=== PATIENT | male | born 1965 | race Caucasian/White ===

== ENCOUNTER → 2017-08-29 15:43 | Outpatient (CLI) | payer BC, SELFPAY ==
[2017-08-29 18:11] LABS: ALB/GLOB Ratio 1.1 RATIO (0.9-2.4); AST(SGOT) 17 U/L (15-37); Alanine Aminotransfer ALT/SGPT 29 U/L (16-61); Albumin, Serum 3.8 g/dL (3.2-5.0); Alkaline Phosphatase 63 U/L (45-117); Anion Gap 5 (5-15); BUN 16 mg/dL (7-18); BUN/Creat Ratio 16.4 RATIO (10-20); Calcium,Total 8.5 mg/dL (8.5-10.1); Chloride 106 mmol/L (98-107); Cholesterol 153 mg/dL (200); Creatinine, Serum 0.98 mg/dL (0.70-1.30); EST Glomerular Filtration Rate 86 mL/min (>60); Est Glom Filt Rate - Afr Amer 104 mL/min (>60); Globulin 3.4 g/dL (2.2-4.2); Glucose 85 mg/dL (74-106); High Density Lipoprotein 51 mg/dL; PSA,Total - Annual Screen 0.34 ng/mL (0.00-4.00); Protein, Total 7.2 g/dL (6.4-8.2); Sodium Level 140 mmol/L (136-145); Triglycerides 62 mg/dL; Very Low Density Lipoprotein 12 mg/dL (5-40)
== END ==
PROVIDERS: Family Provider Family Medicine; PCP Family Medicine; Visit Provider Family Medicine
DX: R73.01 Impaired fasting glucose (principal); Z12.5 Encounter for screening for malignant neoplasm of prostate
CPT/HCPCS: 36415; 80053; 80061; 84153; G0103

== ENCOUNTER → 2018-02-10 15:33 | Outpatient (CLI) | payer BC, SELFPAY ==
--- NOTE | 2018-02-10 15:38 | RAD_ITS ---
STUDY: X-RAY - PELVIS AND BILATERAL HIPS REASON FOR EXAM: Male, 52 years old. Osteoarthritis TECHNIQUE: Radiological exam, hip, bilateral, with pelvis when performed; 3-4 views COMPARISON: None. FINDINGS: There is a non-specific bowel gas pattern. Normal visualized soft tissue structures. There is narrowing with cortical sclerosis and osteophyte formation of the sacroiliac joint consistent with degenerative osteoarthritic changes. Normal bilateral superior and inferior pubic rami. Normal pubic symphysis. Normal bilateral ischial tuberosities. There is advanced narrowing of the right hip joint with sclerosis and subchondral cyst formation and remodeling of the right femoral head. There is moderate narrowing of the left hip joint. RAD/HIP, UNI W/ Pelvis 2-3 Views IMPRESSION: Severe degenerative change of the right hip joint. Moderate degenerative change of the left hip joint. Electronically Signed: Sarah Carrasco MD at 15:39 EDT Tel , Service support ,
--- NOTE | 2018-02-10 15:38 | RAD_ITS ---
STUDY: X-RAY - LUMBAR SPINE REASON FOR EXAM: Male, 52 years old. Lumbar spine pain TECHNIQUE: 5 view(s) of the lumbar spine were obtained. COMPARISON: None FINDINGS: There is a straightening of the physiologic lordosis. There is no substantial scoliosis. There is a normal alignment of the vertebrae. There is multilevel endplate spondylosis of the lumbar vertebrae. There is mild disc space narrowing L1-L2 L2-L3 and L5-S1. There is no apparent acute loss of height or alignment. The soft tissue structures are unremarkable. RAD/L/S Spine Min 4 Views IMPRESSION: Degenerative change. Straightening of the physiologic lordosis which can be associated with muscle spasm or pain. Electronically Signed: Sarah Carrasco MD at 15:38 EDT Tel , Service support ,
== END ==
PROVIDERS: Family Provider Family Medicine; PCP Family Medicine; Referring Provider Family Medicine; Visit Provider Family Medicine
DX: M16.10 Unilateral primary osteoarthritis, unspecified hip (principal); M54.5 Low back pain
CPT/HCPCS: 72110; 73502

== ENCOUNTER 2018-04-01 16:30 | Outpatient (RCR) | payer BC, SELFPAY ==
--- NOTE | 2018-02-19 13:05 | HP.PTEVAL_ITS ---
Patient's Visit Information CHERRY SAUCEDA is a 52 year old M referred to Physical Therapy by Kj Schilling with a diagnosis of Hip OA. Date of Evaluation: 02/19/18 Physical Therapist: Norma Wellington - Visit Plan Frequency: 2x /Week Duration: 6 Weeks Plan: 2X/ week for 6 weeks for stretching of B hips to increase flexability, B hip and core strength, gait training to aim for larger strides, functional activities with HEP/gym membership routine. Pt's x-rays show severe OA R hip and moderate OA L hip - Subjective Subjective: Pt has increased pressure around the lower waist and legs and stiffness of the legs so much that a few weeks ago it became very stiff to walk around. His R hip is going bad and thinks that the L one is going bad also. 5 years ago he had an x-ray of the R hip and that time his R hip showed moderate hip arthritis. He does not take pain relievers until more recently. He was given some meloxicam and takes one daily. He did get a muscle relalor every day and does help a little.... The biggest problems is that his muscles are tight and tense. He can not exercise cause it has been getting difficult to get on a radha and spread his legs and also to ride the mower. SOmedays he is stiff and other days he is fine. Stairs: are difficult. He was trying to walk but everything got stiff but feels more on lower body. He has been under more stress lately and his back is tense as well as legs etc. Last 6 months felt more stiffer. He sits at a desk all day. He does get up some.... - Pain R hip pain Pain Intensity (Out of 10): 7 L hip pain Pain Intensity (Out of 10): 4 back pain Pain Intensity (Out of 10): 5 - Objective Gait: walks with short stride, heels together, walks with his R forefoot abducted. Pt has a difficult time rise his heel on the R compared to the L. He is able to raise toes B with decreased ROM. Trunk AROM: flexion 100%, ext to neutral, SB B 75%. Tight B HS, gastroc, hip flexor, and adductors, and pirifomis B. Pt actually has almost negative AROM R hip IR and diminshed L hip IR on the L. Very limited into B Hip ER/IR AROM. LE MMT: hip abd R 4-/5 and L 4/5, B hip ext 3-/5. R hip flex 3+/5 and L 4/5, B knee flexion 4-/5, B knee ext 4/5 - Goals Goal 1:: I HEP Goal Time Frame: 6-8 Weeks Goal 2:: Decrease overall stiffness and be able to move through ADL's with increase 50% ease Goal Time Frame: 6-8 Weeks Goal 3:: Walk with increase strides without increase pain Goal Time Frame: 6-8 Weeks Goal 4:: Be able to get onto a bike without having feeling of pulled groin Goal Time Frame: 6-8 Weeks - Rehabilitation Potential Rehabilitation Potential: Good - Anticipated Interventions Patient/Client Instruction: Educate patient on: Condition, Plan of Care For the Purpose of:: To decrease pain, To decrease swelling/inflammation, To increase ROM, To improve nutrient delivery to tissue, To improve muscle performance and motor function, To improve ability to perform ADL's, To increase tolerance to activity/condition/position, To improve performance and independence with ADL's, To improve ability of physical actions for home/community/work/leisure, To improve gait and locomotor functions, To improve health of tissue, To decrease soft tissue restriction, To increase flexibility/ROM, To improve endurance, To improve balance, To improve safety with gait Therapeutic Exercise to Include: Strength training, Balance training, Postural training, Flexibilty training, Gait and locomotor training, Neuromotor development, Passive ROM, Active ROM, Dynamic Lumbar Stabilization For the Purpose of:: To decrease pain, To decrease swelling/inflammation, To increase ROM, To increase oxygenation perfusion, To improve muscle performance a nd motor function, To improve ability to perform ADL's, To increase tolerance to activity/condition/position, To improve performance and independence with ADL's, To improve ability of physical actions for home/community/work/leisure, To improve gait and locomotor functions, To improve health of tissue, To decrease soft tissue restriction, To increase flexibility/ROM, To improve balance Manual Therapy Techniques to Include: Passive ROM, Soft tissue mobilization For the Purpose of:: To decrease pain, To increase ROM, To improve nutrient delivery to tissue, To improve muscle performance and motor function, To improve ability to perform ADL's Thank you for the opportunity to evaluate your patient. For Medicare and Medicare HMO plans, please review the plan of care and approve it. It will need to be FAXED BACK to us at [phone] for Medicare purposes. Please let me know if there are questions or concerns regarding this plan of care. Physician Signature: Date:
--- NOTE | 2018-03-04 17:10 | HP.PTEVAL ---
Patient's Visit Information CHERRY SAUCEDA is a 52 year old M referred to Physical Therapy by Kj Schilling with a diagnosis of Hip OA. Date of Evaluation: 02/19/18 Physical Therapist: Norma Wellington - Visit Plan Frequency: 2x /Week Duration: 6 Weeks Plan: Cont with focus on hip flexor stretching and inhibition. 2X/ week for 6 weeks for stretching of B hips to increase flexability, B hip and core strength, gait training to aim for larger strides, functional activities with HEP/gym membership routine. Pt's x-rays show severe OA R hip and moderate OA L hip - Subjective Subjective: Pt has increased pressure around the lower waist and legs and stiffness of the legs so much that a few weeks ago it became very stiff to walk around. His R hip is going bad and thinks that the L one is going bad also. 5 years ago he had an x-ray of the R hip and that time his R hip showed moderate hip arthritis. He does not take pain relievers until more recently. He was given some meloxicam and takes one daily. He did get a muscle relalor every day and does help a little.... The biggest problems is that his muscles are tight and tense. He can not exercise cause it has been getting difficult to get on a radha and spread his legs and also to ride the mower. SOmedays he is stiff and other days he is fine. Stairs: are difficult. He was trying to walk but everything got stiff but feels more on lower body. He has been under more stress lately and his back is tense as well as legs etc. Last 6 months felt more stiffer. He sits at a desk all day. He does get up some.... - Pain R hip pain Pain Intensity (Out of 10): 4 L hip pain Pain Intensity (Out of 10): 5 Comment: sore back pain Pain Intensity (Out of 10): 2 Comment: sore - Objective Gait: walks with short stride, heels together, walks with his R forefoot abducted. Pt has a difficult time rise his heel on the R compared to the L. He is able to raise toes B with decreased ROM. Trunk AROM: flexion 100%, ext to neutral, SB B 75%. Tight B HS, gastroc, hip flexor, and adductors, and pirifomis B. Pt actually has almost negative AROM R hip IR and diminshed L hip IR on the L. Very limited into B Hip ER/IR AROM. LE MMT: hip abd R 4-/5 and L 4/5, B hip ext 3-/5. R hip flex 3+/5 and L 4/5, B knee flexion 4-/5, B knee ext 4/5 - Goals Goal 1:: I HEP Goal Time Frame: 6-8 Weeks Goal 2:: Decrease overall stiffness and be able to move through ADL's with increase 50% ease Goal Time Frame: 6-8 Weeks Goal 3:: Walk with increase strides without increase pain Goal Time Frame: 6-8 Weeks Goal 4:: Be able to get onto a bike without having feeling of pulled groin Goal Time Frame: 6-8 Weeks - Rehabilitation Potential Rehabilitation Potential: Good - Anticipated Interventions Patient/Client Instruction: Educate patient on: Condition, Plan of Care For the Purpose of:: To decrease pain, To decrease swelling/inflammation, To increase ROM, To improve nutrient delivery to tissue, To improve muscle performance and motor function, To improve ability to perform ADL's, To increase tolerance to activity/condition/position, To improve performance and independence with ADL's, To improve ability of physical actions for home/community/work/leisure, To improve gait and locomotor functions, To improve health of tissue, To decrease soft tissue restriction, To increase flexibility/ROM, To improve endurance, To improve balance, To improve safety with gait Therapeutic Exercise to Include: Strength training, Balance training, Postural training, Flexibilty training, Gait and locomotor training, Neuromotor development, Passive ROM, Active ROM, Dynamic Lumbar Stabilization For the Purpose of:: To decrease pain, To decrease swelling/inflammation, To increase ROM, To increase oxygenation perfusion, To improve muscle performance and motor function, To improve ability to perform ADL's, To increase tolerance to activity/condition/position, To improve performance and independence with ADL's, To improve ability of physical actions for home/community/work/leisure, To improve gait and locomotor functions, To improve health of tissue, To decrease soft tissue restriction, To increase flexibility/ROM, To improve balance Manual Therapy Techniques to Include: Passive ROM, Soft tissue mobilization For the Purpose of:: To decrease pain, To increase ROM, To improve nutrient delivery to tissue, To improve muscle performance and motor function, To improve ability to perform ADL's Thank you for the opportunity to evaluate your patient. For Medicare and Medicare HMO plans, please review the plan of care and approve it. It will need to be FAXED BACK to us at [phone] for Medicare purposes. Please let me know if there are questions or concerns regarding this plan of care. Physician Signature: Date:
--- NOTE | 2018-04-01 17:25 | HP.PTDCSUM ---
HP - PT D/C Summary It has been my pleasure to treat CHERRY SAUCEDA under orders from Kj Schilling, for the diagnosis of Hip OA for a total of 12 visit(s). Discharge Date: 04/01/18 Please see the following information for a summary of their discharge status. - Subjective Subjective: Pt feels 60-70% improvement. He is now able to get on a stationary bike. Pts pain comes and goes depending on whether he sits to long or not. Really no rhyme or reason to it. Pt still able to sit and has to pull one leg up at a time. - Pain R hip pain Pain Intensity (Out of 10): 5 L hip pain Pain Intensity (Out of 10): 5 back pain Pain Intensity (Out of 10): 5 - Overall Improvement % Improvement: 70 - Objective Objective/Function: Gait: Walks with increased stride than at the eval....still not normal stride but definitly improved. - Goals Goal 1:: I HEP Goal Progress: Goal Met Goal 2:: Decrease overall stiffness and be able to move through ADL's with increase 50% ease Goal Progress: Goal Met Goal 3:: Walk with increase strides without increase pain Goal Progress: Progressing Goal 4:: Be able to get onto a bike without having feeling of pulled groin Goal Progress: Goal Met - Plan Plan: DC PT to Gym routine - D/C Information Discharge Comments: DC PT to HEP If there are questions or concerns regarding this patient's physical therapy, please feel free to call me at [phone]. Thank you for the referral of this patient. Sincerely, Norma Wellington
== END 2018-04-01 19:00 | disposition home or self-care (01) ==
LOC: PT 16:30
PROVIDERS: Family Provider Family Medicine; PCP Family Medicine; Referring Provider Family Medicine; Visit Provider Family Medicine
DX: M16.10 Unilateral primary osteoarthritis, unspecified hip (principal)
CPT/HCPCS: 97110; 97161

== ENCOUNTER 2020-12-01 12:40 | Emergency (ER) | payer OTHER, SELFPAY ==
[2020-12-01 12:42] VITALS: BP 150/96; PULSE 105; RESP 16; TEMP 35.8; O2SAT 96; BMI 42.0
--- NOTE | 2020-12-01 13:00 | CT_ITS ---
STUDY: CT ABDOMEN AND PELVIS WITHOUT CONTRAST REASON FOR EXAM: Male, 55 years old. Lower abdominal pain for 2 days. Abdominal cramping. Painful urination. RADIATION DOSAGE (If Supplied By Facility): CTDIvol = ( 22.49 ) mGy, DLP = ( 1560.55 ) mGycm TECHNIQUE: Transaxial images were obtained from the dome of the diaphragm to the symphysis pubis without oral contrast, and without intravenous contrast. Sagittal and coronal images were reconstructed. Individualized dose optimization techniques were used for this CT. COMPARISON: None. FINDINGS: Minimal increased linear markings at the lung bases suggestive of atelectasis. The visualized portions of the heart are within normal limits. Normal liver. Normal gallbladder and extrahepatic biliary system. Normal spleen. Normal pancreas. Normal bilateral adrenal glands. Normal right kidney. Normal left kidney. Normal visualized stomach. Normal small intestine. There is diverticulosis, with thickening of the colon wall, and pericolonic inflammation changes consistent with acute sigmoid diverticulitis. The appendix is visualized and appears normal. There is scattered atherosclerotic calcification of the abdominal aorta, without a demonstrated aneurysm. Normal inferior vena cava. Normal retroperitoneum. Normal urinary bladder. Normal abdominal wall. There are diffuse degenerative changes of the visualized lumbar spine. The patient is status post bilateral total hip replacements. CT/Abdomen/Pelvis without Cont IMPRESSION: Findings in keeping with a noncomplicated acute sigmoid diverticulitis with pericolonic inflammatory changes. Electronically Signed: Tony Burton MD at 13:54 EDT , Service support ,
[2020-12-01 13:04] VITALS: BP 150/96; PULSE 105; RESP 16; TEMP 35.8; O2SAT 96
[2020-12-01 13:33] LABS: White Blood Cells 0 SEEN /hpf (0-5)
[2020-12-01 13:36] LABS: Color, Urine Yellow (Yellow); Glucose, Dipstick Normal (Normal); Ketone-Dipstick 50 mg/dl (Negative); Leukocyte Esterase-Dipstick 25 /ul (Negative); Nitrite-Dipstick Negative (Negative); Occult Blood-Urine 150 /ul (Negative); Protein-Dipstick 30 mg/dl (Negative); Specific Gravity, Urine 1.025 (1.002-1.030); Urine Bilirubin Dipstick Negative (Negative); Urine Clarity Sl. Cloudy (Clear); Urine Urobilinogen 4 mg/dl (Normal)
[2020-12-01 13:37] LABS: Absolute Lymphocyte Count 1.66 X10^3/uL (0.83-4.51); Absolute Neutrophil Count 12.6 X10^3/uL (2.0-7.7); Basophil# 0.08 X10^3/uL; Basophil% 0.5 % (0-1); Differential Indicated SCAN CRITERIA MET; Eosinophil# 0.07 X10^3/uL; Eosinophils% 0.4 % (0-5); Lymphocyte # 1.66 X10^3/ul (0.83-4.51); Lymphocyte % 10.1 % (19-41); Mean Corp Hgb Conc 33.3 g/dL (32-36); Mean Corpuscular Hgb 27.8 pg (27.0-32.0); Mean Corpuscular Volume 83.3 fL (80-94); Mean Platelet Vol. 10.1 fl (6.2-12.0); Monocyte# 1.91 X10^3/uL; Monocyte% 11.6 % (0-10); NRBC Flagged by Analyzer 0 % (0-5); Neutrophil # 12.58 X10^3/uL (2.7-7.7); Neutrophil % 76.8 % (47-70); POSITIVE DIFFERENTIAL YES; Platelet Count 300 K/mm3 (150-450); RBC Distribution Width CV 14.1 % (11.6-14.6); RBC Distribution Width SD 42.5 fl (35.1-43.9); Red Blood Count 5.76 M/mm3 (4.6-6.2); White Blood Count 16.4 K/mm3 (4.4-11.0)
[2020-12-01 13:51] LABS: ALB/GLOB Ratio 0.8 RATIO (0.9-2.4); AST(SGOT) 21 U/L (15-37); Alanine Aminotransfer ALT/SGPT 34 U/L (16-61); Albumin, Serum 3.7 g/dL (3.2-5.0); Alkaline Phosphatase 64 U/L (45-117); Anion Gap 4 (5-15); BUN 11 mg/dL (7-18); BUN/Creat Ratio 10.4 RATIO (10-20); Calcium,Total 8.9 mg/dL (8.5-10.1); Chloride 101 mmol/L (98-107); Creatinine, Serum 1.06 mg/dL (0.70-1.30); EST Glomerular Filtration Rate 77 mL/min (>60); Est Glom Filt Rate - Afr Amer 94 mL/min (>60); Estimated Creatinine Clearance 92.63 ml/min; Globulin 4.5 g/dL (2.2-4.2); Glucose 120 mg/dL (74-106); Lipase 44 U/L (73-393); Potassium 3.8 mmol/L (3.5-5.1); Protein, Total 8.2 g/dL (6.4-8.2); Sodium Level 133 mmol/L (136-145)
[2020-12-01 13:54] LABS: Bacteria RARE /hpf (None Seen); Mucous, Urine 2+ /hpf (<or=2+); Red Blood Cells-Urine 0-5 SEEN /hpf (0-5); Squamous Epithelial Cells - UA 0-5 SEEN /hpf (0-5)
--- NOTE | 2020-12-01 14:08 | EX.ED.DYSGE1 ---
HPI History of Present Illness Chief Complaint: Other, Pain/Inj Narrative Narrative: Patient presents with 2 to 3-day history of abdominal pain and decreased p.o. intake. No blood in the stool, no constipation. No rectal pain. Most of the pain is suprapubic and left lower quadrant. No back pain no dysuria no testicular pain. Pain is achy mild to moderate and constant. PFSH PFSH Home Medications ciprofloxacin HCl 500 mg PO BID #14 tab 12/01/20 [Rx Last Taken Unknown] ciprofloxacin HCl [Cipro] 500 mg PO BID #14 tab 12/01/20 [Rx Last Taken Unknown] metronidazole [Flagyl] 500 mg PO Q8H #21 tab 12/01/20 [Rx Last Taken Unknown] metronidazole [Flagyl] 500 mg PO Q8H 7 Days #21 tab 12/01/20 [Rx Last Taken Unknown] oxycodone-acetaminophen [Percocet] 1 tab PO Q8H PRN 3 Days #10 tab 12/01/20 [Rx Last Taken Unknown] oxycodone-acetaminophen [Percocet] 1 tab PO Q8H PRN 3 Days #12 tab 12/01/20 [Rx Last Taken Unknown] Allergy/AdvReac Type Severity Reaction Status Date / Time No Known Allergies Allergy Verified 12/01/20 12:44 Social History Smoking Status: Never smoker ROS ROS ED ROS Narrative Past medical history: Reviewed, unremarkable Medications: Reviewed Social history: Noncontributory Review of systems: All systems negative except as indicated General: No fever Eyes: No visual changes ENT: No upper airway congestion, normal voice Neck: No neck pain Cardiovascular: No chest pain Respiratory: No shortness of breath or cough Gastrointestinal: Abdominal pain as in HPI Genitourinary: No dysuria Musculoskeletal: Denies myalgias no difficulty with ambulation Skin: No rash Neurological: No memory loss, confusion or any focal weakness Psych: No recent behavioral changes Hematologic: No easy bleeding or easy bruising EXAM Physical Exam Narrative Exam Narrative: Physical exam General: Well nourished, Well developed, No Acute Distress Head: Normocephalic, Atraumatic Eyes: Conjunctiva not pale ENT: Moist mucous membranes Neck: Supple, Nontender, No lymphadenopathy Cardiovascular: Regular rate, Regular rhythm Respiratory: No distress, CTA bilaterally Abdomen: Soft, suprapubic and left lower quadrant abdominal pain without any guarding or rebound. No CVA tenderness. Back: Nontender, Normal Inspection. Negative for: CVA tenderness Extremities: Nontender, No edema Skin: Normal color, No rash Neurological: Alert, Normal Strength, Normal Sensation Psychological: Normal affect Const Vital Signs: 12/01/20 12:42 12/01/20 13:04 Temperature 96.4 F L 96.4 F L Temperature Source Temporal Temporal Pulse Rate 105 H 105 H Respiratory Rate 16 16 Blood Pressure 150/96 H 150/96 H Blood Pressure Mean 114 114 Pulse Ox 96 96 Oxygen Delivery Method Room Air Room Air MDM MDM MDM Narrative Medical decision making narrative: Patient work-up is consistent with diverticulitis, it is uncomplicated with slight leukocytosis. I believe he meets criteria for discharge with outpatient treatment. He appears well. I will give IV Cipro and Flagyl and treat for home. He will be discharged with antibiotics and analgesics. Lab Data Labs: Laboratory Results - last 24 hr 12/01/20 12/01/20 12/01/20 13:23 13:23 13:23 WBC 16.4 H RBC 5.76 Hgb 16.0 Hct 48.0 MCV 83.3 MCH 27.8 MCHC 33.3 RDW Std Deviation 42.5 RDW Coeff of [place] 14.1 Plt Count 300 MPV 10.1 Immature Gran % (Auto) 0.600 Neut % (Auto) 76.8 H Lymph % (Auto) 10.1 L [place] % (Auto) 11.6 H Eos % (Auto) 0.4 Baso % (Auto) 0.5 Absolute Neuts (auto) 12.6 H Absolute Lymphs (auto) 1.66 Nucleated RBC % 0 Diff Path Review May foll Sodium 133 L Potassium 3.8 Chloride 101 Carbon Dioxide 28.0 Anion Gap 4 L BUN 11 Creatinine 1.06 Estim Creat Clear Calc 92.63 Est GFR (MDRD) Af Amer 94 Est GFR (MDRD) Non-Af 77 BUN/Creatinine Ratio 10.4 Glucose 120 H Calcium 8.9 Total Bilirubin 1.60 H AST 21 ALT 34 Alkaline Phosphatase 64 Total Protein 8.2 Albumin 3.7 Globulin 4.5 H Albumin/Globulin Ratio 0.8 L Lipase 44 L Urine Color Yellow Urine Clarity Sl. Cloudy Urine pH 5.0 Ur Specific [place] 1.025 Urine Protein 30 H Urine Glucose (UA) Normal Urine Ketones 50 H Urine Occult Blood 150 H Urine Nitrite Negative Urine Bilirubin Negative Urine Urobilinogen 4 H Ur Leukocyte Esterase 25 H Urine RBC 0-5 SEEN Urine WBC 0 SEEN Ur Squamous Epith Cells 0-5 SEEN Urine Bacteria RARE Urine Mucus 2+ Radiography Diagnostic Testing: Radiology Impression Abdomen/Pelvis CT 12/01/20 13:00 IMPRESSION: Findings in keeping with a noncomplicated acute sigmoid diverticulitis with pericolonic inflammatory changes. Electronically Signed: Tony Burton MD at 13:54 EDT , Service support , Discharge Plan Triage Chief Complaint: Other, Pain/Inj ED Provider: Rohit Castorena Dx/Rx/DC Orders Clinical Impression: Diverticulitis Instructions: Discharge Instructions for ... Prescriptions: New oxycodone-acetaminophen [Percocet] 5-325 mg tablet 1 tab PO Q8H PRN (Reason: pain) 3 Days Qty: 12 RF: 0 ciprofloxacin HCl [Cipro] 500 mg tablet 500 mg PO BID Qty: 14 RF: 0 metronidazole [Flagyl] 500 mg tablet 500 mg PO Q8H 7 Days Qty: 21 RF: 0 ciprofloxacin HCl [ciprofloxacin HCl] 500 MG tablet 500 mg PO BID Qty: 14 RF: 0 metronidazole [Flagyl] 500 mg tablet 500 mg PO Q8H Qty: 21 RF: 0 oxycodone-acetaminophen [Percocet] 5-325 mg tablet 1 tab PO Q8H PRN (Reason: pain) 3 Days Qty: 10 RF: 0 Primary Care Provider: Scott Schilling Referrals: Scott Schilling MD [Primary Care Provider] - 2 Days Disposition Disposition: Home, Self Care
[2020-12-01] MEDS: metroNIDAZOLE 500 MG/100 ML BAG 100 MG IV (14:15)
[2020-12-01] MEDS: Ciprofloxacin 400 MG/200 ML BAG 200 MG IV (15:19)
[2020-12-01 16:25] VITALS: BP 135/78; PULSE 76; RESP 16; O2SAT 99
[2020-12-02 13:47] LABS: Pathologist Review Reviewed
== END 2020-12-01 16:29 | disposition home or self-care (01) ==
PROVIDERS: Emergency Provider Emergency Medicine; PCP Family Medicine
DX: K57.92 Diverticulitis of intestine, part unspecified, without perforation or abscess without bleeding (principal)
CPT/HCPCS: 74176; 80053; 81001; 83690; 85025; 96365; 99283; J7030; A4216; J0744

== ENCOUNTER → 2024-06-08 | Outpatient (CLI) | payer BC, SELFPAY ==
[2024-06-08 16:16] LABS: Anion Gap 6 (5-15); BUN 18 mg/dL (7-18); BUN/Creat Ratio 16.5 RATIO (10-20); Calcium,Total 9.4 mg/dL (8.5-10.1); Chloride 104 mmol/L (98-107); Cholesterol 171 mg/dL (200); Creatinine, Serum 1.09 mg/dL (0.70-1.30); EST Glomerular Filtration Rate 74 mL/min (>60); Est Glom Filt Rate - Afr Amer 89 mL/min (>60); Glucose 115 mg/dL (74-106); High Density Lipoprotein 47 mg/dL; Potassium 4.6 mmol/L (3.5-5.1); Sodium Level 137 mmol/L (136-145); Triglycerides 94 mg/dL; Very Low Density Lipoprotein 19 mg/dL (5-40)
[2024-06-08 17:46] LABS: Absolute Lymphocyte Count 2.79 X10^3/uL (0.83-4.51); Absolute Neutrophil Count 6.3 X10^3/uL (2.0-7.7); Basophil% 0.9 % (0-1); Eosinophil# 0.44 X10^3/uL; Hemoglobin 14.3 g/dL (13.0-16.5); Lymphocyte # 2.79 X10^3/ul (0.83-4.51); Lymphocyte % 25.4 % (19-41); Mean Corp Hgb Conc 31.8 g/dL (32-36); Mean Corpuscular Hgb 26.8 pg (27.0-32.0); Mean Corpuscular Volume 84.4 fL (80-94); Mean Platelet Vol. 10.3 fl (6.2-12.0); Monocyte# 1.27 X10^3/uL; Monocyte% 11.6 % (0-10); NRBC Flagged by Analyzer 0 % (0-5); Neutrophil # 6.34 X10^3/uL (2.7-7.7); Neutrophil % 57.6 % (47-70); Platelet Count 337 K/mm3 (150-450); RBC Distribution Width CV 14.5 % (11.6-14.6); RBC Distribution Width SD 43.9 fl (35.1-43.9); Red Blood Count 5.33 M/mm3 (4.6-6.2)
[2024-06-08 18:11] LABS: AST(SGOT) 23 U/L (15-37); Alanine Aminotransfer ALT/SGPT 28 U/L (16-61); Albumin, Serum 3.5 g/dL (3.2-5.0); Alkaline Phosphatase 62 U/L (45-117); Bilirubin, Direct 0.13 mg/dL (0.00-0.30); Globulin 4.6 g/dL (2.2-4.2); Protein, Total 8.1 g/dL (6.4-8.2)
[2024-06-08 18:23] LABS: BNP,B-Type NATRIURETIC PEPTIDE 61.7 pg/mL (0-100)
== END | disposition home or self-care (01) ==
LOC: MFPLAB 11:26
PROVIDERS: PCP Family Medicine; Referring Provider Family Medicine; Visit Provider Family Medicine
DX: R60.0 Localized edema (principal); Z13.1 Encounter for screening for diabetes mellitus; Z13.220 Encounter for screening for lipoid disorders; Z12.5 Encounter for screening for malignant neoplasm of prostate
CPT/HCPCS: 36415; 80048; 80061; 80076; 83880; 84153; 84443; 85025; G0103

== ENCOUNTER → 2025-01-20 | Outpatient (CLI) | payer BC, SELFPAY ==
[2025-01-20 16:47] LABS: Mucous, Urine 0 SEEN /hpf (<or=2+)
[2025-01-20 17:59] LABS: Color, Urine Amber (Yellow); Glucose, Dipstick 100 mg/dl (Normal); Ketone-Dipstick 5 mg/dl (Negative); Leukocyte Esterase-Dipstick 500 /ul (Negative); Nitrite-Dipstick Positive (Negative); Occult Blood-Urine 150 /ul (Negative); Protein-Dipstick 30 mg/dl (Negative); Specific Gravity, Urine 1.025 (1.002-1.030); Urine Bilirubin Dipstick Negative (Negative)
[2025-01-20 18:16] LABS: Red Blood Cells-Urine 5-10 SEEN /hpf (0-5); Squamous Epithelial Cells - UA 5-10 SEEN /hpf (0-5); Transitional Epithelial - Ur 0-5 SEEN /hpf (0-5)
== END | disposition home or self-care (01) ==
LOC: LABSPEC 16:46
PROVIDERS: PCP Family Medicine; Visit Provider Family Medicine
DX: R39.11 Hesitancy of micturition (principal)
CPT/HCPCS: 81001; 87086; 87088; 87186

== ENCOUNTER 2025-01-21 16:26 | Inpatient (IN) | payer BC, SELFPAY ==
[2025-01-21] VITALS (15 sets, daily range): BP systolic 112–155; BP diastolic 61–131; PULSE 97–109; RESP 17–27; TEMP 36.3–37.4; O2SAT 92–96; BMI 44.0; BMI 43.3
--- NOTE | 2025-01-21 16:58 | RAD_ITS ---
PROCEDURE: CHEST PA AND LATERAL 01/21/2025 REASON FOR EXAM: SHORTNESS OF BREATH TECHNIQUE: Procedure Code: RADCXR Modality: DX Procedure: CHEST PA AND LATERAL COMPARISON: None. FINDINGS: Lungs/Pleura: No pneumothorax or pleural effusion. Bilateral patchy and reticular airspace opacities may be related to pulmonary edema, versus an infectious/inflammatory process. Heart/Mediastinum: Within normal limits. Bones/Soft tissues: Multilevel degenerative changes of the spine. RAD/Chest PA and Lateral IMPRESSION: Bilateral patchy and reticular airspace opacities may be related to pulmonary e nas, versus an infectious/inflammatory process depending on the clinical context. No pleural effusions. Reading Location: [facility]
--- NOTE | 2025-01-21 17:03 | ED.VIS.DYS ---
HPI History of Present Illness Chief Complaint: Shortness of Breath Narrative Narrative: Chief complaint and HPI: 59-year-old male with past medical history of sleep apnea presents for evaluation of chronic shortness of breath, peripheral edema, and urinary incontinence/frequency. Patient states for the past several months he has been having progressively worsening exertional shortness of breath. States he has a chronic cough with occasional clear/yellow phlegm. No history of COPD. Non-smoker. States for several months he has been having bilateral lower extremity edema which his PCP attributes to his sleep apnea. He does not use a CPAP and is scheduled to have a sleep study. Also endorses urinary incontinence and frequency over the past several days. No history of CHF. He denies any fever, chest pain, abdominal pain, nausea, vomiting, diarrhea, constipation, back pain. Review of systems: See HPI Medications: As listed on the chart Allergies: As listed on the chart PFSH: Per chart Vital signs: As listed on the chart. Reviewed. Physical exam: Gen: A&O x3, NAD Head: Normocephalic, atraumatic Eyes: No sclera icterus, conjunctiva clear, PERRL ENT: Moist mucous membranes Neck: Trachea midline, No JVD CV: Tachycardic, regular rhythm, no murmurs, bilateral nonpitting peripheral edema Resp: Lungs CTA BL but diminished in the bilateral bases, no w/r/c GI: Large body habitus, abd soft, non-distended, non-tender, no r/r/g Musc: Full ROM, no deformity Skin: Warm, dry Neuro: Alert, oriented, grossly intact, sensation intact Psych: Cooperative, appropriate mood and affect PFS PFS Medical History (Updated 01/21/25 @ 17:18 by Linda Ramirez) Diverticulitis Sleep apnea Home Medications ?Medication ?Instructions ?Recorded ?Last Taken ?Type hydroxyzine HCl 50 mg tablet 50 mg PO QHS PRN itching 01/21/25 Unknown History Allergy/AdvReac Type Severity Reaction Status Date / Time No Known Allergies Allergy Verified 01/21/25 16:30 Family History no significant family his Surgical History (Updated 01/21/25 @ 16:55 by Linda Ramirez) History of hip replacement Social History (Updated 01/21/25 @ 16:55 by Linda Ramirez) current occupational status: employed Smoking Status: Never smoker EXAM Physical Exam Const Vital Signs: 01/21/25 16:27 01/21/25 17:24 01/21/25 17:26 Temperature 98.8 F Temperature Source Temporal Pulse Rate 109 H 104 H Respiratory Rate 22 H 20 H Respiratory Effort Short of Breath Respiratory Depth Normal Respiratory Pattern Tachypnea Blood Pressure 152/96 H Blood Pressure Mean 114 Pulse Ox 96 94 Oxygen Delivery Method Room Air Room Air 01/21/25 17:30 01/21/25 17:30 01/21/25 17:45 Temperature 99.3 F H Temperature Source Oral Pulse Rate 102 H 102 H 105 H Respiratory Rate 21 H 20 H 27 H Respiratory Effort Respiratory Depth Respiratory Pattern Blood Pressure 132/81 H 132/81 H 135/113 H Blood Pressure Mean 96 98 121 Pulse Ox 93 94 94 Oxygen Delivery Method Room Air 01/21/25 18:00 01/21/25 18:15 01/21/25 18:30 Temperature Temperature Source Pulse Rate 100 100 97 Respiratory Rate 26 H 21 H 26 H Respiratory Effort Respiratory Depth Respiratory Pattern Blood Pressure 112/85 H 140/80 H 134/86 H Blood Pressure Mean 90 96 100 Pulse Ox 92 92 92 Oxygen Delivery Method 01/21/25 18:45 01/21/25 19:00 01/21/25 19:00 Temperature 99.1 F Temperature Source Oral Pulse Rate 101 H 101 H 101 H Respiratory Rate 20 H 26 H 20 H Respiratory Effort Respiratory Depth Respiratory Pattern Blood Pressure 138/89 H 140/87 H 144/131 H Blood Pressure Mean 102 104 137 Pulse Ox 93 94 92 Oxygen Delivery Method Room Air 01/21/25 19:15 Temperature 98.3 F Temperature Source Pulse Rate 104 H Respiratory Rate 18 Respiratory Effort Respiratory Depth Respiratory Pattern Blood Pressure 135/84 H Blood Pressure Mean 101 Pulse Ox 94 Oxygen Delivery Method MDM MDM MDM Narrative Medical decision making narrative: 59-year-old male with past medical history of sleep apnea presents for evaluation of chronic shortness of breath, peripheral edema, and urinary incontinence/frequency. Patient states for the past several months he has been having progressively worsening exertional shortness of breath. States he has a chronic cough with occasional clear/yellow phlegm. States for several months he has been having bilateral lower extremity edema which his PCP attributes to his sleep apnea. Also endorses urinary incontinence and frequency over the past several days. Differential diagnosis includes but is not limited to CHF exacerbation, pneumonia, untreated EDOUARD, arrhythmia, ACS, PE, UTI. Respiratory/cardiac workup including UA. CBC with leukocytosis of 22.7. No anemia. Platelets unremarkable. D-dimer unremarkable. CMP consistent with mild dehydration. Creatinine is 1.26. Previous creatinine in May was normal. Unknown if this is acute or chronic. No transaminitis. Troponin unremarkable. BNP unremarkable. UA positive for UTI. Urine culture ordered. Rocephin ordered. X-ray consistent with pulmonary edema however cannot officially rule out infection given that patient endorses a yellow phlegm will add on azithromycin along with the Rocephin for UTI which will cover community-acquired pneumonia as well as UTI. On reevaluation patient is mildly tachycardic. I do feel that he would benefit from admission for IV antibiotics and further workup of possible pulmonary edema. Lasix ordered. Patient discussed with Dr. Garrett who accepted admission. Patient updated of the results and the plan. He confirmed understanding. EKG: Interpreted by me/EM physician: EKG shows sinus tachycardia with nonspecific ST changes. Heart rate 105. Diagnostic: Interpreted by me/EM physician: Chest x-ray shows pulmonary edema concern for possible pneumonia. No large effusion or consolidation. No cardiomegaly. Radiology in agreement Impression: 1. UTI 2. Pulmonary edema 3. Possible pneumonia 4. Bilateral peripheral edema 5. Renal insufficiency, acute versus chronic Lab Data Labs: Laboratory Results - last 24 hr 01/21/25 01/21/25 16:44 17:49 WBC 22.7 H RBC 5.51 Hgb 15.0 Hct 44.5 MCV 80.8 MCH 27.2 MCHC 33.7 RDW Std Deviation 42.5 RDW Coeff of Martin 14.6 Plt Count 355 MPV 9.8 Immature Gran % (Auto) 1.000 H Neut % (Auto) 73.2 H Lymph % (Auto) 12.8 L Cobb % (Auto) 12.1 H Eos % (Auto) 0.3 Baso % (Auto) 0.6 Differential Comment SCANNED Platelet Estimate ADEQUATE D-Dimer Quant (PE/DVT) 0.48 Sodium 132 L Potassium 4.0 Chloride 96 L Carbon Dioxide 21.0 Anion Gap 15 BUN 13 Creatinine 1.26 H Estim Creat Clear Calc 100.83 Est GFR (MDRD) Non-Af 66 BUN/Creatinine Ratio 10.5 Glucose 180 H Calcium 9.2 Total Bilirubin 1.41 H AST 29 ALT 29 Alkaline Phosphatase 92 Troponin T High Sens 15 NT pro BNP II 88 Total Protein 8.8 H Albumin 4.2 Globulin 4.6 H Albumin/Globulin Ratio 0.9 Urine Color Flores Urine Clarity Turbid Urine pH 5.0 Ur Specific Mittie 1.025 Urine Protein 100 H Urine Glucose (UA) 50 H Urine Ketones 15 H Urine Occult Blood 150 H Urine Nitrite Positive H Urine Bilirubin 1 H Urine Urobilinogen 4 H Ur Leukocyte Esterase 500 H Urine RBC 0-5 SEEN Urine WBC 10-25 SEEN Ur Squamous Epith Cells 5-10 SEEN Amorphous Sediment 1+ Urine Bacteria 4+ Hyaline Casts 0-5 SEEN Fine Granular Casts 0-5 SEEN Coarse Granular Casts 0-5 SEEN Urine Mucus 1+ Radiography Diagnostic Testing: Clinical Impression(s) from Imaging Studies Chest X-Ray 01/21/25 16:58 IMPRESSION: Bilateral patchy and reticular airspace opacities may be related to pulmonary edema, versus an infectious/inflammatory process depending on the clinical context. No pleural effusions. Reading Location: [facility] Discharge Plan Triage Chief Complaint: Shortness of Breath ED Provider: Agustin Ferris Dx/Rx/DC Orders Prescriptions: No Action hydroxyzine HCl 50 mg tablet 50 mg PO QHS PRN (Reason: itching) Primary Care Provider: Kj Schilling Referrals: Kj Schilling MD [Primary Care Provider] - Print Language: Lithuanian
[2025-01-21 17:09] LABS: Hematocrit 44.5 % (40-54); Hemoglobin 15.0 g/dL (13.0-16.5); Mean Corp Hgb Conc 33.7 g/dL (32-36); Mean Corpuscular Volume 80.8 fL (80-94); Mean Platelet Vol. 9.8 fl (6.2-12.0); POSITIVE DIFFERENTIAL YES; Platelet Count 355 K/mm3 (150-450); RBC Distribution Width CV 14.6 % (11.6-14.6); RBC Distribution Width SD 42.5 fl (35.1-43.9); Red Blood Count 5.51 M/mm3 (4.6-6.2); White Blood Count 22.7 K/mm3 (4.4-11.0)
[2025-01-21 17:13] LABS: Differential Indicated SCAN CRITERIA MET
[2025-01-21 17:33] LABS: D-Dimer Quantitative (DVT/PE) 0.48 FEU/ug/m (0.27-0.49)
[2025-01-21 17:48] LABS: AST(SGOT) 29 U/L (<=37); Alanine Aminotransfer ALT/SGPT 29 U/L (<=46); Albumin, Serum 4.2 g/dL (3.5-5.0); Alkaline Phosphatase 92 U/L (40-129); Anion Gap 15 (5-15); BUN 13 mg/dL (4-19); BUN/Creat Ratio 10.5 RATIO (10-20); Calcium,Total 9.2 mg/dL (7.6-11.0); Carbon Dioxide 21.0 mmol/L (21.0-32.0); Chloride 96 mmol/L (98-108); Estimated Creatinine Clearance 100.83 ml/min (50-250); Globulin 4.6 g/dL (2.2-4.2); Glucose 180 mg/dL (70-99); Potassium 4.0 mmol/L (3.3-5.1); Pro- Brain NATRIURETIC PEPTIDE 88 pg/mL (<=900)
[2025-01-21 18:01] LABS: Troponin T High Sensitivity 15 ng/L (<=22)
[2025-01-21 18:04] LABS: Color, Urine Amber (Yellow); Glucose, Dipstick 50 mg/dl (Normal); Ketone-Dipstick 15 mg/dl (Negative); Leukocyte Esterase-Dipstick 500 /ul (Negative); Nitrite-Dipstick Positive (Negative); Occult Blood-Urine 150 /ul (Negative); Protein-Dipstick 100 mg/dl (Negative); Specific Gravity, Urine 1.025 (1.002-1.030)
[2025-01-21 18:06] LABS: Urine Bilirubin Dipstick 1 mg/dL (Negative)
[2025-01-21 18:21] LABS: Red Blood Cells-Urine 0-5 SEEN /hpf (0-5)
[2025-01-21 18:22] LABS: Squamous Epithelial Cells - UA 5-10 SEEN /hpf (0-5)
[2025-01-21 18:25] LABS: Fine Granular Cast- Urine 0-5 SEEN /lpf (0-5)
[2025-01-21 18:26] LABS: Mucous, Urine 1+ /hpf (<or=2+)
[2025-01-21] MEDS: Ceftriaxone 2 GM in 0.9% Normal Saline (50mL MB+) 50 ML IV (18:54)
--- NOTE | 2025-01-21 19:25 | HP.PCM.HOS_ITS ---
HPI - General General Date of Admission: 01/21/25 Date of Service: 01/21/25 Chief Complaint: Progressive shortness of breath HPI Narrative CHERRY SAUCEDA, is a 59 M who presented to [facility] ED on 01/21/2025 with progressive shortness of breath. Patient has minimal medical history, is not on any medications regularly at home. He presented today with progressively worsening shortness of breath over the past few months. Notes that symptoms became more noticeable in October of this year. He was treated with antibiotics at the time with some degree of improvement, but it has now worsened steadily over the past few months and has gotten to the point where he gets short of breath and winded with minimal exertion, so he came in for further evaluation. In the ED he was mildly tachycardic to the 100s, had low-grade fever to 99.3 F and mild hypertension to the 150s systolic. He was satting in the 92 to 94% range on room air at rest. Labs notable for WBC count 22 with neutrophil predominance, sodium 132, chloride 96, creatinine 1.26 (baseline around 1.0), glucose 180, T. bili 1.41. UA showed positive nitrites, 500 leukocyte esterase, 4+ bacteria. Chest x-ray showed bilateral patchy and reticular airspace opacities of unclear etiology. CT chest abdomen pelvis with IV contrast showed diffuse chronic interstitial lung disease and hepatomegaly with moderate diffuse hepatic steatosis. Given his presentation, hospitalist was contacted for admission. I saw the patient at bedside in the ED, was present. Patient was sitting comfortably at the edge of the bed, conversing normally and in no acute distress. He had good energy level during our encounter. Denied any shortness of breath at rest but notes that he does get winded with minimal exertion. He has had some lower extremity swelling but notes this is chronic for him. He reports mild burning with urination. Denies any prior history of UTIs or prostate issues. Reports generalized fatigue and low-grade fever. No other acute concerns currently. Will be admitted for further management. [facility] Medical History (Updated 01/21/25 @ 22:[address] Robert Garrett, DO) Diverticulitis Sleep apnea Home Medications ?Medication ?Instructions ?Recorded ?Last Taken ?Type hydroxyzine HCl 50 mg tablet 12.5 mg PO QHS PRN itchin g 01/21/25 01/14/25 08:00 History 12.5 mg Allergy/AdvReac Type Severity Reaction Status Date / Time No Known Allergies Allergy Verified 01/21/25 16:30 Family History no significant family his Surgical History (Updated 01/21/25 @ 16:55 by Linda Ramirez) History of hip replacement Social History (Updated 01/21/25 @ 16:55 by Linda Ramirez) current occupational status: employed Smoking Status: Never smoker ROS Constitutional Constitutional: Reports fatigue, fever(s) and malaise; Denies chills or weakness Eyes Eyes: Denies change in vision Cardiovascular Cardiovascular: Reports dyspnea on exertion and edema; Denies chest pain, lightheadedness, orthopnea or palpitations Respiratory/Chest Respiratory/Chest: Reports cough and shortness of breath with exertion; Denies productive cough, shortness of breath at rest or wheezing Gastrointestinal Gastrointestinal: Denies abdominal pain Genitourinary Genitourinary: Reports burning urination and urinary frequency; Denies dysuria or urinary urgency Musculoskeletal Musculoskeletal: Denies arthralgias or myalgias Neurologic Neurologic: Denies dizziness, focal weakness or headache(s) Vital Signs Vital Signs Vital Signs: 01/21/25 16:27 01/21/25 17:24 01/21/25 17:26 Temperature 98.8 F Temperature Source Temporal Pulse Rate 109 H 104 H Respiratory Rate 22 H 20 H Respiratory Effort Short of Breath Respiratory Depth Normal Respiratory Pattern Tachypnea Blood Pressure 152/96 H Blood Pressure Mean 114 Pulse Ox 96 94 Oxygen Delivery Method Room Air Room Air 01/21/25 17:30 01/21/25 17:30 01/21/25 17:45 Temperature 99.3 F H Temperature Source Oral Pulse Rate 102 H 102 H 105 H Respiratory Rate 21 H 20 H 27 H Respiratory Effort Respiratory Depth Respiratory Pattern Blood Pressure 132/81 H 132/81 H 135/113 H Blood Pressure Mean 96 98 121 Pulse Ox 93 94 94 Oxygen Delivery Method Room Air 01/21/25 18:00 01/21/25 18:15 01/21/25 18:30 Temperature Temperature Source Pulse Rate 100 100 97 Respiratory Rate 26 H 21 H 26 H Respiratory Effort Respiratory Depth Respiratory Pattern Blood Pressure 112/85 H 140/80 H 134/86 H Blood Pressure Mean 90 96 100 Pulse Ox 92 92 92 Oxygen Delivery Method 01/21/25 18:45 01/21/25 19:00 01/21/25 19:00 Temperature 99.1 F Temperature Source Oral Pulse Rate 101 H 101 H 101 H Respiratory Rate 20 H 26 H 20 H Respiratory Effort Respiratory Depth Respiratory Pattern Blood Pressure 138/89 H 140/87 H 144/131 H Blood Pressure Mean 102 104 137 Pulse Ox 93 94 92 Oxygen Delivery Method Room Air 01/21/25 19:15 Temperature 98.3 F Temperature Source Pulse Rate 104 H Respiratory Rate 18 Respiratory Effort Respiratory Depth Respiratory Pattern Blood Pressure 135/84 H Blood Pressure Mean 101 Pulse Ox 94 Oxygen Delivery Method Weight Weight: 155.582 kg Body Mass Index (BMI) 44.0 Physical Exam Const alert, oriented x3 and no apparent distress Constitutional Narrative: Pleasant middle-age male, class III obesity, sitting back comfortably in bedside chair, conversing normally, in no acute distress. General Appearance: cooperative and comfortable HEENT normocephalic, head/scalp atraumatic, hearing grossly normal bilaterally, nasal mucous membranes and turbinates normal and moist oral mucous membranes Eyes PERRL, EOMs intact bilaterally and conjunctivae normal Neck full ROM Chest inspection of chest normal Resp normal respiratory effort and no use of accessory muscles Resp Narrative: Breathing comfortably on room air at rest. Mildly diminished breath sounds bilaterally throughout with basilar crackles noted. No wheezing noted. Cardio no murmurs and peripheral pulses 2+ throughout Cardio Narrative: Tachycardic, regular rhythm. GI normal to inspection, nondistended, normoactive bowel sounds, soft to palpation, non-tender and non-distended Back/Spine normal ROM Extremity normal to inspection and full ROM Extremity Narrative: +1-2 nonpitting lower extremity edema noted. Skin no rashes or lesions noted Psych mental status grossly normal Results Lab / Micro Data 01/21/25 16:44 01/21/25 16:44 Labs: Laboratory Results - last 24 hr 01/21/25 16:44: WBC 22.7 H, RBC 5.51, Hgb 15.0, Hct 44.5, MCV 80.8, MCH 27.2, MCHC 33.7, RDW Std Deviation 42.5, RDW Coeff of Martin 14.6, Plt Count 355, MPV 9.8, Neut % (Auto) Not Reportable, D-Dimer Quant (PE/DVT) 0.48, Sodium 132 L, Potassium 4.0, Chloride 96 L, Carbon Dioxide 21.0, Anion Gap 15, BUN 13, C reatinine 1.26 H, Estim Creat Clear Calc 100.83, Est GFR (MDRD) Non-Af 66, BUN/Creatinine Ratio 10.5, Glucose 180 H, Calcium 9.2, Total Bilirubin 1.41 H, AST 29, ALT 29, Alkaline Phosphatase 92, Troponin T High Sens 15, NT pro BNP II 88, Total Protein 8.8 H, Albumin 4.2, Globulin 4.6 H, Albumin/Globulin Ratio 0.9 01/21/25 17:49: Urine Color Flores, Urine Clarity Turbid, Urine pH 5.0, Ur Specific [place] 1.025, Urine Protein 100 H, Urine Glucose (UA) 50 H, Urine Ketones 15 H, Urine Occult Blood 150 H, Urine Nitrite Positive H, Urine Bilirubin 1 H, Urine Urobilinogen 4 H, Ur Leukocyte Esterase 500 H, Urine RBC 0- 5 SEEN, Urine WBC 10-25 SEEN, Ur Squamous Epith Cells 5-10 SEEN, Amorphous Sediment 1+, Urine Bacteria 4+, Hyaline Casts 0-5 SEEN, Fine Granular Casts 0-5 SEEN, Coarse Granular Casts 0-5 SEEN, Urine Mucus 1+ Imaging Radiology Impression Chest X-Ray 01/21/25 16:58 IMPRESSION: Bilateral patchy and reticular airspace opacities may be related to pulmonary edema, versus an infectious/inflammatory process depending on the clinical context. No pleural effusions. Reading Location: [facility] Assessment & Plan Assessment/Plan (1) Shortness of breath: PLAN: Plan Patient is a 59-year-old male who presented to [facility] ED on 01/21/2025 with progressive shortness of breath. 1. Progressive shortness of breath ? Admit under inpatient status to PCU. Pulmonology consulted. CT chest showed diffuse interstitial lung markings compatible with chronic lung disease, with no discrete area of consolidation or pulmonary mass. No prior history of lung disease noted. Satting 92 to 94% on room air at rest. Presentation of progressive shortness of breath with mostly dry cough with occasional sputum production does fit with chronic ILD. Unclear etiology. Will briefly treat with IV antibiotics and IV steroids for now. Appreciate pulmonology recommendations. 2. UTI ? UA on admit with positive nitrites, 500 leukocyte esterase, 4+ bacteria. Only mild UTI symptoms noted by patient. CT abdomen pelvis with no abnormal kidney or bladder findings or any prostatic enlargement noted. Treating with IV ceftriaxone as above, follow-up urine culture. 3. Mild creatinine elevation ? Creatinine 1.26 on admit, baseline 1.0-1.1. Given IV fluid resuscitation on admit, follow-up a.m. BMP. 4. New onset type 2 diabetes mellitus ? Blood glucose 180 on admit. A1c 8.0%. With initiating steroids as above, will start patient on sliding scale insulin with meals for now, adjust as needed. 5. Suspected fatty liver disease ? CT abdomen pelvis showed hepatomegaly with diffuse hepatic steatosis, and total bilirubin mildly elevated at 1.41 with otherwise normal LFTs. No further inpatient workup at this time. 6. Class III obesity ? BMI 43 on admit. Complicates hospital course and care. DVT prophylaxis: Lovenox twice daily CODE STATUS: Full code, verified Expected disposition: Home, TBD Total clinical time spent by myself addressing the patient's medical issues, reviewing all the data, and collaborating with patient's care team: 81 minutes. Charges/Coding Visit Charges Inpatient E&M: 87091 Init Hosp L3
[2025-01-21 19:26] LABS: Immature Granulocytes Count 0.220 X10^3/uL (0.0-0.0)
[2025-01-21 19:27] LABS: Differential Comment SCANNED
[2025-01-21 19:42] LABS: Troponin T High Sens 2 HR 13 ng/L (<=22)
[2025-01-21] MEDS: Azithromycin 500 MG in 0.9% Normal Saline (250mL Bag) 250 ML 250 MG IV (20:11)
--- NOTE | 2025-01-21 20:20 | CT_ITS ---
PROCEDURE: CT CHEST, ABD, PEL W/CONTRAST 01/21/2025 REASON FOR EXAM: ABNORMAL CXR, FLORECITA W/ UTI AND POSSIB PYELO, LFTS UP TECHNIQUE: Chest, abdomen and pelvis CT with intravenous contrast. Coronal and Sagittal reconstruction series were provided. One or more dose reduction techniques were used (e.g., Automated exposure control, adjustment of the mA and/or kV according to patient size, use of iterative reconstruction technique. PATIENT PREPARATION: Per protocol ORAL CONTRAST TYPE: None. AMOUNT: mL CONTRAST: 100 cc of Isovue 370 intravenous contrast. COMPARISON: CT abdomen and pelvis 12/01/2020, chest x-ray 01/21/2025 FINDINGS: CT CHEST: Hardware: None. Lymph nodes: No enlarged mediastinal, hilar, or axillary lymph nodes. Heart and Vasculature: The heart is not enlarged. No pericardial effusion. Atherosclerotic calcifications of the thoracic aorta. Pulmonary arteries are unremarkable. Lungs and Airways: Diffuse interstitial lung markings compatible with chronic lung disease. No discrete area of consolidation or pulmonary mass. Pleura: No effusion. No pneumothorax. Bones: Degenerative changes of the thoracic spine. No acute fractures. CT ABDOMEN/PELVIS: Liver: Enlarged measuring 20.5 cm craniocaudally. Moderate diffuse hepatic steatosis. No obvious hepatic mass. Gallbladder: Unremarkable. No biliary ductal dilatation. Spleen: Normal size. Pancreas: Normal size without evidence of mass surrounding inflammation or ductal dilation. Adrenals: Unremarkable Kidneys: Normal renal sizes. No hydronephrosis. Bladder: Unremarkable. Assessment limited by streak artifact. Reproductive Organs: No pelvic masses. Bowel: Diffuse colonic diverticulosis. Mild fat stranding around the proximal sigmoid colon suggestive of superimposed diverticulitis. No bowel obstruction. Appendix: Normal. Lymph nodes: Unremarkable. Vasculature: Moderate atherosclerotic calcifications of the abdominal aorta and its branches. No aneurysm. Peritoneum / Retroperitoneum: No free fluid or air. Bones: Degenerative changes of the spine. Bilateral hip arthroplasties. No acute fractures. CT/CT Chest, Abd, Pel w/Contrast IMPRESSION: 1. Diffuse chronic interstitial lung disease. No definite focal consolidation. 2. Hepatomegaly and moderate diffuse hepatic steatosis. 3. Diffuse colonic diverticulosis with mild diverticulitis involving the proxim al sigmoid colon. Reading Location: [facility]
--- OUTSIDE RECORDS SUMMARY | 2025-01-21 21:43 | XMS RPT_ITS | CCD ---
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 Underwood Primary Care Provider Ronni BURK, Dr. Mendoza Attending Provider Dr. Agustin Ferris DO Emergency Provider Dr. Robert Garrett DO Admit Provider Dr. Robert Garrett DO Attending Provider Medications Current Medications Medication Drug Class(es) Dates Sig (Normalized) Sig (Original) hydrOXYzine hydrochloride 50 mg oral tablet (1 source) Antihistamine Start: 01-21-2025 take 1 tablet by mouth at bedtime as needed Hydroxyzine Hcl 50 mg tablet Active 50 mg PO AT BEDTIME as needed for itching January 21, 2025 12:00am Completed/Discontinued Medications Medication Drug Class(es) Dates Sig (Normalized) Sig (Original) acetaminophen 325 mg / oxyCODONE hydrochloride 5 mg oral tablet (2 sources) Opioid Agonist Start: 12-01-2020 End: 01-21-2025 Oxycodone-Acetamino phen (Percocet) 5-325 mg tablet Discontinued 1 {tbl} PO Q8H as needed for pain 12 3 0 December 01, 2020 January 21, 2025 4:55pm Diverticulitis ciprofloxacin 500 mg oral tablet (2 sources) Quinolone Antimicrobial Start: 12-01-2020 End: 01-21-2025 take 1 tablet by mouth twice daily Ciprofloxacin Hcl (Cipro) 500 mg tablet Discontinued 500 mg PO TWICE A DAY 14 0 December 01, 2020 12:00am January 21, 2025 4:55pm metroNIDAZOLE 500 mg oral tablet (2 sources) Nitroimidazole Antimicrobial Start: 12-01-2020 End: 01-21-2025 take 1 tablet by mouth every eight hours Metronidazole (Flagyl) 500 mg tablet Discontinued 500 mg PO Q8H 21 7 0 December 01, 2020 12:00am January 21, 2025 4:55pm Problems Problem Classification Problem Date Documented Da te Episodic/Chronic Diverticulosis and diverticulitis (1 source) Diverticulitis; Translations: [Diverticulitis of intestine, part unspecified, without perforation or abscess without bleeding] 01-21-2025 Chronic Residual codes; unclassified (1 source) Localized edema; Translations: [Localized edema] Onset: 06-27-2024 Episodic Results Test Name Value Interpretation Reference Range Facility Absolute lymphocyte countOrd ered By: Agustin Ferris on 01-21-2025 Lymphocytes Auto (Unsp spec) [#/Vol] 2.89 10*3/uL 0.83-4.51 [facility] Absolute neutrophil countOrd ered By: Agustin Ferris on 01-21-2025 Neutrophils (Bld) [#/Vol] 16.6 10*3/uL High 2.0-7.7 [facility] Amorphous sediment detection in urine sediment by light microscopyOrdered By: Agustin Ferris on 01-21-2025 Amorphous sediment LM Ql (Urine sed) 1+ [facility] Anion gap in Serum or Plasma Ordered By: Agustin Ferris on 01-21-2025 Anion gap [Moles/Vol] 15 mmol/L 5-15 [facility] BUN/creatinine ratioOrdered By: Agustin Ferris on 01-21-2025 Urea nitrogen/Creatinine [Mass ratio] 10.5 mg/mg 10-20 [facility] Basophil percentageOrdered B y: Agustin Ferris on 01-21-2025 Basophils/100 WBC (Bld) 0.6 % 0-1 [facility] Bilirubin Test strip Ql (U)O rdered By: Agustin Ferris on 01-21-2025 Bilirubin Ql (U) 1 mg/dL High Negative [facility] Comment on above: COLOR OF URINE MAY A FFECT DIPSTICK RESULTS. Bilirubin, totalOrdered By: Agustin Ferris on 01-21-2025 Bilirubin [Mass/Vol] 1.41 mg/dL High 0.00-1.30 [facility] Blood manual differential co mment interpretation (narrative result)Ordered By: Agustin Ferris on 01-21-2025 Manual differential comment Juan Manuel (Bld) [Interp] SCANNED [facility] Carbon dioxide, total [Moles /volume] in Central venous bloodOrdered By: Agustin Ferris on 01-21-2025 CO2 [Moles/Vol] 21.0 mmol/L 21.0-32.0 [facility] Chloride assayOrdered By: Wilfredo Ferris on 01-21-2025 Chloride [Moles/Vol] 96 mmol/L Low 98-108 [facility] Eosinophil %Ordered By: Marek Ferris on 01-21-2025 Eosinophils/100 WBC (Bld) 0.3 % 0-5 [facility] Erythrocyte distribution wid th ratioOrdered By: Agustin Ferris on 01-21-2025 Erythrocyte distribution width (RBC) [Ratio] 14.6 % 11.6-14.6 [facility] Erythrocyte distribution wid th standard deviationOrdered By: Agustin Bhardwaj on 01-21-2025 Erythrocyte distribution width (RBC) [Ratio] 42.5 fl 35.1-43.9 [facility] Glomerular filtration rate ( GFR) estimation/1.73 sq m using serum, plasma, or whole bOrdered By: Agustin Ferris on 01-21-2025 GFR/1.73 sq M.predicted among non-blacks MDRD (S/P/Bld) [Vol rate/Area] 66 mL/min/{1.73_m2} >60 [facility] Comment on above: mL/min/1.73m2 CKD-EP I Creatinine Equation (2020) Hematocrit Auto (Bld) [Volum e fraction]Ordered By: Agustin Ferris on 01-21-2025 Hematocrit (Bld) [Volume fraction] 44.5 % 40-54 [facility] Hemoglobin measurementOrdere d By: Agustin Ferris on 01-21-2025 Hemoglobin (Bld) [Mass/Vol] 15.0 g/dL 13.0-16.5 [facility] Hyaline casts LM.LPF (Urine sed) [#/Area]Ordered By: Agustin Ferris on 01-21-2025 Hyaline casts (Urine sed) [#/Area] 0 /[LPF] 0-5 [facility] Immature granulocyte percent ageOrdered By: Agustin Ferris on 01-21-2025 Immature granulocytes/100 WBC (Bld) 1.000 % High 0.0-0.9 [facility] Comment on above: IG% - Immature Granu locytes (promyelocytes, myelocytes and metamyelocytes) > 1% indicates that a LEFT SHIFT is Present. Ketones Test strip Ql (U)Ord ered By: Agustin Ferris on 01-21-2025 Ketones Ql (U) 15 mg/dl High Negative [facility] Laboratory - Chemistry and C hemistry - challengeOrdered By: Agustin Ferris on 01-21-2025 AST [Catalytic activity/Vol] 29 U/L <38 [facility] Lymphocyte %Ordered By: Marek Ferris on 01-21-2025 Lymphocytes/100 WBC (Bld) 12.8 % Low 19-41 [facility] MCV (mean corpuscular volume ) determinationOrdered By: Agustin Ferris on 01-21-2025 MCV (RBC) [Entitic vol] 80.8 fL 80-94 [facility] Mean corpuscular hemoglobin (MCH) determinationOrdered By: Agustin Ferris on 01-21-2025 MCH (RBC) [Entitic mass] 27.2 pg 27.0-32.0 [facility] Mean corpuscular hemoglobin concentration (MCHC) determinationOrdered By: Agustin Ferris on 01-21-2025 MCHC (RBC) [Mass/Vol] 33.7 g/dL 32-36 [facility] Mean platelet volume determi nationOrdered By: Agustin Ferris on 01-21-2025 Platelet mean volume (Bld) [Entitic vol] 9.8 fL 6.2-12.0 [facility] Microscopic analysis of urin e for red blood cells (RBC)Ordered By: Agustin Ferris on 01-21-2025 Microscopic analysis of urine for red blood cells (RBC) 0-5 SEEN /hpf 0-5 [facility] Monocyte percentageOrdered B y: Agustin Ferris on 01-21-2025 Monocytes/100 WBC (Bld) 12.1 % High 0-10 [facility] Mucus LM Ql (Urine sed)Order ed By: Agustin Ferris on 01-21-2025 Mucus Ql (Urine sed) 1+ /hpf [facility] Natriuretic peptide.B prohor ayesha N-Terminal [Mass/volume] in Serum or PlasmaOrdered By: Agustin Ferris on 01-21-2025 Natriuretic peptide.B prohormone N-Terminal [Mass/Vol] 88 pg/mL <900 [facility] Comment on above: Heart Failure Unlike ly: < 300 pg/mLHeart Failure Likely< 50 Years: > 450 pg/mL50-75 Years: > 900 pg/mL>75 Years: > 1800 pg/mL Neutrophil percentageOrdered By: Agustin Ferris on 01-21-2025 Neutrophils/100 WBC (Bld) 73.2 % High 47-70 [facility] Nitrite Test strip Ql (U)Ord ered By: Agustin Ferris on 01-21-2025 Nitrite Ql (U) Positive High Negative [facility] Platelet countOrdered By: Wilfredo Ferris on 01-21-2025 Platelets (Bld) [#/Vol] 355 10*3/uL 150-450 [facility] Platelet estimateOrdered By: Agustin Ferris on 01-21-2025 Platelets LM Ql (Bld) ADEQUATE ADEQ [facility] Potassium measurement (mass/ volume)Ordered By: Agustin Ferris on 01-21-2025 Potassium (Unsp spec) [Mass/Vol] 4.0 mmol/L 3.3-5.1 [facility] Protein Test strip Ql (U)Ord ered By: Agustin Ferris on 01-21-2025 Protein Ql (U) 100 mg/dl High Negative [facility] RBC Auto (Bld) [#/Vol]Ordere d By: Agustin Ferris on 01-21-2025 RBC (Bld) [#/Vol] 5.51 10*6/uL 4.6-6.2 [facility] Serum creatinine measurement (mass/volume)Ordered By: Agustin Ferris on 01-21-2025 Creatinine [Mass/Vol] 1.26 mg/dL High 0.70-1.20 [facility] Serum globulin measurementOr dered By: Agustin Ferris on 01-21-2025 Globulin (S) [Mass/Vol] 4.6 g/dL High 2.2-4.2 [facility] Serum glucose measurement (m ass/volume)Ordered By: Agustin Ferris on 01-21-2025 Glucose [Mass/Vol] 180 mg/dL High 70-99 [facility] Serum or plasma alanine otto otransferase (ALT) measurementOrdered By: Agustin Ferris on 01-21-2025 ALT [Catalytic activity/Vol] 29 U/L <47 [facility] Serum or plasma albumin marcelina urement (mass/volume)Ordered By: Agustin Bhardwaj on 01-21-2025 Albumin [Mass/Vol] 4.2 g/dL 3.5-5.0 [facility] Serum or plasma albumin/glob ulin mass ratioOrdered By: Agustin Ferris on 01-21-2025 Albumin/Globulin [Mass ratio] 0.9 {ratio} 0.9-2.4 [facility] Serum or plasma alkaline chao sphatase measurementOrdered By: Agustin Ferris on 01-21-2025 ALP [Catalytic activity/Vol] 92 U/L 40-129 [facility] Serum or plasma calcium marcelina urement (mass/volume)Ordered By: Agustin Bhardwaj on 01-21-2025 Calcium [Mass/Vol] 9.2 mg/dL 7.6-11.0 [facility] Serum or plasma urea nitroge n measurement (mass/volume)Ordered By: Agustin Ferris on 01-21-2025 Urea nitrogen [Mass/Vol] 13 mg/dL 4-19 [facility] Sodium levelOrdered By: Marek Ferris on 01-21-2025 Sodium [Moles/Vol] 132 mmol/L Low 133-145 [facility] Squamous epithelial cells de tection in urine sediment by light microscopyOrdered By: Agustin Ferris on 01-21-2025 Epithelial cells.squamous LM Ql (Urine sed) 5-10 SEEN /hpf 0-5 [facility] Total proteinOrdered By: Romeo Ferris on 01-21-2025 Protein [Mass/Vol] 8.8 g/dL High 5.9-8.4 [facility] Troponin T.cardiac [Mass/vol ume] in Serum or Plasma by High sensitivity methodOrdered By: Agustin Ferris on 01-21-2025 Troponin T.cardiac High sensitivity method [Mass/Vol] 13 ng/L <22 [facility] Troponin T.cardiac High sensitivity method [Mass/Vol] 15 ng/L <22 [facility] Urine clarityOrdered By: Romeo Ferris on 01-21-2025 Clarity (U) Turbid Clear [facility] Urine coarse granular cast d etectionOrdered By: Agustin Ferris on 01-21-2025 Coarse Granular Casts LM Ql (Urine sed) 0-5 SEEN /lpf 0-5 /lpf [facility] Urine color determinationOrd ered By: Agustin Ferris on 01-21-2025 Color (U) Flores Yellow [facility] Urine glucose detectionOrder ed By: Agustin Ferris on 01-21-2025 Glucose Ql (U) 50 mg/dl High Normal [facility] Urine leukocyte esterase det ection by dipstickOrdered By: Agustin Ferris on 01-21-2025 Leukocyte esterase Test strip Ql (U) 500 /ul High Negative [facility] Urine pHOrdered By: Agustin Finley on 01-21-2025 pH (U) 5.0 [pH] 5.0 - 8.0 [facility] Urine sediment bacteria coun t by microscopy (number/high power field)Ordered By: Agustin Ferris on 01-21-2025 Bacteria LM.HPF (Urine sed) [#/Area] 4 /[HPF] None Seen [facility] Urine sediment fine granular cast count by microscopy (number/low power field)Ordered By: Agustin Ferris on 01-21-2025 Fine Granular Casts LM.LPF (Urine sed) [#/Area] 0-5 SEEN /lpf 0-5 [facility] Urine specific gravity measu rementOrdered By: Agustin Ferris on 01-21-2025 Specific gravity (U) [Rel density] 1.025 1.002-1.030 [facility] Urine urobilinogen measureme ntOrdered By: Agustin Ferris on 01-21-2025 Urobilinogen Ql (U) 4 mg/dl High Normal [facility] White blood cell (WBC) count Ordered By: Agustin Ferris on 01-21-2025 WBC (Bld) [#/Vol] 22.7 10*3/uL High 4.4-11.0 [facility] White blood cell countOrdere d By: Agustin Ferris on 01-21-2025 White blood cell count 10-25 SEEN /hpf 0-5 [facility] Amorphous sediment detection in urine sediment by light microscopyOrdered By: Reji Rudolph on 01-20-2025 Amorphous sediment LM Ql (Urine sed) 2+ [facility] Bilirubin Test strip Ql (U)O rdered By: Reji Rudolph on 01-20-2025 Bilirubin Ql (U) Negative Negative [facility] Ketones Test strip Ql (U)Ord ered By: Reji Rudolph on 01-20-2025 Ketones Ql (U) 5 mg/dl High Negative [facility] Microscopic analysis of urin e for red blood cells (RBC)Ordered By: Reji Rudolph on 01-20-2025 Microscopic analysis of urine for red blood cells (RBC) 5-10 SEEN /hpf 0-5 [facility] Mucus LM Ql (Urine sed)Order ed By: Reji Rudolph on 01-20-2025 Mucus Ql (Urine sed) 0 SEEN /hpf [facility] Nitrite Test strip Ql (U)Ord ered By: Reji Rudolph on 01-20-2025 Nitrite Ql (U) Positive High Negative [facility] Protein Test strip Ql (U)Ord ered By: Reji Rudolph on 01-20-2025 Protein Ql (U) 30 mg/dl High Negative [facility] Squamous epithelial cells de tection in urine sediment by light microscopyOrdered By: Reji Rudolph on 01-20-2025 Epithelial cells.squamous LM Ql (Urine sed) 5-10 SEEN /hpf 0-5 [facility] Transitional cells detection in urine sediment by light microscopyOrdered By: Reji Rudolph on 01-20-2025 Transitional cells LM Ql (Urine sed) 0-5 SEEN /hpf 0-5 [facility] Urine clarityOrdered By: Apryl Rudolph on 01-20-2025 Clarity (U) Sl. Cloudy Clear [facility] Urine coarse granular cast d etectionOrdered By: Reji Rudolph on 01-20-2025 Coarse Granular Casts LM Ql (Urine sed) 0-5 SEEN /lpf 0-5 /lpf [facility] Urine color determinationOrd ered By: Reji Rudolph on 01-20-2025 Color (U) Flores Yellow [facility] Urine glucose detectionOrder ed By: Reji Rudolph on 01-20-2025 Glucose Ql (U) 100 mg/dl High Normal [facility] Urine leukocyte esterase det ection by dipstickOrdered By: Reji Rudolph on 01-20-2025 Leukocyte esterase Test strip Ql (U) 500 /ul High Negative [facility] Urine pHOrdered By: Reji stacy on 01-20-2025 pH (U) 5.0 [pH] 5.0 - 8.0 [facility] Urine sediment bacteria coun t by microscopy (number/high power field)Ordered By: Reji Rudolph on 01-20-2025 Bacteria LM.HPF (Urine sed) [#/Area] 3 /[HPF] None Seen [facility] Urine specific gravity measu rementOrdered By: Rejimarcy Rudolph on 01-20-2025 Specific gravity (U) [Rel density] 1.025 1.002-1.030 [facility] Urine urobilinogen measureme ntOrdered By: Rejimarcy Rudolph on 01-20-2025 Urobilinogen Ql (U) 1 mg/dl High Normal [facility] White blood cell countOrdere d By: Rejimarcy Rudolph on 01-20-2025 White blood cell count 25-50 SEEN /hpf 0-5 [facility] BNP,B-Type NATRIURETIC PEPTI Brandi 06-08-2024 Natriuretic peptide B (Bld) [Mass/Vol] 61.7 pg/mL Normal 0-100 [facility] Comment on above: Performed By: #### L [id number], L500.3400, L503.6620, L100.0100 #### [facility] [address] [place], [address] Basic Metabolic Profile (BMP )on 06-08-2024 BUN/CRE 16.5 RATIO Normal 10-20 [facility] Comment on above: Order Comment: Order Date: 06/03/23 Order Info: [id number] - BMP Order Info: [id number] - LIPID Order Info: [id number] - PSA Performed By: #### L [id number], L500.2500, L500.4100 #### [facility] [address] [place], [address] CA,Total 9.4 mg/dL Normal 8.5-10.1 [facility] Comment on above: Order Comment: Order Date: 06/03/23 Order Info: [id number] - BMP Order Info: [id number] - LIPID Order Info: [id number] - PSA Performed By: #### L [id number], L500.2500, L500.4100 #### [facility] [address] [place], [address] Chloride [Moles/Vol] 104 mmol/L Normal 98-107 [facility] Comment on above: Order Comment: Order Date: 06/03/23 Order Info: 666- - BMP Order Info: [id number] - LIPID Order Info: [id number] - PSA Performed By: #### L [id number], L500.2500, L500.4100 #### [facility] [address] [place], [address] CO2 [Moles/Vol] 27.0 mmol/L Normal 21.0-32.0 [facility] Comment on above: Order Comment: Order Date: 06/03/23 Order Info: [id number] - BMP Order Info: [id number] - LIPID Order Info: [id number] - PSA Performed By: #### L [id number], L500.2500, L500.4100 #### [facility] [address] [place], [address] Creatinine [Mass/Vol] 1.09 mg/dL Normal 0.70-1.30 [facility] Comment on above: Order Comment: Order Date: 06/03/23 Order Info: [id number] - BMP Order Info: [id number] - LIPID Order Info: [id number] - PSA Result Comment: The validity of the calculated GFR GFRAA in patients over 70 years has not been determined. Clinical correlation is essential. Performed By: #### L [id number], L500.2500, L500.4100 #### [facility] [address] [place], [address] EST GFR - AA 89 mL/min Normal >60 [facility] Comment on above: Order Comment: Order Date: 06/03/23 Order Info: [id number] - BMP Order Info: [id number] - LIPID Order Info: [id number] - PSA Result Comment: Afri can Eritrean GFR Calc Performed By: #### L [id number], L500.2500, L500.4100 #### [facility] [address] [place], [address] GAP 6 Normal 5-15 [facility] Comment on above: Order Comment: Order Date: 06/03/23 Order Info: [id number] - BMP Order Info: - LIPID Order Info: [id number] - PSA Performed By: #### L [id number], L500.2500, L500.4100 #### [facility] [address] [place], [address] GFR/1.73 sq M.predicted among non-blacks MDRD (S/P/Bld) [Vol rate/Area] 74 mL/min/{1.73_m2} Normal >60 [facility] Comment on above: Order Comment: Order Date: 06/03/23 Order Info: [id number] - BMP Order Info: - LIPID Order Info: [id number] - PSA Result Comment: Non- GFR Calc Performed By: #### L [id number], L500.2500, L500.4100 #### [facility] [address] [place], [address] Glucose [Mass/Vol] 115 mg/dL High 74-106 [facility] Comment on above: Order Comment: Order Date: 06/03/23 Order Info: [id number] - BMP Order Info: - LIPID Order Info: [id number] - PSA Result Comment: Fast ing Glucose result from 100 to 125 mg/dL suggests IMPAIRED HOMEOSTASIS per A.D.A. criteria. Performed By: #### L [id number], L500.2500, L500.4100 #### [facility] [address] [place], [address] Potassium [Moles/Vol] 4.6 mmol/L Normal 3.5-5.1 [facility] Comment on above: Order Comment: Order Date: 06/03/23 Order Info: [id number] - BMP Order Info: - LIPID Order Info: [id number] - PSA Performed By: #### L [id number], L500.2500, L500.4100 #### [facility] [address] [place], [address] Sodium [Moles/Vol] 137 mmol/L Normal 136-145 [facility] Comment on above: Order Comment: Order Date: 06/03/23 Order Info: [id number] - BMP Order Info: [id number] - LIPID Order Info: [id number] - PSA Performed By: #### L [id number], L500.2500, L500.4100 #### [facility] [address] [place], [address] Urea nitrogen [Mass/Vol] 18 mg/dL Normal 7-18 [facility] Comment on above: Order Comment: Order Date: 06/03/23 Order Info: [id number] - BMP Order Info: [id number] - LIPID Order Info: [id number] - PSA Performed By: #### L [id number], L500.2500, L500.4100 #### [facility] [address] [place], [address] CBC W/Diff, Automatedon 05-14 Absolute Lymph 2.79 X10 3/uL Normal 0.83-4.51 [facility] Comment on above: Performed By: #### L [id number], L500.3400, L503.6620, L100.0100 #### [facility] [address] [place], [address] Absolute Neut 6.3 X10 3/uL Normal 2.0-7.7 [facility] Comment on above: Performed By: #### L [id number], L500.3400, L503.6620, L100.0100 #### [facility] [address] [place], [address] Basophils/100 WBC (Bld) 0.9 % Normal 0-1 [facility] Comment on above: Performed By: #### L [id number], L500.3400, L503.6620, L100.0100 #### [facility] [address] [place], [address] Eosinophils/100 WBC (Bld) 4.0 % Normal 0-5 [facility] Comment on above: Performed By: #### L [id number], L500.3400, L503.6620, L100.0100 #### [facility] [address] [place], [address] Erythrocyte distribution width (RBC) [Ratio] 14.5 % Normal 11.6-14.6 [facility] Comment on above: Performed By: #### L [id number], L500.3400, L503.6620, L100.0100 #### [facility] [address] [place], [address] Hematocrit (Bld) [Volume fraction] 45.0 % Normal 40-54 [facility] Comment on above: Performed By: #### L [id number], L500.3400, L503.6620, L100.0100 #### [facility] [address] [place], [address] Hemoglobin (Bld) [Mass/Vol] 14.3 g/dL Normal 13.0-16.5 [facility] Comment on above: Performed By: #### L [id number], L500.3400, L503.6620, L100.0100 #### [facility] [address] [place], [address] IG% 0.500 Normal 0.0-0.9 [facility] Comment on above: Result Comment: IG% - Immature Granulocytes (promyelocytes, myelocytes and metamyelocytes) > 1% indicates that a LEFT SHIFT is Present. Performed By: #### L [id number], L500.3400, L503.6620, L100.0100 #### [facility] [address] [place], [address] Lymphocytes/100 WBC (Bld) 25.4 % Normal 19-41 [facility] Comment on above: Performed By: #### L [id number], L500.3400, L503.6620, L100.0100 #### [facility] [address] [place], [address] MCH (RBC) [Entitic mass] 26.8 pg Low 27.0-32.0 [facility] Comment on above: Performed By: #### L [id number], L500.3400, L503.6620, L100.0100 #### [facility] [address] [place], [address] MCHC (RBC) [Mass/Vol] 31.8 g/dL Low 32-36 [facility] Comment on above: Performed By: #### L [id number], L500.3400, L503.6620, L100.0100 #### [facility] [address] [place], [address] MCV (RBC) [Entitic vol] 84.4 fL Normal 80-94 [facility] Comment on above: Performed By: #### L [id number], L500.3400, L503.6620, L100.0100 #### [facility] [address] [place], [address] Monocytes/100 WBC (Bld) 11.6 % High 0-10 [facility] Comment on above: Performed By: #### L [id number], L500.3400, L503.6620, L100.0100 #### [facility] [address] [place], [address] Neutrophils/100 WBC (Bld) 57.6 % Normal 47-70 [facility] Comment on above: Performed By: #### L [id number], L500.3400, L503.6620, L100.0100 #### [facility] [address] [place], [address] Nucleated RBC (Bld) [#/Vol] 0 10*3/uL Normal 0-5 [facility] Comment on above: Performed By: #### L [id number], L500.3400, L503.6620, L100.0100 #### [facility] [address] [place], [address] Platelet mean volume (Bld) [Entitic vol] 10.3 fL Normal 6.2-12.0 [facility] Comment on above: Performed By: #### L [id number], L500.3400, L503.6620, L100.0100 #### [facility] [address] [place], [address] Platelets (Bld) [#/Vol] 337 10*3/uL Normal 150-450 [facility] Comment on above: Performed By: #### L [id number], L500.3400, L503.6620, L100.0100 #### [facility] [address] [place], [address] RBC (Bld) [#/Vol] 5.33 10*6/uL Normal 4.6-6.2 [facility] Comment on above: Performed By: #### L [id number], L500.3400, L503.6620, L100.0100 #### [facility] [address] [place], [address] RDW SD 43.9 fl Normal 35.1-43.9 [facility] Comment on above: Performed By: #### L [id number], L500.3400, L503.6620, L100.0100 #### [facility] [address] [place], [address] WBC (Bld) [#/Vol] 11.0 10*3/uL Normal 4.4-11.0 [facility] Comment on above: Performed By: #### L 501.9520, L500.3400, L503.6620, L100.0100 #### [facility] [address] [place], [address] Lipid Profileon 06-08-2024 Cholesterol [Mass/Vol] 171 mg/dL Normal 200 [facility] Comment on above: Order Comment: Order Date: 06/03/23 Order Info: 666-05 - BMP Order Info: [id number] - LIPID Order Info: [id number] - PSA Result Comment: <200 mg/dL Desirable 200-240 mg/dL Borderline >240 mg/dL High Risk Performed By: #### L 501.9910, L500.2500, L500.4100 #### [facility] [address] [place], [address] Cholesterol in HDL [Mass/Vol] 47 mg/dL Normal [facility] Comment on above: Order Comment: Order Date: 06/03/23 Order Info: 666-05 - BMP Order Info: - LIPID Order Info: [id number] - PSA Result Comment: The drugs N-Acetylcysteine and Metamizole may falsely depress this assay. Reference Range HDL <40 mg/dL Low HDL Cholesterol HDL >or= 60 mg/dL High HDL Cholesterol Performed By: #### L 501.9910, L500.2500, L500.4100 #### [facility] [address] [place], [address] Cholesterol in LDL [Mass/Vol] 105 mg/dL Normal 0-130 [facility] Comment on above: Order Comment: Order Date: 06/03/23 Order Info: 06 - BMP Order Info: [id number] - LIPID Order Info: [id number] - PSA Performed By: #### L 501.9910, L500.2500, L500.4100 #### [facility] [address] [place], [address] Cholesterol in VLDL [Mass/Vol] 19 mg/dL Normal 5-40 [facility] Comment on above: Order Comment: Order Date: 06/03/23 Order Info: 666-05 - BMP Order Info: [id number] - LIPID Order Info: [id number] - PSA Performed By: #### L 501.9910, L500.2500, L500.4100 #### [facility] [address] [place], [address] Triglyceride [Mass/Vol] 94 mg/dL Normal [facility] Comment on above: Order Comment: Order Date: 06/03/23 Order Info: [id number] - BMP Order Info: [id number] - LIPID Order Info: [id number] - PSA Result Comment: The drugs N-Acetylcysteine and Metamizole may falsely depress this assay. Serum Triglycerides Reference Interval Normal <150 mg/dL Borderline high 150 - 199 mg/dL High 200 - 499 mg/dL Very High > or = 500 mg/dL Performed By: #### L 501.9910, L500.2500, L500.4100 #### [facility] [address] [place], [address] Liver Profileon 06-08-2024 Albumin [Mass/Vol] 3.5 g/dL Normal 3.2-5.0 [facility] Comment on above: Performed By: #### L 501.9520, L500.3400, L503.6620, L100.0100 #### [facility] [address] [place], [address] ALK P 62 U/L Normal 45-117 [facility] Comment on above: Performed By: #### L 501.9520, L500.3400, L503.6620, L100.0100 #### [facility] [address] [place], [address] ALT [Catalytic activity/Vol] 28 U/L Normal 16-61 [facility] Comment on above: Performed By: #### L 501.9520, L500.3400, L503.6620, L100.0100 #### [facility] [address] [place], [address] AST [Catalytic activity/Vol] 23 U/L Normal 15-37 [facility] Comment on above: Performed By: #### L 501.9520, L500.3400, L503.6620, L100.0100 #### [facility] [address] [place], [address] Bilirubin [Mass/Vol] 0.50 mg/dL Normal 0.20-1.00 [facility] Comment on above: Result Comment: For patients on eltrombopag therapy, use of Dimension [place] TBIL is not recommended. Performed By: #### L 501.9520, L500.3400, L503.6620, L100.0100 #### [facility] [address] [place], [address] Bilirubin.direct [Mass/Vol] 0.13 mg/dL Normal 0.00-0.30 [facility] Comment on above: Performed By: #### L 501.9520, L500.3400, L503.6620, L100.0100 #### [facility] [address] [place], [address] Globulin (S) [Mass/Vol] 4.6 g/dL High 2.2-4.2 [facility] Comment on above: Performed By: #### L 501.9520, L500.3400, L503.6620, L100.0100 #### [facility] [address] [place], [address] T PROT 8.1 g/dL Normal 6.4-8.2 [facility] Comment on above: Performed By: #### L 501.9520, L500.3400, L503.6620, L100.0100 #### [facility] [address] [place], [address] PSA,Total - Annual Screenon 06-08-2024 PSA,TOT SCREEN 0.30 ng/mL Normal 0.00-4.00 [facility] Comment on above: Order Comment: Order Date: 06/03/23 Order Info: [id number] - BMP Order Info: [id number] - LIPID Order Info: [id number] - PSA Result Comment: This test was performed using the TPSA assay method for the Polantis chemistry system. Values obtained with different assay methods cannot be used interchangably. When changing PSA assays in the course of monitoring a patient, additional sequential testing should be carried out to confirm baseline values. Performed By: #### L 501.9910, L500.2500, L500.4100 #### [facility] [address] [facility] [place], [address] Thyroid Stim Hormone (TSH)on 06-08-2024 TSH 1.450 uIU/mL Normal 0.358-3.740 [facility] Comment on above: Performed By: #### L 501.9520, L500.3400, L503.6620, L100.0100 #### [facility] [address] [place], [address] Basic Metabolic Panlon 02-20 Anion gap [Moles/Vol] 11 mmol/L Normal 9-18 [facility] Comment on above: Performed By: #### T SCR30 #### [place] [address] Calcium [Mass/Vol] 8.5 mg/dL Normal 8.5-10.2 [facility] Comment on above: Performed By: #### T SCR30 #### [place] [address] Chloride [Moles/Vol] 102 mmol/L Normal 97-105 [facility] Comment on above: Performed By: #### T SCR30 #### [place] [address] CO2 [Moles/Vol] 26 mmol/L Normal 22-30 [facility] Comment on above: Performed By: #### T SCR30 #### [place] [address] Creatinine [Mass/Vol] 0.95 mg/dL Normal 0.73-1.22 [facility] Comment on above: Performed By: #### T SCR30 #### [place] [address] eGFR- Amer. >60 Normal >60 [facility] Comment on above: Performed By: #### T SCR30 #### [place] [address] GFR/1.73 sq M predicted among non-blacks MDRD (S/P/Bld) [Vol rate/Area] mL/min/{1.73_m2} Normal >60 [facility] Comment on above: Result Comment: eGFR (Estimated GFR) Units of measure: mL/min/1.73 meters squared eGFR is derived from the reexpressed MDRD Study equation using the following parameters: serum creatinine, age, gender and race. The creatinine assay has been calibrated to be traceable to IDMS. An eGFR <60 mL/min/1.73m2 for >3 months is consistent with chronic kidney disease. Refer to KDOQI guidelines for clinical interpretation. In patients with unstable renal function, e.g. those with acute kidney injury, the eGFR may not accurately reflect actual GFR. Performed By: #### T SCR30 #### [place] [address] Glucose [Mass/Vol] 128 mg/dL High 74-99 [facility] Comment on above: Performed By: #### T SCR30 #### [place] [address] Potassium [Moles/Vol] 4.4 mmol/L Normal 3.7-5.1 [facility] Comment on above: Performed By: #### T SCR30 #### [place] [address] Sodium [Moles/Vol] 139 mmol/L Normal 136-144 [facility] Comment on above: Performed By: #### T SCR30 #### [place] [address] Urea nitrogen [Mass/Vol] 22 mg/dL Normal 02-03 [facility] Comment on above: Performed By: #### T SCR30 #### [facility] [address] [place] [id number] CASE MANAGEMon 02-20-2019 CASE MANAGEM HNO ID: [id number] Author: Sarah Broussard (Rn) RENA Navarrete Service: Case Management Author Type: Registered Nurse Type: Care Mgt Progress Note Filed: 02/20/2019 11:08 AM Note Text: MULTIDISCIPLINARY ROUNDS SERVICE DATE: 02/20/2019 ADMISSION DATE: 02/19/2019 SERVICE TIME: 11:07 AM ANTICIPATED D/C DATE: 02/20/2019 Problem List: ACTIVE PROBLEM LIST Morbid Obesity (Hcc) Itching Primary Osteoarthritis of Right Hip Obesity, Class III, BMI >= 40 Arthritis Attendees Present at Rounds: Online Program Coordinator Nurse Self Propelled Dredge Operator/Department Clinician Nurse Self Propelled Dredge Operator Patient: Cherry [facility] Physical Therapy Staff Nurse LOGISTICS VICE PRESIDENT Needs Discussed on Rounds: Discharge Needs Anticipated Discharge Disposition: Home with Home Health Care Last Vitals: BP 135/75 Pulse 71 Temp (Src) 98.1 (Oral) Resp 18 Ht 6' 2 (1.88m) Wt 320 lb (145.2kg) SpO2 99% BMI 41.07 kg/(m2). O2 Therapy: Room Air Patient had right hip replacement yesterday. Plan is for patient to discharge home with home PT and OT. Nursing: Risk for Infection Intervention(s) Plan: Assess Vital Signs;Monitor Labs and Cultures;Maintain Hand Hygiene Risk for Infection Goals/Outcomes: Patient Without Signs/Symptoms of Infections Risk For Infection Goal Target Achievement Date: 02/22/19 Knowledge Deficit Intervention(s) Plan: Encourage Verbalization of Questions and Concerns Knowledge Deficit Goals/Outcomes: Participate in Learning Process Knowledge Deficit Goal Target Achievement Date: 02/22/19 Mobility Intervention(s) Plan: Advance Mobility Mobility Patient/Family Goals: Demonstrates ability to complete transfers with least level of assist. Mobility Goal Target Achievement Date: 02/22/19 Pain Intervention(s) Plan: Pain Assessment, Management, Reassessment Per Scoring Tool Pain Goals/Outcomes: Decrease in Pain Level per Scoring Tool Pain Goal Target Achievement Date: 02/22/19 Safety Intervention(s) Plan: Maintain a Safe Environment Safety Goals/Outcomes: Maintain Patient Safety Safety Goal Target Achievement Date: 10/13/19Skin Intervention(s) Plan: Assess and Document Skin Condition per Protocol Skin Goals/Outcomes: Patient's Skin Integrity Maintained or Improved Skin Goal Target Achievement Date: 02/22/19 DOCUMENTED BY: Sarah Navarrete RN PATIENT NAME: Cherry Sauceda DATE: February 20, 2019 TIME: 11:07 AM CSN: [id number] [facility] CASE MANAGEM HNO ID: [id number] Author: Cheyanne (Rn) RENA Azar Service: Care Management Author Type: Registered Nurse Type: Care Mgt Progress Note Filed: 02/20/2019 9:00 AM Note Text: CARE MANAGEMENT DISCHARGE NOTE SERVICE DATE: 02/20/2019 SERVICE TIME: 8:55 am LOS: 1 day Admission Date: 02/19/2019 DISCHARGE ARRANGEMENT (list agency and phone number) Home Care - PT and OT Provider: Offerm[facility] CAREGIVER ASSESSMENT: Caregiver is ready, willing and able to meet the patient's needs as recommended by the inter-professional team? Yes Patient's transition needs and plan for meeting these needs: home care Does the patient have an acute stroke diagnosis, or has the patient had a stroke during this admission? No HANDOFF COMMUNICATION: see summary of care TRANSPORTATION ARRANGEMENTS: Car with family ADDITIONAL CONTACT RESOURCES: Sunday March 24, 2019 ?2:45 PM EST Post Op with [facility] ([facility] [id number] [facility] [address] Discharge Information Row Name Admission (Current) from 02/19/[address] [facility] Agency [facility] Needs Prior to Discharge: Ready for Discharge SIGNATURE: Cheyanne Azar RN PATIENT NAME: Cherry Sauceda DATE: February 20, 2019 TIME: 8:55 AM PAGER/CONTACT #: [phone] Normal [facility] CBCon 02-20-2019 Absolute nRBC <0.01 Normal <0.01 [facility] Comment on above: Performed By: #### T SCR30 #### [facility] [address] [place] [address] Erythrocyte distribution width (RBC) [Ratio] 15.1 % High 11.5-15.0 [facility] Comment on above: Performed By: #### T SCR30 #### [place] [address] Hematocrit (Bld) [Volume fraction] 39.3 % Normal 39.0-51.0 [facility] Comment on above: Performed By: #### T SCR30 #### [place] [address] Hemoglobin (Bld) [Mass/Vol] 12.2 g/dL Low 13.0-17.0 [facility] Comment on above: Performed By: #### T SCR30 #### [place] [address] MCH (RBC) [Entitic mass] 27.5 pG Normal 26.0-34.0 [facility] Comment on above: Performed By: #### T SCR30 #### [place] [address] MCHC (RBC) [Mass/Vol] 31.0 g/dL Normal 30.5-36.0 [facility] Comment on above: Performed By: #### T SCR30 #### [place] [address] MCV (RBC) [Entitic vol] 88.5 fL Normal 80.0-100.0 L [facility] Comment on above: Performed By: #### T SCR30 #### [place] [address] Platelet mean volume (Bld) [Entitic vol] 10.7 fL Normal 9.0-12.7 [facility] Comment on above: Performed By: #### T SCR30 #### [place] [address] Platelets (Bld) [#/Vol] 258 10*3/uL Normal 150-400 [facility] Comment on above: Performed By: #### T SCR30 #### [place] [address] RBC (Bld) [#/Vol] 4.44 10*6/uL Normal 4.20-6.00 [facility] Comment on above: Performed By: #### T SCR30 #### [place] [address] WBC (Bld) [#/Vol] 9.84 10*3/uL Normal 3.70-11.00 [facility] Comment on above: Performed By: #### T SCR30 #### [place] [address] NURSING PROGon 02-20-2019 NURSING PROG HNO ID: [id number] Author: Katelyn Mueller RN (Acn) Service: ? Author Type: Advance Clinical Nurse Type: Nursing Progress Note Filed: 02/20/2019 3:29 PM Note Text: Nursing Progress Note Patient Name: Cherry Sauceda Patient Location: [address]/[facility] - Daily Note: Patient and attended discharge instruction class for total joints ,where discharge instructions were reviewed. Education/Teaching points reviewed: Wound care for Silverlon/Mepilex AG - any drainage upon removal notify surgeon Showering Nutrition Use of ice, no heat No pillow under the knee Wearing protocol for anais hose/panda wraps Swelling (abnormal vs. Normal) Exercises , positioning restrictions for total hips Level of activity patient should have daily to decrease post op complications Incentive spirometer use for home q1-2hrs while awake x1 week S/S of wound infection Fever greater than 101 and interventions S/S of DVT/PE and interventions Home physical therapy F/U care No submersion of knee or hip in tub or pool for 8-12 weeks Made aware they can activate metal detectors No driving while on narcotics and not until cleared by surgeon Any questions or concerns after D/C told to call surgeon's office If after hours, told to contact orthopedic resident distribution engineering technologist If any SOB/chest pain call 911 Antibiotic and DVT prophylaxis Medication handouts outlining the most common side effects for the following classifications of drugs were reviewed by the pharmacist: Bowel management/constipati on Opiod therapy/pain management Anti inflammatory/pain and swelling Tylenol/analgesic Anticoagulants/DVT prophylaxis Patient validated understanding of the above instructions. This note was completed by: Katelyn Mueller RN [facility] PROGRESSon 02-20-2019 PROGRESS HNO ID: [id number] Author: Sarita Infante Service: Hospital Medicine Author Type: Physician Department Clinician Type: Progress Notes Filed: 02/20/2019 12:00 PM Note Text: Inpatient Progress Note Service Date: February 20, 2019 Patient chart reviewed in detail including latest VS, labs, and last 24 hour progress notes Case discussed in interdisciplinary team rounds Case discussed with bedside nurse Impression/Plan Active Problems: Obesity, Class III, BMI >= 40 POA: Unknown Assessment AND Plan: Advised to discuss with PCP as outpatient in regards to lifestyle modification. Arthritis POA: Yes Assessment AND Plan: POD #1 Left THR, POD #1, working with therapy, plan is for discharge home with C later today if meets goals Interval HPI: Patient seen and examined. No issues overnight, no chest pain, no SOB, no nausea, no vomiting, tolerating diet. BP 144/81 Pulse 80 Temp 36.7 ?C (98.1 ?F) (Oral) Resp 18 Ht 188 cm (6' 2) Wt (!) 145.2 kg (320 lb) SpO2 97% BMI 41.09 kg/m? Physical Exam Constitutional: He is oriented to person, place, and time. No distress. HENT: Head: Normocephalic. Cardiovascular: Normal rate and regular rhythm. Pulmonary/Chest: Effort normal and breath sounds normal. Abdominal: Soft. Bowel sounds are normal. Neurological: He is alert and oriented to person, place, and time. Skin: Dressing dry and intact Total floor time dedicated to this specific patient: 20 minutes. Greater than 50% of total time was spent in coordination of care and as detailed above. SIGNATURE: Sarita Infante PA-C PATIENT NAME: Cherry Sauceda DATE: February 20, 2019 TIME: 11:59 AM PAGER/CONTACT #: [facility] PROGRESS HNO ID: [id number] Author: Sy Mantilla Service: Orthopaedic Surgery Author Type: Resident Type: Progress Notes Filed: 02/20/2019 8:17 AM Note Text: ORTHOPAEDIC POSTOP PROGRESS NOTE Subjective Patient states that they are comfortable Well Controlled hip pain. Mild incisional pain. No n/v. Ready to leave Objective VITAL SIGNS: BP 135/75 Pulse 71 Temp 36.7 ?C (98.1 ?F) (Oral) Resp 18 Ht 188 cm (6' 2) Wt (!) 145.2 kg (320 lb) SpO2 99% BMI 41.09 kg/m? INTAKE AND OUTPUT: Intake/Output Summary (Last 24 hours) at 02/20/2019 0817 Last data filed at 02/20/2019 0500 Gross per 24 hour Intake 3362.5 ml Output 450 ml Net 2912.5 ml PHYSICAL EXAMINATION: Left Lower Extremity: Dorsalis pedis pulses palpable. Posterior tibial pulses palpable. Dorsi flexion 5/5. Plantar flexion 5/5. Extensor hallucis extension: 5/5. Sensory intact to light touch L1-S1. Dressing clean, dry and intact. Surgical site no drainage and Silverlon intact. Problem Review and Assessment: Patient monitored, no new events overnight. LABS: Recent Labs 02/20/19 0403 HB 12.2* HCT 39.3 DATA: Diagnostic tests reviewed for today's visit: Most recent labs and imaging results. Assessment/Plan S/P Procedure(s) (LRB): ARTHROPLASTY REPLACE JOINT TOTAL HIP (Left) on 02/19/2019 POSTOP PLAN: Physical Therapy evaluation - WBAT, posterior precautions DVT prophylaxis: Graduated compression stockings (GCS) and ASA Pain control - wean to orals Antibiotics: Discontinuing Antibiotics after 24 hours Internal Medicine for Comanagement Monitor UOP Case Management for discharge planning - home today if meeting PT goals and stable per medicine. ACTIVE PROBLEM LIST Morbid Obesity (Hcc) Itching Primary Osteoarthritis of Right Hip Obesity, Class III, BMI >= 40 Arthritis Medication and Non-Pharmacologic VTE Prophylaxis/Anticoagu lants Anticoagulant AND Antiplatelet Medications (From admission, onward) Start Dose Route Frequency Ordered Stop 02/19/19 1330 aspirin, enteric coated 81 mg tab(s) (Surgical Risk Categories ) 81 mg ORAL 2 TIMES DAILY 02/19/19 1311 -- 02/18/19 0000 aspirin, enteric coated (ASPIR-LOW) 81 mg EC tablet 81 mg ORAL 2 TIMES DAILY 02/18/19 1152 03/18/19 2359 02/19/19 1315 activity - mobilize patient (ri,la) 02/19/19 1245 graduated compression stockings ([place]) VTE Prophylaxis: VTE prophylaxis appropriate POST OPERATIVE COMPLICATIONS: Complicated by: uneventful/none Sy Mantilla MD Orthopaedic Surgery, PGY-4 Pager: [phone] After 6p and weekends page [phone] [facility] THERAPY NTon 02-20-2019 THERAPY NT HNO ID: [id number] Author: Ashly (Pt) Asif Service: Physical Therapy Author Type: Physical Therapist Type: Therapy (PT/OT/Speech/Resp) Filed: 02/20/2019 9:52 AM Note Text: Physical Therapy Evaluation SERVICE DATE: 02/20/2019 SERVICE TIME: 918 to 941 ROOM: [place] [address] Recommended Discharge Disposition: Home PT Anticipated Discharge Needs: Physical Assist at Home Physical Assist at Home for: Cleaning;Laundry;Meal s;Stairs;Shopping;Tra nsportation Recommended Discharge Equipment: No equipment needs anticipated PT Recommendations to Nursing: Ambulate with device;To bathroom;In halls;Transfer to/from chair;OOB for Meals;With assist of 1 person Device: Wheeled Walker PT 6 Clicks Score: 22 Precautions/Activity Restrictions: Total Hip Replacement;Weight Bearing Restrictions Extremity With Weight Bearing Restricted: Left Lower Extremity Left Lower Extremity Weight Bearing Status: WBAT Total Hip Replacement Precautions: Posterior ASSESSMENT : Patient presents with pain, reduced ROM, strength and functional activity tolerance s/p L CLOVIS. Patient's impairments are limiting his safety and independence with transfers, ambulation and stair negotiation. Patient will benefit from home PT at discharge for continued education, exercise progression and to facilitate return to independence with mobility. Patient Disposition at Start of Session: OOB in Chair;Call Enamorado in Reach;Family Present Patient Disposition at End of Session: Supine in Bed;Call Enamorado in Reach;Family Present Tolerated Full Session Physical Therapy Problem List: Safety Deficits;Decreased Strength;Decreased Range Of Motion;Functional Mobility Impairment Patient /Caregiver Goals: Go Home Goals for Plan of Care: Able to perform HEP with: Set Up Ambulate with: Modified Independent Distance: >300' Device: Wheeled Walker Ambulate up and down steps with: Supervision Number of steps: 3 Device: Cane;Rail Rehab Potential: Good PLAN: Treatment Frequency (times per week): 7 Current admission Treatment Interventions: Education;Joint Mobility;Strengthenin g;Functional Mobility Training Plan of Care developed with: Patient;Family TREATMENT INTERVENTIONS: Therapy Diagnosis: Reduced mobility-other;Unstea diness on feet Interventions Provided: Evaluation;Therapeuti c Exercise (86624) $ Evaluation-Low (66452) Billed Units: 1 unit Therapeutic Exercise (89821) Treatment Minutes: 8 1 unit Skilled Intervention(s): Instruction in therapeutic exercise per THR protocol. Patient performed all supine and seated exercises 1 x 10 Verbal and tactile cuing provided for correct exercise technique, proper set up and frequency of exercise at discharge Total Timed Code Treatment Minutes: 8 Total Treatment Time (minutes): 23 SUBJECTIVE: Current Hospital Course: Chart reviewed; patient admitted with OA L hip, s/p L THR Reason for Physical Therapy Consult : s/p L CLOVIS Relevant Past Medical History: R CLOVIS Patient Report: I was still following the precautions and not bending over or twisting. Home Environment Patient Lives With: Spouse Assistance Available: 24 Hour Entry To Home: Stairs;Without Rail Number Of Stairs Into Home: 3 Number Of Stairs To Bed/Bath: 0 Tub/Shower Type: tub shower Equipment Owned: Cane;Commode-Raised;W heeled Walker;Standard Walker;Plumbing And Heating Contractor;Elevat ed Toilet Seat Prior Functional Level: Within Functional Limits Prior Functional Level Comments: ambulating with cane or walker prior to surgery OBJECTIVE: CURRENT FUNCTIONAL STATUS: Current Functional Mobility Assist Level Additional Information Rolling Supine to Sit Independent Sit to Supine Independent Scooting Independent Sit to Stand Modified Independent Stand to Sit Modified Independent Bed to Chair Toilet/Commode Gait Modified Independent Gait Device: Wheeled Walker Gait Distance (feet): >150' Stairs Stand By Assistance Stairs Device: Cane;Rail Number of Stairs: 3 Curb Step Car Transfer Gait Deviations Right Lower Extremity: Step length decreased Gait Deviations Left Lower Extremity: Weight bearing decreased;Stance time decreased General Gait Deviations: Meseret decreased;Flexed trunk posture -M: 7: Walk 25 feet or more Please see discipline specific clinical documentation flowsheet for complete details for this therapy evaluation/treatment. SIGNATURE: Ashly Gold PT PATIENT NAME: Cherry Sauceda DATE: February 20, 2019 TIME: 9:49 AM [facility] THERAPY NT HNO ID: [id number] Author: Deidre (Ot) ZANDRA Conn Service: Occupational Therapy Author Type: Occupational Therapist Type: Therapy (PT/OT/Speech/Resp) Filed: 02/20/2019 9:48 AM Note Text: Occupational Therapy Evaluation SERVICE DATE: 02/20/2019 SERVICE TIME: 899 to 916 ROOM: [place] [place] [id number] Recommended Discharge Disposition: Home Anticipated Discharge Needs: Physical Assist at Home Physical Assist at Home for: Cleaning;Laundry;Self Care;Shopping;Transpo rtation OT Recommendations to Nursing: To Bathroom for ADL?s /and or Toileting Equipment: Wheeled Walker OT 6 Clicks Score: 22 Precautions/Activity Restrictions: Total Hip Replacement;Weight Bearing Restrictions Extremity With Weight Bearing Restricted: Left Lower Extremity Left Lower Extremity Weight Bearing Status: WBAT Total Hip Replacement Precautions: Posterior ASSESSMENT: Patient is safe to discharge from acute care setting to home and care of family supports via car from OT perspective. Patient is s/p LTHA and demonstrates impaired self care and functional mobility. Patient requires skilled OT intervention to maximize independence/safety with ADLs, IADLs, functional mobility, and to educate on precautions and adaptive techniques/equipment . Patient Disposition at Start of Session: Supine in Bed;Call Enamorado in Reach;Family Present Patient Disposition at End of Session: OOB in Chair;Family Present;Call Enamorado in Reach Tolerated Full Session Occupational Therapy Problem List: Safety Deficits;Impaired Self Care;Functional Mobility Impairment Patient /Caregiver Goals: Go Home Goals for Plan of Care: Lower Body Bathing with: Modified Independent Lower Body Dressing with: Modified Independent Demonstrate Competence With Education with: Independent PLAN: Treatment Frequency (times per week): 1 Current admission Treatment Interventions: Education;Self Care / Home Management;Functional Mobility Training Plan of Care developed with: Patient TREATMENT INTERVENTIONS: Interventions Provided: Evaluation $ Evaluation-Low (16069) Billed Units: 1 unit Total Treatment Time (minutes): 17 SUBJECTIVE: Current Hospital Course: Chart reviewed; see below Reason for Occupational Therapy Consult: s/p LTHR Relevant Past Medical History: R CLOVIS Patient Report: Pt reports he is ready for d/c home today. Home Environment Patient Lives With: Spouse Assistance Available: 24 Hour Entry To Home: Stairs;Without Rail Number Of Stairs Into Home: 3 Number Of Stairs To Bed/Bath: 0 Tub/Shower Type: tub shower Equipment Owned: Cane;Commode-Raised;W heeled Walker;Standard Walker;Plumbing And Heating Contractor;Elevat ed Toilet Seat Prior Functional Level: Within Functional Limits Prior Functional Level Comments: ambulating with cane or walker prior to surgery OBJECTIVE: CURRENT FUNCTIONAL STATUS: Current Activities of Daily Living Assist Level Feeding Independent Grooming Independent Bathing Upper Body Set Up Bathing Lower Body Minimal Assistance Dressing Upper Body Independent Dressing Lower Body Minimal Assistance Toileting Modified Independent Instrumental Activities of Daily Living Assist Level Meal/Beverage Prep Light Cleaning Laundry Medication Management with Strategies Functional Mobility Assist Level Rolling Supine to Sit Independent Sit to Supine Scooting Sit to Stand Modified Independent Stand to Sit Modified Independent Bed to Chair Modified Independent Wheeled Walker Toilet/Commode Modified Independent Functional Mobility Please see discipline specific clinical documentation flowsheet for complete details for this therapy evaluation/treatment. SIGNATURE: PATSY Dubois/Queta PATIENT NAME: Cherry Sauceda DATE: February 20, 2019 TIME: 9:47 AM [facility] ALLIED HEALTHon 02-19-2019 ALLIED HEALTH HNO ID: [id number] Author: Samanta Gamino (RtAgnieszka Bach Service: Radiology Author Type: Manager Loan Type: Allied Health Filed: 02/19/2019 1:02 PM Note Text: Radiology Service Progress Note PATIENT NAME: Cherry Sauceda DATE OF SERVICE: February 19, 2019 TIME: 1:02 PM PATIENT IDENTITY VERIFICATION COMPLETED USING TWO (2) METHODS: Name and Date of confirmed by patient verbally and Name and Date of confirmed by identification band. PATIENT GENDER DATA: Male PATIENT RELEVANT IMPLANT DATA REVIEWED: Not Applicable RADIOLOGY DEPARTMENT: General X-ray: Exam(s) Completed: Pelvis X-Ray: Pelvis General AP PERIPHERAL IV DATA: Not applicable SIGNED BY: RT Debra February 19, 2019 1:02 PM [facility] ANES Harry 02-19-2019 ANES POST HNO ID: [id number] Author: Kailyn Perry Service: Anesthesiology Author Type: Anesthesiologist Type: Anesthesia PostOp Filed: 02/19/2019 1:44 PM Note Text: POST ANESTHESIA EVALUATION NOTE SERVICE DATE: 02/19/2019 SERVICE TIME: 1:43 PM : 1965 Vitals: 02/19/19 0732 02/19/19 1215 02/19/19 1300 02/19/19 1317 Temp: 36.3 ?C (97.3 ?F) 37.5 ?C (99.5 ?F) 36.2 ?C (97.2 ?F) 36.3 ?C (97.4 ?F) 02/19/19 1230 02/19/19 1245 02/19/19 1300 02/19/19 1317 BP: 115/66 113/98 131/86 127/78 02/19/19 1230 02/19/19 1245 02/19/19 1300 02/19/19 1317 Pulse: 64 60 (!) 59 (!) 58 02/19/19 1230 02/19/19 1245 02/19/19 1300 02/19/19 1317 Resp: 16 16 16 16 02/19/19 1230 02/19/19 1245 02/19/19 1300 02/19/19 1317 SpO2: 99% 100% 96% 100% Validated Vital Signs: Yes POST ANES STATUS: No apparent anesthetic complications. The patient is appropriately hydrated with stable respiratory and cardiovascular status. Patient has safe and adequate airway control. The patient has appropriate pain relief and no significant post operative nausea or vomiting. The patient has achieved baseline mental status. Intra-Operative Events: No Significant Anesthesia Events Further assessment by Anesthesia Service: None Other Remarks: SIGNATURE: Kailyn Perry MD PATIENT NAME: Cherry Sauceda DATE: February 19, 2019 TIME: 1:43 PM PAGER/CONTACT #: [facility] ANES PREOPon 02-19-2019 ANES PREOP HNO ID: [id number] Author: Kailyn Perry Service: Anesthesiology Author Type: Anesthesiologist Type: Anesthesia PreOp Filed: 02/19/2019 8:43 AM Note Text: ANESTHESIOLOGY DAY OF SURGERY NOTE SERVICE DATE: 02/19/2019 SERVICE TIME: 8:40 AM : 1965 Procedure(s) (LRB): ARTHROPLASTY REPLACE JOINT TOTAL HIP (Left) Surgeon(s): Hao Villanueva Estimated body mass index is 41.34 kg/m? as calculated from the following: Height as of 9/25/19: 188 cm (6' 2). Weight as of 02/04/19: 146.1 kg (322 lb). Most recent hematocrit and potassium results: Hematocrit 39.9 02/04/2019 Potassium 4.4 02/04/2019 ANES DOS/PREOP NOTE: Vitals: 02/19/19 0732 BP: 151/84 Pulse: 64 Resp: 14 Temp: 36.3 ?C (97.3 ?F) TempSrc: Temporal SpO2: 97% ACTIVE PROBLEM LIST Morbid Obesity (Hcc) Itching Primary Osteoarthritis of Right Hip Obesity, Class III, BMI >= 40 No past medical history on file. PAST SURGICAL HISTORY Procedure Laterality Date - COLONOSCOPY as teenager - EGD as a teenager. FAMILY HISTORY Problem Relation Age of Onset - Diabetes Mother - other (Other) Mother wears oxygen prn. - None Sister - None Brother Social History: Social History Tobacco Use - Smoking status: Never Smoker - Smokeless tobacco: Never Used Substance Use Topics - Alcohol use: Yes Comment: Several drinks per week - Drug use: Never No current facility-administered medications on file prior to encounter. Current Outpatient Medications on File Prior to Encounter: aspirin, enteric coated (ECOTRIN LOW STRENGTH) 81 mg EC tablet Take 1 tablet by mouth twice daily for 28 days. hydrOXYzine HCl (ATARAX) 25 mg tablet Take 1 tablet by mouth three times daily as needed. Current Facility-Administered Medications Medication Dose Route Frequency Provider Last Rate Last Dose - lidocaine 10 mg/mL (1 %) 1-2 mg injection (XYLOCAINE) 0.1-0.2 mL INTRADERMAL PRN Caitlyn (Alvarez) Juaquin - lactated ringers infusion 5-30 mL/hr INTRAVENOUS CONTINUOUS Caitlyn (Alvarez) Reza 30 mL/hr at 02/19/1937 30 mL/hr at 02/19/19836 - ceFAZolin 3 g in D5W 100 mL (ANCEF) 3 g INTRAVENOUS ONCE Caitlyn Allen) Juaquin - tranexamic acid 1,000 mg in NaCl 0.9% 100 mL (CYKLOKAPRON) 1,000 mg INTRAVENOUS ONCE Caitlyn Allen) Reza 200 mL/hr at 02/19/19 0838 1,000 mg at 02/19/19837 - tranexamic acid 1,000 mg in NaCl 0.9% 100 mL (CYKLOKAPRON) 1,000 mg INTRAVENOUS ONCE Caitlyn Reza (Pa) Allergies: ALLERGIES No Known Allergies DOS EXAM: Adequate NPO Status: Yes Anesthetic Risks, Benefits, Alternatives, Personnel and Consent Discussed: Yes Patient agrees to proceed: Yes Previous Anesthesia: No history of adverse event Airway Assessment: MP 1; Neck ROM: Full ROM without neurologic symptoms; Airway Evaluation: Short Neck and Thick neck Symptoms of Sleep Apnea: BMI > 35, Age over 50 (53 year old), Neck circumference > 15.75 inches and Male gender Dentition: Teeth intact upper right front crown Additional Physical Exam: Lungs: Patient health status unchanged since recent history and physical. See history and physical for exam findings. Cardiac: Patient health status unchanged since recent history and physical. See history and physical for exam findings. Additional Pertinent Findings: N/A Blood Products: Will accept Blood/Blood Products Anesthetic Plan: Regional with general as back up Anesthetic Monitoring: Standard ASA Monitors Pain Management Plan: Parenteral or Oral and per Surgical Service ASA Class: 2 Other Medical Problems: None Chronic Beta Tonya medication administered within 24 hours: N/A I have interviewed and examined the patient. I have reviewed the medical record and/or the pre-anesthesia evaluation, pertinent labs, and test results. Significant changes in the patient's condition since the History and Physical, not otherwise documented in primary service progress notes: No This contains updated information obtained within 48 hours of Surgery/Procedure. SIGNATURE: Kailyn Perry MD PATIENT NAME: Cherry Sauceda DATE: February 19, 2019 TIME: 8:40 AM CSN: [id number] [facility] CASE MGT INIT [facility] 2018 CASE MGT INIT [facility] HNO ID: [id number] Author: Cheyanne AlarconRnVelasquez Azar RN Service: Care Management Author Type: Registered Nurse Type: Care Mgt Initial Assessment Filed: 02/19/2019 3:06 PM Note Text: CARE MANAGEMENT: ASSESSMENT AND DISCHARGE PLAN SERVICE DATE: 02/19/2019 SERVICE TIME: 3:01 pm PRIMARY CARE PHYSICIAN: Kj Schilling MD ADMISSION STATUS: Inpatient - Procedure(s) (LRB): ARTHROPLASTY REPLACE JOINT TOTAL HIP (Left) Needs Prior to Discharge: Home Care Order;OT/PT Evaluation;Pharmacy Bedside Delivery MEDICAL: Patient/Representativ e Stated Goals: To have reduction in pain To have reduction in symptoms To improve my functional status Health Insurance: [employer] CARD PPO Health Issues Impacting Discharge Plan: None Last Discharge Date: 12/27/18 Is this Within the Past 30 days? No Advance Directive: Current Advance Directive: Health Care Power of Online Community Manager In Chart: Yes Up To Date and Valid: Yes Health Literacy: 1. How often do you need to have someone help you when you read instructions, pamphlets, or other written material from your doctor or pharmacy? Never - 1 2. How confident are you filling out medical forms by yourself? Extremely - 1 If Patient scores > 3 on either question, the following interventions were put into place: Patient did not score > 3 FUNCTIONAL AND COGNITIVE/BEHAVIORAL PRIOR TO ADMISSION: Baseline Mental Status: Alert AND Oriented, Person, Place , Time and Situation Functional Status: Independent Does Patient Currently Receive Any Community Services or Home Care? None Equipment Prior to Admission: None States he has a wheeled walker to use. Has the Patient Been in a Fpc Facility in the Past 30 days? No SOCIAL: Living Arrangement: Home Lives With: Spouse Financial Resources: N/A Primary Contact: Extended Emergency Contact Information Primary Emergency Contact: PHILLIP SAUCEDA Mobile Relation: Spouse Supportive: Yes Other Important Patient Contacts: None Caregiver Assessment: Caregiver is ready, willing and able to meet the patient's needs as recommended by the inter-professional team? Yes Patient's transition needs and plan for meeting these needs: PT / OT evals Does the patient have an acute stroke diagnosis, or has the patient had a stroke during this admission? No Medication Adherence: I am convinced of the importance of my prescription medication: Agree completely - 0 I worry that my prescription medication will do more harm than good to me Disagree completely - 0 I feel financially burdened by my [id number] expenses for my prescription medication: Disagree completely - 0 Patient is categorized as low risk < 2 Are you interested in bedside delivery of your medications? Yes Food Concerns: In the Last Month, Have You had Trouble Getting Food? No trouble getting food During the Last Month, Have You Worried Whether Your Food Would Run Out Before You Had Enough Money to Buy More? No Is the Patient Psychosocially Complex? No ASSESSMENT AND PLAN: Medical Needs: None Psychosocial Needs: None FREEDOM OF CHOICE EXPLAINED: Yes Cherry Sauceda Financial Disclosure Provided POTENTIAL TRANSITION PLANS Home OT/PT CM Department will continue to follow. SIGNATURE: Cheyanne Azar RN PATIENT NAME: Cherry Sauceda DATE: February 19, 2019 TIME: 3:01 PM PAGER/CONTACT #: [phone] [facility] NURSING PROGon 02-19-2019 NURSING PROG HNO ID: [id number] Author: Araseli Marvin RN Service: ? Author Type: Registered Nurse Type: Nursing Progress Note Filed: 02/19/2019 1:35 PM Note Text: Nursing Progress Note Patient Name: Cherry Sauceda Patient Location: [facility]D - Patient admitted from PACU to room 527-1 in stable condition at this time. Patient is alert and oriented x 3. Vital signs stable. Patient and spouse educated on 5D/unit procedures, fall precautions, call light, incentive spirometer and pain management. Patient verbalizes understanding. This note was completed by: Araseli Marvin RN [facility] NURSING PROG HNO ID: [id number] Author: Aleida Allen RN Service: ? Author Type: Registered Nurse Type: Nursing Progress Note Filed: 02/19/2019 12:14 PM Note Text: Discharge Status: Patient is Awakening, and is no airway issues. Skin condition was WNL. Transported to recovery room via bed with siderails up. Accompanied by marble cutter operator and PA-C/SA. [facility] NURSING PROG HNO ID: [id number] Author: Aleida Allen RN Service: ? Author Type: Registered Nurse Type: Nursing Progress Note Filed: 02/19/2019 10:26 AM Note Text: Patient transported to the OR via cart, accompanied by Alice ALLEN RN AND Alberto MONTESINOS CRNA. Level of consciousness: Alert and Oriented x 3 Emotional Status:Calm Sensory Impairments: No Language Barrier: No Mobility Impairments: Yes, SPINAL ANESTHESIA Addressed any patient concerns regarding consents, OR environment, and anesthetics. [id number] Author: Aleida AlarconRnVelasquez Allen RN Service: ? Author Type: Registered Nurse Type: Nursing Progress Note Filed: 02/19/2019 10:26 AM Note Text: Body temperature maintained by maintaining OR room temperature between 68-72 degrees F, providing patient with warm bath blankets, limiting areas of exposure and providing warm irrigation fluid. [facility] [id number] Author: Neyda AlarconRnVelasquez Caba RN Service: Nursing Author Type: Registered Nurse Type: Nursing Progress Note Filed: 02/19/2019 8:37 AM Note Text: Nursing Progress Note Patient Name: Cherry Sauceda Patient Location: -OPERATING ROOM POOL/KATHERINE-OR POOL Patient is alert, oriented. Pedal pulses palp. LEBRON equally. Safety maintained. This note was completed by: Neyda Caba RN [facility] NURSING [facility] ID: [id number] Author: Aarti Plasencia RN Service: Nursing Author Type: Registered Nurse Type: Nursing Progress Note Filed: 02/19/2019 7:38 AM Note Text: Nursing Progress Note Patient Name: Cherry Sauceda Patient Location: -OPERATING ROOM POOL/KATHERINE-OR POOL Daily Note:Patient states underwear off. This note was completed by: Aarti Plasencia RN [facility]: [id number] Author: Aarti Plasencia RN Service: Nursing Author Type: Registered Nurse Type: Nursing Progress Note Filed: 02/19/2019 7:37 AM Note Text: Nursing Progress Note Patient Name: Cherry Sauceda Patient Location: KATHERINE-OPERATING ROOM POOL/KATHERINE-OR POOL Daily Note:PAtietn states I do not see the need the need to use those wipes 2 times. Patient instructed on benefits of using chlohexadine wipes times 2 along with risks of not following directions. This note was completed by: Aarti Plasencia RN [facility] NURSING PROG O ID: [id number] Author: Aarti AlarconRn) RENA Plasencia Service: Nursing Author Type: Registered Nurse Type: Nursing Progress Note Filed: 02/19/2019 7:31 AM Note Text: Nursing Progress Note Patient Name: Cherry Sauceda Patient Location: -OPERATING ROOM POOL/KATHERINE-OR POOL Daily Note:Patient did not used chlorhexadine wipes as directed. PAtient verbalized they told me to use those the night before but I did not. I only used those after showering this morning. This note was completed by: Aarti Plasencia RN [facility] NURSING PROG HNO ID: [id number] Author: Aarti AlarconRn) RENA Plasencia Service: Nursing Author Type: Registered Nurse Type: Nursing Progress Note Filed: 02/19/2019 7:27 AM Note Text: Nursing Progress Note Patient Name: Cherry Sauceda Patient Location: KATHERINE-OPERATING ROOM POOL/KATHERINE-OR POOL Daily Note:patient last used Mobic 02/12/19, oxycodone 5/325 02/18/19, tylenol 02/18/19 This note was completed by: Aarti Plasencia RN [facility] PT EDon 02-19-2019 PT ED HNO ID: [id number] Author: Aarti Tsang (Rn) RENA Plasencia Service: Nursing Author Type: Registered Nurse Type: Patient Education Filed: 02/19/2019 7:11 AM Note Text: PATIENT EDUCATION TOPIC: PROCEDURE / SURGERY: Pre-op Teaching: Logistics Protocols Complication Prevention PATIENT NAME: Cherry Sauceda [facility] READINESS TO LEARN COGNITIVE ABILITY: Alert and oriented MOTIVATION TO LEARN: Interested FAMILY SUPPORT: High - Very involved in pt care INSTRUCTION PROVIDED TO: Patient and Family member PATIENT LEARNS BEST BY: Multiple Methods FACTORS AFFECTING LEARNING: Emotional Factors: Anxious PHYSICAL LIMITATIONS AFFECTING LEARNING: None LEARNING RESPONSE PATIENT/FAMILY RESPONSE: Verbalizes understanding of: PRE-OPERATIVE INSTRUCTIONS-Correct action to take to follow pre-operative instructions METHOD OF INSTRUCTION: Written instruction - handouts Verbal instruction FOLLOW-UP PLAN: Patient instructed to call with any further issues Follow-up with Primary Care Follow up phone call. Contact information given. INSTRUCTIONAL AIDS USED: List of Who to Call SUPPLEMENTAL MATERIAL PROVIDED TO PATIENT: None REFERRAL (RECOMMENDATION): None Electronically Signed By: Aarti Plasencia RN [facility] XR PELVIS 1V APon 02-19-2019 XR PELVIS 1V AP * * *Final Report* * * DATE OF EXAM: Feb 19 2019 1:01PM LUX 5239 - XR PELVIS 1V AP / PROCEDURE REASON: Post-operative / post-procedure assessment, asymptomatic * * * * Physician Interpretation * * * * Pelvis Left hip replacement Findings: AP of the mid and lower pelvis and upper thighs were performed. Status post left total hip arthroplasty with a non-cemented femoral stem. Alignment appears anatomic. There is air in the lateral soft tissues. Status post previous RIGHT hip joint replacement IMPRESSION: Satisfactory postoperative exam Veterans Service Officer: BART Transcribe Date/Time: Feb 19 2019 1:02P Dictated by : CHERRY GUERRERO MD This examination was interpreted and the report reviewed and electronically signed by: CHERRY GUERRERO MD on Feb 19 2019 1:03PM EST [id number] [facility] NURSING PROGon 02-10-2019 NURSING PROG HNO ID: [id number] Author: Rima (Rn) RENA Segura Service: General Surgery Author Type: Registered Nurse Type: Nursing Progress Note Filed: 02/10/2019 3:42 PM Note Text: PACC Nurse Progress Note History AND Physical: PACC Visit Date: 02-04-19 Original HANDP Date: N/A ED visit Date: N/A Outside HANDP Scanned Date: N/A Labs Within Last 6 Months: CBC: Date 02-04-19 BMP/CMP: Date 02-04-19 STAAMP: Date 02-04-19 TYPE AND SCREEN: Date 02-04-19 OTHER TEST: Iron, Ferritin, Date 02-04-19 Within acceptable limits, results in [facility]. Imaging Within Last 12 Months: N/A Cardiac Testing: EKG in last 12 Months: Yes: Date: 12-16-18, Comment: Confirmed in [facility] Last Menstrual Period: LMP Date: N/A Postmenopausal >1yr: N/A, S/P Hysterectomy: N/A BMI Percentile (PEDS): N/A Risk Assessment: N/A Anesthesia Review: N/A Narrative: N/A Pre-op Considerations: Per HANDP: Morbid obesity (HCC) Body mass index is 41.34 kg/m?. ? Chart Check: COMPLETED Rima Segura RN February 10, 2019 3:40 PM [facility] Type and SCR (30D)on 019 ABO/RH(D) Positive [facility] Comment on above: Performed By: #### C BCDIF, IRON, BMP, FERR #### [facility] [address] [address] HOSPon 01-16-2019 HOSP Patient:Cherry Sauceda MRN: Height:6' 2(1.88 m) Weight:322 lb (146.058 kg) Outpatient Medications as of 02/19/19: aspirin, enteric coated (ASPIR-LOW) 81 mg EC tablet docusate sodium (COLACE) 100 mg capsule meloxicam (MOBIC) [address] (PROTONIX) 20 mg tablet oxyCODONE IR (ROXICODONE) 5 mg immediate release tablet acetaminophen (TYLENOL EXTRA STRENGTH) 500 mg tablet aspirin, enteric coated (ECOTRIN LOW STRENGTH) 81 mg EC tablet hydrOXYzine HCl (ATARAX) 25 mg tablet Admission/Clinic Administered Medications as of 02/19/19: lidocaine 10 mg/mL (1 %) 1-2 mg injection (XYLOCAINE) lactated ringers infusion ceFAZolin 3 g in D5W 100 mL (ANCEF) tranexamic acid 1,000 mg in NaCl 0.9% 100 mL (CYKLOKAPRON) Problem List: Morbid obesity (HCC) [E66.01] Itching [L29.9] Primary osteoarthritis of right hip [M16.11] Obesity, Class III, BMI >= 40 [E66.01] Allergies: No Known Allergies Date Verified:02/19/19 Lab Values Lab Value Units Date High Low POTA* 4.4 mmol/L 02/04/2019 5.1 3.7 JIMI* 39.9 % 02/04/2019 51.0 39.0 Progress Notes (PRE ANES SAM): Letty Alonso LPN 02/04/2019 8:56 AM Signed Advance Directives discussed with patient: AD in chart and current. . Letty Alonso LPN February 04, 2019 8:56 AM Danyell Pace APRN.ANTHONY 02/04/2019 9:33 AM Signed HISTORY AND PHYSICAL EXAMINATION SERVICE DATE: 02/04/2019 SERVICE TIME: 9:09 AM PRIMARY CARE PHYSICIAN: Kj Schilling MD REASON FOR VISIT: Cherry Sauceda is a 53 year old male who is scheduled for left total hip arthroplasty at the request of Dr. Hao Villanueva for consultation. My final recommendation will be communicated back to the requesting physician by way of shared medical record or letter. The patient has the following: ACTIVE PROBLEM LIST Morbid Obesity (Hcc) Itching Primary Osteoarthritis of Right Hip Subjective CHIEF COMPLAINT: Left hip pain HPI: 53 yo male with h/o bilateral hip pain and is s/p right CLOVIS (12/26/18) - tolerated well. He now c/o pain to the left hip - constant. Pain is located over the hip and into the groin and back. He has elected for surgery, CLOVIS. No past medical history on file. PAST SURGICAL HISTORY Procedure Laterality Date - COLONOSCOPY as teenager - EGD as a teenager. FAMILY HISTORY Problem Relation Age of Onset - Diabetes Mother - other (Other) Mother wears oxygen prn. - None Sister - None Brother SOCIAL HISTORY: Social History Socioeconomic History Marital status: Single Spouse name: Not on file Number of children: Not on file Years of education: Not on file Highest education level: Not on file Occupational History Not on file Social Needs Financial resource strain: Not on file Food insecurity: Worry: Not on file Inability: Not on file Transportation needs: Medical: Not on file Non-medical: Not on file Tobacco Use Smoking status: Never Smoker Smokeless tobacco: Never Used Substance and Sexual Activity Alcohol use: Yes Comment: Several drinks per week Drug use: Never Sexual activity: Not on file Lifestyle Physical activity: Days per week: Not on file Minutes per session: Not on file Stress: Not on file Relationships Social connections: Talks on phone: Not on file Gets together: Not on file Attends rastafarian service: Not on file Active member of club or organization: Not on file Attends meetings of clubs or organizations: Not on file Relationship status: Not on file Intimate partner violence: Fear of current or ex partner: Not on file Emotionally abused: Not on file Physically abused: Not on file Forced sexual activity: Not on file Other Topics Concerns: Not on file Social History Narrative Not on file MEDICATIONS: Prior to Admission medications as of 02/04/19 0849 Medication Sig Last Dose Taking meloxicam (MOBIC) 15 mg tablet Take 15 mg by mouth once daily. Taking Yes aspirin, enteric coated (ECOTRIN LOW STRENGTH) 81 mg EC tablet Take 1 tablet by mouth twice daily for 28 days. Taking Yes hydrOXYzine HCl (ATARAX) 25 mg tablet Take 1 tablet by mouth three times daily as needed. Taking Yes pantoprazole DR (PROTONIX) 20 mg tablet Take 1 tablet by mouth once daily for 14 days. No medication comments found. CURRENT ALLERGIES: ALLERGIES No Known Allergies REVIEW OF SYSTEMS: PAIN ASSESSMENT: Pain Pain Level: 7 Pain Location: Hip-Left Description: Aching;Sharp Duration Units: Years Frequency: Continuous Intervention: Medication General: No weight loss, malaise or fevers. 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 No neurological symptoms or problems. Respiratory: No history of current cough or dyspnea, or pneumonia in the past 6 weeks. No history of respiratory/pulmonary symptoms or problems. Cardiovascular: No history of HTN requiring medication, no history of angina, CHF, MD, cardiac surgery or stents. Denies rest pain, gangrene or revascularization/amp utation for PVD. No history of cardiovascular symptoms or problems. GI: No history of GI symptoms or problems. No history of esophageal varices, recent ascites, or ETOH greater than 2 drinks per day. : No history of dysuria, frequency or incontinence,, stones or chronic kidney disease Endocrine: No history of diabetes. Has not taken steroids within the past 30 days. No history of endocrinological symptoms or problems. Hematology: No history of bleeding or clotting disorder. Pt is not taking anti-coagulation or platelet medications. No history of hematological symptoms or problems. Oncology: No history of CA metastasis, chemo within 30 days, or radiotherapy within 90 days. Has not lost 10% of body wt in 6 months. No history of oncological symptoms or problems. Psych: No history of psychiatric symptoms or problems. Musculoskeletal: Joint pain Skin: Negative for lesions, rash and itching. Objective PHYSICAL EXAM: VITALS: BP 137/72 Pulse 64 Temp (Src) 97.7 (Temporal) Resp 14 Ht 6' 2 (1.88m) Wt 322 lb (146.1kg) SpO2 98% BMI 41.32 kg/(m2). General: Alert and oriented Body mass index is 41.34 kg/m?. Skin: Normal color, no rash, no lesions. HEENT: EOM, pupils equal, round and reactive. Cardiovascular: Normal S1 AND S2, no rubs, murmurs or gallops. No JVD. Pulse regular. Lungs: Normal breath sounds, no wheezes or crackles. Abdomen: Soft, non-tender, no rigidity. Extremities: Joint tenderness Neurological: Normal cognition and motor skills. Pulses: Posterior tibial and radial pulses normal +2. Diagnostic tests reviewed for today's visit: Lab Value Units Date High Low HB 12.0 g/dL 12/27/2018 17.0 13.0 HCT 37.9 % 12/27/2018 51.0 39.0 WBC 8.85 k/uL 12/27/2018 11.00 3.70 PLT 245 k/uL 12/27/2018 400 150 NA 136 mmol/L 12/27/2018 144 136 K 4.4 mmol/L 12/27/2018 5.1 3.7 GLUC 138 mg/dL 12/27/2018 99 74 BUN 14 mg/dL 12/27/2018 24 9 CREAT 1.05 mg/dL 12/27/2018 1.22 0.73 PTSEC No results within date range. INR No results within date range. APTT No results within date range. ALT No results within date range. AST No results within date range. TBILI No results within date range. TSH No results within date range. Lab Value Units Date High Low HCGQT No results within date range. UHCG No results within date range. HCG, BODY* No results within date range. Lab Value Units Date High Low ABORHD O POSI* no uni* 12/16/2018 ABSCREEN NEG no uni* 12/16/2018 No results found for: HBA1C PENDING BMP - 12/27/2018 (wnl, except glucose: 138, Ca: 8.2) CBC - 12/27/2018 (wnl, except h/h: 12.0/37.9) EKG - 12/16/2018 Diagnosis:Sinus rhythm RSR' in V1 or V2, right VCD or RVH Baseline wander in lead(s) V1,V2 Otherwise Normal ECG Assessment/Plan Morbid obesity (HCC) Body mass index is 41.34 kg/m?. METS: Climb a flight of stairs or walk up a hill (5.50 METs) Patient denies any chest pain or undue shortness of breath with the above physical activity. ASA Class: 2 ANESTHESIA FINDINGS: Intubation History: No h/o difficult intubation Significant Anesthesia Considerations: None Airway Exam: General: Normal appearance, obese Body mass index is 41.34 kg/m?. Mallampati Score is CLASS III ULBT: Class I - Lower incisors can bite the upper lip above the joel line Neck: thick neck Mouth: Normal tongue size Dentition: Caps/crowns front tooth, right Airway History: No history of difficult intubation STOP BANG Score: Criteria: BMI > 35 Age over 50 (53 year old) Neck circumference > 15.75 inches Male gender Score = 4 PLAN This patient is optimally prepared for surgery pending LABS. CONSULTS: Patient does not require consults for optimization at this time. The Following Tests/Procedures Have Been Initiated: Orders Placed This Encounter CBC + DIFF Standing Status: Future Standing Expiration Date: 02/04/2020 BASIC METABOLIC PNL Standing Status: Future Standing Expiration Date: 02/04/2020 IRON + TIBC Standing Status: Future Standing Expiration Date: 02/04/2020 FERRITIN BLD Standing Status: Future Standing Expiration Date: 02/04/2020 STAPH AUREUS PCR Standing Status: Future Standing Expiration Date: 02/04/2020 TYPE + SCREEN,30 DAY Standing Status: Future Standing Expiration Date: 02/04/2020 meloxicam (MOBIC) 15 mg tablet Sig: Take 15 mg by mouth once daily. Planned Anesthetic: Per anesthesia choice Instructions Given to Patient: Instructions located in the after visit summary. Patient given verbal and written preop instructions and voices comprehension and compliance. SIGNATURE: Danyell Pace APRN.CNP PATIENT NAME: Cherry Sauceda DATE: February 04, 2019 TIME: 9:09 AM PAGER/CONTACT #: [phone] Danyell Pace APRN.CNP 02/04/2019 9:10 AM Written Body mass index is 41.34 kg/m?. Danyell Pace APRN.CNP 02/04/2019 9:30 AM Signed PATIENT PREOPERATIVE INSTRUCTIONS Hao Villanueva MD has scheduled you for your procedure at this surgery center: [facility]: [phone] --[address] [place] [address]. You will need to call the day prior to your procedure for your arrival time. Please call between 3:30pm and 5pm. On your scheduled day of surgery, please report to Patient Registration, [facility] (located next to [facility]) Please read below carefully for your personalized instructions. Blood Thinning Medications: - Stop NSAIDS (Ibuprofen, Advil, Aleve, Motrin, Celebrex, Mobic, etc.) 7 days before surgery, as directed by your surgeon. - Stop Aspirin 7 days before surgery, as directed by your surgeon. - Stop Vitamin E, ALL multi-vitamins, herbals and dietary supplements 14 days before surgery. - You may take Tylenol (Acetaminophen) or any of your pain medications that do not contain aspirin or NSAIDS as needed. Dietary Restrictions: - No solid food after midnight. - You may have clear liquids (water, clear juices such as apple juice or gatorade, carbonated beverages, clear tea, black coffee, jello) until 2 hours before scheduled arrival at facility. Medications: Approved medications to take the morning of surgery with a sip of water: None. If you take any medications for erectile dysfunction-Cialis (Tadalafil), Levitra, Staxyn (Vardenafil) Viagra (Sildenenafil please do not take these for 48 hours before surgery. If you start any new medications after today's visit, please contact the surgeon's office. Important Reminders: - Candy, mints, and tobacco products are NOT permitted the morning of surgery. - Hearing aids, dentures and glasses may be worn the morning of surgery. - NO jewelry, body piercings, makeup, hairpins or contacts are to be worn the day of surgery. If you develop symptoms such as a fever, cold, or flu, or have other changes to your health within TWO DAYS of scheduled surgery or the morning of surgery, please contact the surgery center above. Personal Belongings: -Please have photo ID and insurance cards. -If you do not have a copy of advance directives on file with us, please bring a copy with you on the day of surgery. - Leave ALL valuables and money at home or with family members. Arrival Time for Surgery: - You MUST call [facility] the afternoon before surgery after 3:30 pm (or Saturday for Saturday surgery) for a scheduled arrival time. Please be aware that emergency situations arise, which may delay or change your surgical time. If this happens, we will notify you as soon as possible and regret any inconvenience. Cat Pace APRN, LEAD SOFTWARE DEVELOPER [facility], [facility] [phone] Jennifer Navarrete LPN 02/04/2019 11:44 AM Signed Advance Directives discussed with patient: AD in chart and current. . Jennifer Navarrete LPN February 04, 2019 11:44 AM Danyell Pace APRN.ANTHONY 02/05/2019 6:49 AM Signed Labs reviewed: stable BMP (wnl, except chloride: 106, glucose: 105) CBC (wnl, except hgb: 12.9) Iron (wnl) Nasal swab (neg) T/S (O+) Normal [facility] Basic Metabolic Panlon 12-27 Anion gap [Moles/Vol] 7 mmol/L Low 9-18 [facility] Comment on above: Performed By: #### C BCDIF, IRON, BMP, FERR #### [place] [address] Calcium [Mass/Vol] 8.2 mg/dL Low 8.5-10.2 [facility] Comment on above: Performed By: #### C BCDIF, IRON, BMP, FERR #### [place] [address] Chloride [Moles/Vol] 101 mmol/L Normal 97-105 [facility] Comment on above: Performed By: #### C BCDIF, IRON, BMP, FERR #### [place] [address] CO2 [Moles/Vol] 28 mmol/L Normal 22-30 [facility] Comment on above: Performed By: #### C BCDIF, IRON, BMP, FERR #### [place] [address] Creatinine [Mass/Vol] 1.05 mg/dL Normal 0.73-1.22 [facility] Comment on above: Performed By: #### C BCDIF, IRON, BMP, FERR #### [place] [address] eGFR- Amer. >60 Normal >60 [facility] Comment on above: Performed By: #### C BCDIF, IRON, BMP, FERR #### [place] [address] GFR/1.73 sq M predicted among non-blacks MDRD (S/P/Bld) [Vol rate/Area] mL/min/{1.73_m2} Normal >60 [facility] Comment on above: Result Comment: eGFR (Estimated GFR) Units of measure: mL/min/1.73 meters squared eGFR is derived from the reexpressed MDRD Study equation using the following parameters: serum creatinine, age, gender and race. The creatinine assay has been calibrated to be traceable to IDMS. An eGFR <60 mL/min/1.73m2 for >3 months is consistent with chronic kidney disease. Refer to KDOQI guidelines for clinical interpretation. In patients with unstable renal function, e.g. those with acute kidney injury, the eGFR may not accurately reflect actual GFR. Performed By: #### C BCDIF, IRON, BMP, FERR #### [place] [address] Glucose [Mass/Vol] 138 mg/dL High 74-99 [facility] Comment on above: Performed By: #### C BCDIF, IRON, BMP, FERR #### [place] [address] Potassium [Moles/Vol] 4.4 mmol/L Normal 3.7-5.1 [facility] Comment on above: Performed By: #### C BCDIF, IRON, BMP, FERR #### [place] [address] Sodium [Moles/Vol] 136 mmol/L Normal 136-144 [facility] Comment on above: Performed By: #### C BCDIF, IRON, BMP, FERR #### [place] [address] Urea nitrogen [Mass/Vol] 14 mg/dL Normal 9-24 [facility] Comment on above: Performed By: #### C BCDIF, IRON, BMP, FERR #### [place] [address] CASE MANAGEMon 12-27-2018 CASE MANAGEM HNO ID: [id number] Author: Nicole Arriaza) Aleks Service: Care Management Author Type: Degreasing Wheel Operator Type: Care Mgt Progress Note Filed: 12/27/2018 12:34 PM Note Text: CARE MANAGEMENT DISCHARGE NOTE SERVICE DATE: 12/27/2018 SERVICE TIME: 12:28 PM LOS: 1 day Admission Date: 12/26/2018 DISCHARGE ARRANGEMENT (list agency and phone number) Home Care - PT and OT Provider: [facility] CAREGIVER ASSESSMENT: Caregiver is ready, willing and able to meet the patient's needs as recommended by the inter-professional team? Yes Patient's transition needs and plan for meeting these needs: Pt to discharge home with home care order for PT/OT. Does the patient have an acute stroke diagnosis, or has the patient had a stroke during this admission? No HANDOFF COMMUNICATION: Summary of Care sent to [facility] Visiting Nurse [facility]/S TRANSPORTATION ARRANGEMENTS: No ADDITIONAL CONTACT RESOURCES: N/A Pt scheduled for discharge. Pt to discharge home with home care order for PT/OT. Summary of Care sent to [facility] Nurse [facility]. Pt will follow up per discharge instructions. No resource needs at discharge. SIGNATURE: CODY Garcia PATIENT NAME: Cherry Sauceda DATE: December 27, 2018 TIME: 12:28 PM PAGER/CONTACT #: [phone] Normal [facility] CBCon 12-27-2018 Absolute nRBC <0.01 Normal <0.01 [facility] Comment on above: Performed By: #### C BCDIF, IRON, BMP, FERR #### [place] [address] Erythrocyte distribution width (RBC) [Ratio] 13.8 % Normal 11.5-15.0 [facility] Comment on above: Performed By: #### C BCDIF, IRON, BMP, FERR #### [place] [address] Hematocrit (Bld) [Volume fraction] 37.9 % Low 39.0-51.0 [facility] Comment on above: Performed By: #### C BCDIF, IRON, BMP, FERR #### [place] [address] Hemoglobin (Bld) [Mass/Vol] 12.0 g/dL Low 13.0-17.0 [facility] Comment on above: Performed By: #### C BCDIF, IRON, BMP, FERR #### [place] [address] MCH (RBC) [Entitic mass] 27.6 pG Normal 26.0-34.0 [facility] Comment on above: Performed By: #### C BCDIF, IRON, BMP, FERR #### [place] [address] MCHC (RBC) [Mass/Vol] 31.7 g/dL Normal 30.5-36.0 [facility] Comment on above: Performed By: #### C BCDIF, IRON, BMP, FERR #### [place] [address] MCV (RBC) [Entitic vol] 87.1 fL Normal 80.0-100.0 L [facility] Comment on above: Performed By: #### C BCDIF, IRON, BMP, FERR #### [place] [address] Platelet mean volume (Bld) [Entitic vol] 10.5 fL Normal 9.0-12.7 [facility] Comment on above: Performed By: #### C BCDIF, IRON, BMP, FERR #### [place] [address] Platelets (Bld) [#/Vol] 245 10*3/uL Normal 150-400 [facility] Comment on above: Performed By: #### C BCDIF, IRON, BMP, FERR #### [place] [address] RBC (Bld) [#/Vol] 4.35 10*6/uL Normal 4.20-6.00 [facility] Comment on above: Performed By: #### C BCDIF, IRON, BMP, FERR #### [place] [address] WBC (Bld) [#/Vol] 8.85 10*3/uL Normal 3.70-11.00 [facility] Comment on above: Performed By: #### C BCDIF, IRON, BMP, FERR #### [place] [address] PROGRESSon 12-27-2018 PROGRESS HNO ID: [id number] Author: Mary Gordon Service: General Internal Medicine Author Type: Physician Type: Progress Notes Filed: 12/27/2018 12:13 PM Note Text: PROGRESS NOTE - INTERNAL MEDICINE PATIENT NAME: Cherry Sauceda SERVICE DATE: December 27, 2018 SERVICE TIME: 12:12 PM PCP: Kj Schilling MD ADMITTING PHYSICIAN: Hao Villanueva MD INTERVAL HISTORY OF PRESENT ILLNESS: Pt seen felt well. No cp/ sob no weakness REVIEW OF SYSTEMS: GENERAL: No weight loss, malaise or fevers RESPIRATORY: Negative for cough, hemoptysis, wheezing, COPD, dyspnea or shortness of breath CARDIOVASCULAR: Negative for chest pain, leg swelling, hypertension, CHF or palpitations GI: No nausea, vomiting, or diarrhea : No history of dysuria, frequency or incontinence PSYCH: Negative for sleep disturbance, mood disorder and recent psychosocial stressors. ENDOCRINE: Negative for cold or heat intolerance, polyuria, polydipsia and goiter All other reviewed and negative other than HPI. PRIOR TO ADMISSION MEDICATIONS: Medications Prior to Admission: docusate sodium (COLACE) 100 mg capsule Take 1 capsule by mouth twice daily for 14 days. Disp: 28 capsule Rfl: 0 aspirin, enteric coated (ECOTRIN LOW STRENGTH) 81 mg EC tablet Take 1 tablet by mouth twice daily for 28 days. Disp: 56 tablet Rfl: 0 Past Week at Unknown time acetaminophen (TYLENOL EXTRA STRENGTH) 500 mg tablet Take 2 tablets by mouth every 8 hours for 7 days. Disp: 42 tablet Rfl: 0 12/25/2018 at Unknown time meloxicam (MOBIC) 15 mg tablet Take 1 tablet by mouth once daily for 14 days. Disp: 14 tablet Rfl: 0 Past Week at Unknown time oxyCODONE IR (ROXICODONE) 5 mg immediate release tablet Take 1-2 tablets by mouth every 4 hours as needed for Pain for up to 7 days. Disp: 84 tablet Rfl: 0 12/25/2018 at 1600 hydrOXYzine HCl (ATARAX) 25 mg tablet Take 1 tablet by mouth three times daily as needed. Disp: Rfl: Past Week at Unknown time pantoprazole DR (PROTONIX) 20 mg tablet Take 1 tablet by mouth once daily for 14 days. Disp: 14 tablet Rfl: 0 Unknown at Unknown time INs AND OUT SUMMARY: Intake/Output Summary (Last 24 hours) at 12/27/2018 1212 Last data filed at 12/27/2018 0400 Gross per 24 hour Intake 1262.5 ml Output 625 ml Net 637.5 ml PHYSICAL EXAM: Patient Vitals for the past 24 hrs: BP Temp Temp src Pulse Resp SpO2 12/27/18 0930 141/71 36.7 ?C (98.1 ?F) Oral 84 16 95 % 12/27/18 0522 136/73 36.7 ?C (98.1 ?F) Oral 91 16 98 % 12/27/18 0217 127/68 37.1 ?C (98.7 ?F) Oral 94 18 95 % 12/26/18 1800 153/66 36.7 ?C (98.1 ?F) Oral 105 16 98 % 12/26/18 1508 137/68 36.4 ?C (97.6 ?F) Oral 79 16 98 % GENERAL: Alert, no distress, cooperative SKIN: Skin color, texture, turgor normal. No rashes or lesions. NECK: No jugulovenous distention, No carotid bruits, Carotid pulse normal contour, Supple LUNGS: Lungs clear to auscultation. Good diaphragmatic excursion. CARDIAC: Normal S1 and S2; no rubs, murmurs, or gallops ABDOMEN: Abdomen soft, non-tender. BS normal. No masses or organomegaly. EXTREMETIES: Extremities normal. No deformities, edema, clubbing or skin discoloration. NEURO: Alert, oriented X 3, Cranial nerves II-XII intact, Gait normal. Reflexes normal and symmetric. Sensation grossly intact. PULSES: 2+ radial, 2+ carotid DATA: CBC, Coags, BMP, Mg, Phos Recent Labs 12/27/18 0456 WBC 8.85 HB 12.0* HCT 37.9* PLT 245 NA 136 K 4.4 CHLOR 101 CO2 28 BUN 14 CREAT 1.05 GLUC 138* CA 8.2* CSF AND Dilantin Liver Function, Amylase, AND Lipase IMAGING Reviewed and discussed with the patient. IN-PATIENT MEDICATIONS: Current Facility-Administered Medications Medication Dose Route Frequency - aspirin, enteric coated 81 mg tab(s) 81 mg ORAL BID - NaCl 0.9% iv infusion 75 mL/hr INTRAVENOUS CONTINUOUS - NaCl 0.9% 2-10 mL 2-10 mL INTRAVENOUS q 12 H - morphine 2 mg injection 2 mg INTRAVENOUS q 2 H PRN - oxyCODONE IR 5-10 mg tab(s) (ROXICODONE) 5-10 mg ORAL q 4 H PRN - acetaminophen 1,000 mg tab(s) (TYLENOL) 1,000 mg ORAL q 8 H - ketorolac 30 mg injection (TORADOL) 30 mg INTRAVENOUS q 6 H - ondansetron 4 mg tab(s) (ZOFRAN) 4 mg ORAL q 6 H PRN Or - ondansetron (PF) 4 mg injection (ZOFRAN) 4 mg INTRAVENOUS q 6 H PRN - magnesium hydroxide 400 mg/5 mL 30 mL (MOM) 30 mL ORAL DAILY PRN - bisacodyl EC 10 mg tab(s) (DULCOLAX) 10 mg ORAL DAILY - aluminum-magnesium hydroxide-simethicone 200-200-20 mg/5 mL 30 mL (MAALOX,MYLANTA,MAG-A L PLUS) 30 mL ORAL q 2 H PRN - ascorbic acid (vitamin C) 500 mg tab(s) (VITAMIN C) 500 mg ORAL BID w MEALS - docusate sodium 100 mg cap(s) (COLACE) 100 mg ORAL BID - diphenhydrAMINE 25-50 mg (BENADRYL) 25-50 mg ORAL q 6 H PRN PROBLEM LIST: ACTIVE PROBLEM LIST Morbid Obesity (Hcc) Itching Primary Osteoarthritis of Right Hip ASSESSMENT AND PLAN: *1. Rt hip oa 2. oa Obesity Medically ok SIGNATURE: Mary Gordon MD DATE: December 27, 2018 TIME: 12:12 PM [facility] PROGRESS HNO ID: [id number] Author: Sy Walker Service: Orthopaedic Surgery Author Type: Resident Type: Progress Notes Filed: 12/27/2018 8:19 AM Note Text: ORTHOPAEDIC SURGERY PROGRESS NOTE PATIENT NAME: Cherry Sauceda A/P: 53 year old yo male POD1 s/p right total hip - Activity: Weightbearing as tolerated - Wound: Aquacel Dressing to be removed POD7 - Drain: - Antibiotics: Completing 24 hours of perioperative Ancef then DC - Imaging: None - Pain - PO and IV breakthrough - DVT prophylaxis - SCDs, ASA 81 BID - HLIV when tolerating sufficient PO - Gould: Voiding well * Discharge planning - Await PT recs --> consults today - Case Management --> assessment today - Dispo: anticipate DC to home with home health today S: Doing well, pain well controlled, denies n/v/cp/sob VITALS: 12/26/18 1508 12/26/18 1800 12/27/18 0217 12/27/18 0522 BP: 137/68 153/66 127/68 136/73 Pulse: 79 105 94 91 Resp: Temp: 36.4 ?C (97.6 ?F) 36.7 ?C (98.1 ?F) 37.1 ?C (98.7 ?F) 36.7 ?C (98.1 ?F) TempSrc: Oral Oral Oral Oral SpO2: 98% 98% 95% 98% Weight: Height: Intake/Output Summary (Last 24 hours) at 12/27/2018 0818 Last data filed at 12/27/2018 0400 Gross per 24 hour Intake 3337.5 ml Output 925 ml Net 2412.5 ml Physical Exam: * Gen: awake, alert, converses appropriately, NAD * Resp: Unlabored on RA, no wheeze * Right LE: - dressing c,d,i - 5/5 PF, DF, EHL - SILT L4-S1 - 2+ PT pulse, toes wwp Labs: CBC: Recent Labs 12/27/18 0456 WBC 8.85 HB 12.0* HCT 37.9* PLT 245 MCV 87.1 RDWCV 13.8 COAG: No results for input(s): APTT, INR in the last 168 hours. BMP: Recent Labs 12/27/18 0456 GLUC 138* NA 136 K 4.4 CHLOR 101 CO2 28 ANION 7* BUN 14 CREAT 1.05 CHEM: Recent Labs 12/27/18 0456 CA 8.2* URINALYSIS:No results for input(s): PH, SPGR, UGLUC, UBILI, UKET, UHB, UPROT, UROBIL, UWBC, SSA in the last 168 hours. Invalid input(s): JAKE Walker MD Orthopaedic Surgery PGY-3 Pager:[phone] (Page 2BONE after 6pm and on wknds) [facility] THERAPY NTon 12-27-2018 THERAPY NT HNO ID: [id number] Author: Bebe AlarconPtVelasquez Alcala Service: Physical Therapy Author Type: Physical Therapist Type: Therapy (PT/OT/Speech/Resp) Filed: 12/27/2018 12:19 PM Note Text: Physical Therapy Treatment SERVICE DATE: 12/27/2018 SERVICE TIME: 1127 to 1200 ROOM: [id number] Recommended Discharge Disposition: Home PT Anticipated Discharge Needs: Physical Assist at Home Physical Assist at Home for: Cleaning;Laundry;Self Care;Shopping;Transpo rtation Recommended Discharge Equipment: Cane PT 6 Clicks Score: 24 Precautions/Activity Restrictions: Total Hip Replacement;Weight Bearing Restrictions Extremity With Weight Bearing Restricted: Right Lower Extremity Right Lower Extremity Weight Bearing Status: WBAT Total Hip Replacement Precautions: Posterior ASSESSMENT : Patient presents this session with increased independence with mobility; able to ambulate within hallway at mod I level with FWW for max support. Able to a/d 12 steps with SPV-- pt reports will have SPV at all times when a/d stair at home. Pt cleared to d/c homebound with support from and family as needed. Continue to recommend PT services for continued progression with functional mobility and HEP. Patient Disposition at Start of Session: OOB in Chair Patient Disposition at End of Session: OOB in Chair Tolerated Full Session Without limitations Physical Therapy Problem List: Pain;Impaired Self Care;Decreased Activity Tolerance;Decreased Range Of Motion;Decreased Strength;Functional Mobility Impairment;Balance Impaired Patient /Caregiver Goals: Walk;Go Home Goals for Plan of Care: Able to perform HEP with: Independent Rolling with: Supervision Transfer supine to/from sit with: Supervision Transfer sit to/from stand with: Supervision Ambulate with: Supervision Distance: 150 feet Device: Wheeled Walker Ambulate up and down steps with: Stand By Assistance Number of steps: 3 Device: Cane;Rail Progress Toward Goals: Progressing as expected Rehab Potential: Good PLAN: Treatment Frequency (times per week): 7 Current admission Treatment Interventions: Education;Self Care / Home Management;Energy Conservation Training;Strengthenin g;Functional Mobility Training;Balance Training Plan of Care developed with: Patient;Family TREATMENT INTERVENTIONS: Therapy Diagnosis: Reduced mobility-other Interventions Provided: Gait Training (13714);Therapeutic Exercise (49181) Therapeutic Exercise (61506) Treatment Minutes: 15 1 unit Skilled Intervention(s): Instruction in therapeutic exercise for correct performance Verbal and tactile cuing provided as needed Facilitation of muscle control, optimal recruitment and alignment for correct performance Education in importance of performance of exercises for healing and return to function Gait Training (92013) Treatment Minutes: 18 1 unit Skilled Intervention(s): Instruction in sit to stand technique with proper hand placement and body positioning at edge of bed/chair, Instruction in stand to sit technique with LE's touching chair/bed and reaching back for surface, Instruction in sequencing, gait pattern, Instruction in correction of gait deviations, Instruction in WB precautions, Instruction in stair negotiation and Instruction in use of equipment, cues for sequence and pattern Total Timed Code Treatment Minutes: 33 Total Treatment Time (minutes): 33 SUBJECTIVE: Current Hospital Course: Chart reviewed and no significant medical updates relevant to therapy were noted Reason for Physical Therapy Consult : s/p R THR Relevant Past Medical History: OA bilateral hips Patient Report: I am feeling better today, but stiff from sitting so long Home Environment Patient Lives With: Family Assistance Available: PRN Entry To Home: Stairs;Without Rail Number Of Stairs Into Home: 2 Number Of Stairs To Bed/Bath: 0 Tub/Shower Type: walk in shower Equipment Owned: (none. picking up wheeled walker prior to D/C) Prior Functional Level: Within Functional Limits OBJECTIVE: CURRENT FUNCTIONAL STATUS: Current Functional Mobility Assist Level Additional Information Rolling Supine to Sit Stand By Assistance Sit to Supine Scooting Stand By Assistance Sit to Stand Modified Independent Stand to Sit Modified Independent Bed to Chair Contact Guard Assistance Bed To Chair Transfer Type: Stand Pivot Bed To Chair Transfer Equipment: Wheeled Walker Toilet/Commode Gait Modified Independent Gait Device: Wheeled Walker Gait Distance (feet): 250 feet x2 Stairs Supervision Stairs Device: Cane;Rail;Other: See Comment(unilateral HR, progressed to cane only) Number of Stairs: 12 Curb Step Car Transfer Gait Deviations Right Lower Extremity: Weight bearing decreased;Stance time decreased;Heel strike during initial stance decreased;Push-off during terminal stance decreased;Knee flexion during stance increased General Gait Deviations: Meseret decreased;Flexed trunk posture -M: 8: Walk 250 feet or more Please see discipline specific clinical documentation flowsheet for complete details for this therapy evaluation/treatment. SIGNATURE: Bebe Alcala PT PATIENT NAME: Cherry Sauceda DATE: December 27, 2018 TIME: 12:16 PM [facility] THERAPY NT HNO ID: [id number] Author: Deidre AlarconOtVelasquez Conn OT Service: Occupational Therapy Author Type: Occupational Therapist Type: Therapy (PT/OT/Speech/Resp) Filed: 12/27/2018 9:31 AM Note Text: Occupational Therapy Evaluation SERVICE DATE: 12/27/2018 SERVICE TIME: 852 to 922 ROOM: [place] [address] Recommended Discharge Disposition: Home OT Anticipated Discharge Needs: Physical Assist at Home Physical Assist at Home for: Cleaning;Laundry;Self Care;Shopping;Transpo rtation Recommended Discharge Equipment: ADL Kit;Commode-Raised OT Recommendations to Nursing: To Bathroom for ADL?s /and or Toileting Equipment: Wheeled Walker OT 6 Clicks Score: 22 Precautions/Activity Restrictions: Total Hip Replacement;Weight Bearing Restrictions Extremity With Weight Bearing Restricted: Right Lower Extremity Right Lower Extremity Weight Bearing Status: WBAT Total Hip Replacement Precautions: Posterior ASSESSMENT: Patient is safe to discharge from acute care setting to home and care of family supports via car from OT perspective. Patient is s/p RTHA and demonstrates impaired self care and functional mobility. Patient requires skilled OT intervention to maximize independence/safety with ADLs, IADLs, functional mobility, and to educate on precautions and adaptive techniques/equipment . Patient would benefit from Home OT intervention to increase independence with self care, functional mobility and home management. Patient Disposition at Start of Session: OOB in Chair;Family Present;Call Enamorado in Reach Patient Disposition at End of Session: OOB in Chair;Call Enamorado in Reach;Family Present Tolerated Full Session Occupational Therapy Problem List: Safety Deficits;Impaired Self Care;Functional Mobility Impairment Patient /Caregiver Goals: Go Home Goals for Plan of Care: Lower Body Bathing with: Modified Independent Lower Body Dressing with: Modified Independent Demonstrate Competence With Education with: Independent Progress Toward Goals: Progressing as expected PLAN: Treatment Frequency (times per week): 3 Current admission Treatment Interventions: Education;Self Care / Home Management;Functional Mobility Training Plan of Care developed with: Patient TREATMENT INTERVENTIONS: Interventions Provided: Evaluation;Self Custodial Management (53298) $ Evaluation-Low (23284) Billed Units: 1 unit Self Custodial Management (20672) Treatment Minutes: 15 1 unit Skilled Intervention(s): Educated on role of OT, POC, and discharge recommendations. Reviewed post-operative precautions and guidelines with ADLs and functional mobility/ transfer techniques. Instructed pt on safety with grooming and hygiene tasks utilizing proper hand and walker placement. Instructed pt on use of adaptive techniques/equipment with lower body dressing and bathing. Pt practiced donning pants using manual writer. Verbalized understanding on how to use sock aid and shoe horn. States his will assist as needed. Recommended use of long handled sponge for bathing, manual writer, long handled shoe horn, and sock aid for lower body dressing. Issued equipment recommendation sheet. Recommended purchase of hip-kit adaptive equipment. Recommended home modifications for safety, including removal of throw rugs, clear pathways, and pre-positioning items for easy access. Patient instructed to not carry items in hands while using walker (use walker bag or basket). Walker safety handout issued. Instructed pt in functional transfers while maintaining post-operative precautions including: sit to stand, stand to sit, chair, toilet and car transfers. Educated on car transfer technique - pt verbalized understanding and declined need to simulate. Total Timed Code Treatment Minutes: 15 Total Treatment Time (minutes): 30 SUBJECTIVE: Current Hospital Course: Chart reviewed; see below Reason for Occupational Therapy Consult: s/p RTHR Relevant Past Medical History: OA bilateral hips Patient Report: Pt reports he is ready for d/c home today. Home Environment Patient Lives With: Family Assistance Available: PRN Entry To Home: Stairs;Without Rail Number Of Stairs Into Home: 2 Number Of Stairs To Bed/Bath: 0 Tub/Shower Type: walk in shower Equipment Owned: (none. picking up wheeled walker prior to D/C) Prior Functional Level: Within Functional Limits OBJECTIVE: CURRENT FUNCTIONAL STATUS: Current Activities of Daily Living Assist Level Feeding Independent Grooming Independent Bathing Upper Body Set Up Bathing Lower Body Minimal Assistance Dressing Upper Body Independent Dressing Lower Body Minimal Assistance Toileting Modified Independent Instrumental Activities of Daily Living Assist Level Meal/Beverage Prep Light Cleaning Laundry Medication Management with Strategies Functional Mobility Assist Level Rolling Supine to Sit Sit to Supine Scooting Sit to Stand Modified Independent Stand to Sit Modified Independent Bed to Chair Modified Independent Wheeled Walker Toilet/Commode Modified Independent Functional Mobility Please see discipline specific clinical documentation flowsheet for complete details for this therapy evaluation/treatment. SIGNATURE: PATSY Dubois/Queta PATIENT NAME: Cherry Sauceda DATE: December 27, 2018 TIME: 9:30 AM [facility] ANES Harry 12-26-2018 ANES POST HNO ID: [id number] Author: Rohit Morejon II Service: Anesthesiology Author Type: Anesthesiologist Type: Anesthesia PostOp Filed: 12/26/2018 1:11 PM Note Text: POST ANESTHESIA EVALUATION NOTE SERVICE DATE: 12/26/2018 SERVICE TIME: 1300 : 1965 Vitals: 12/26/18 0629 12/26/18 1033 12/26/18 1115 12/26/18 1153 Temp: 36.3 ?C (97.3 ?F) 36.7 ?C (98.1 ?F) 36.6 ?C (97.9 ?F) 36.6 ?C (97.8 ?F) 12/26/18 1045 12/26/18 1100 12/26/18 1115 12/26/18 1153 BP: 122/57 138/78 139/70 134/78 12/26/18 1045 12/26/18 1100 12/26/18 1115 12/26/18 1153 Pulse: (!) 58 73 61 81 12/26/18 1045 12/26/18 1100 12/26/18 1115 12/26/18 1153 Resp: 16 16 16 12/26/18 1045 12/26/18 1100 12/26/18 1115 12/26/18 1153 SpO2: 99% 98% 100% 100% Validated Vital Signs: Yes POST ANES STATUS: No apparent anesthetic complications. The patient is appropriately hydrated with stable respiratory and cardiovascular status. Patient has safe and adequate airway control. The patient has appropriate pain relief and no significant post operative nausea or vomiting. The patient has achieved baseline mental status. Intra-Operative Events: No Significant Anesthesia Events Further assessment by Anesthesia Service: None Other Remarks: SIGNATURE: Rohit Morejon II, DO PATIENT NAME: Cherry Sauceda DATE: December 26, 2018 TIME: 1:10 PM PAGER/CONTACT #: [phone] [facility] ANES PREOPon 12-26-2018 ANES PREOP HNO ID: [id number] Author: Freddy Huerta Service: Anesthesiology Author Type: Resident Type: Anesthesia PreOp Filed: 12/26/2018 7:03 AM Note Text: Attestation signed by Rohit Morejon II at 12/26/2018 7:17 AM agree GENERAL ANESTHESIA DAYOF SURGERY NOTE SERVICE DATE: 12/26/2018 SERVICE TIME: 6:56 AM Planned Procedure: Procedure(s): ARTHROPLASTY REPLACE JOINT TOTAL HIP Surgeon(s): Hao Villanueva No past medical history on file. ALLERGIES No Known Allergies Anesthetic Plan: Regional vs. General Anesthesia Monitoring: Standard ASA Monitors Pain Management Plan: IV/PO PRN in PACU/SDS ASA Class: 2 I have interviewed and examined the patient. I have reviewed the medical record and/or the pre-anesthesia evaluation, pertinent labs, consultations and test results. Significant changes in the patients condition since the History and Physical, not otherwise documented in primary service progress notes: No. Medications Taken Today: Per Chart Review Beta Blockers Pre-op: No Anesthetic risks, benefits, alternatives, personnel and consent discussed: Yes Patient agrees to proceed: Yes Previous Anesthesia: No history of anesthesia - no ARKS record Airway Assessment: MP 1; Neck ROM: Full ROM without neurologic symptoms; Airway Evaluation: No significant abnormalities Potential Anesthesia Issues: None Blood Products: Not anticipated for this procedure. and Will accept Blood/Blood Products SIGNATURE: Freddy Huerta MD PATIENT NAME: Cherry Sauceda DATE: December 26, 2018 TIME: 6:56 AM PAGER/CONTACT #: [facility] HNO ID: [id number] Author: Sarah Broussard (Rn) RENA Navarrete Service: Case Management Author Type: Registered Nurse Type: Care Mgt Initial Assessment Filed: 12/26/2018 12:14 PM Note Text: CARE MANAGEMENT: ASSESSMENT AND DISCHARGE PLAN SERVICE DATE: 12/26/2018 SERVICE TIME: 12:00 pm PRIMARY CARE PHYSICIAN: Kj Schilling MD ADMISSION STATUS: Extended Recovery Needs Prior to Discharge: OT/PT Evaluation MEDICAL: Patient/Representativ e Stated Goals: To improve my functional status To return home to life as it was Health Insurance: [employer] CARD PPO Health Issues Impacting Discharge Plan: None Last Discharge Date: N/A Is this Within the Past 30 days? No Advance Directive: Current Advance Directive: Health Care Power of Online Community Manager In Chart: Yes Up To Date and Valid: Yes Health Literacy: 1. How often do you need to have someone help you when you read instructions, pamphlets, or other written material from your doctor or pharmacy? Never - 1 2. How confident are you filling out medical forms by yourself? Extremely - 1 If Patient scores > 3 on either question, the following interventions were put into place: Patient did not score > 3 FUNCTIONAL AND COGNITIVE/BEHAVIORAL PRIOR TO ADMISSION: Baseline Mental Status: Alert AND Oriented, Person, Place , Time and Situation Functional Status: Independent Does Patient Currently Receive Any Community Services or Home Care? None Equipment Prior to Admission: Walker Has the Patient Been in a Fpc Facility in the Past 30 days? No SOCIAL: Living Arrangement: Home Lives With: Spouse Financial Resources: Employed: [employer] Primary Contact: Extended Emergency Contact Information Primary Emergency Contact: Phillip Sauceda [employer] [employer] Relation: spouse Supportive: Yes Other Important Patient Contacts: None Caregiver Assessment: Caregiver is ready, willing and able to meet the patient's needs as recommended by the inter-professional team? Yes Patient's transition needs and plan for meeting these needs: home care Does the patient have an acute stroke diagnosis, or has the patient had a stroke during this admission? No Medication Adherence: I am convinced of the importance of my prescription medication: Agree completely - 0 I worry that my prescription medication will do more harm than good to me Disagree completely - 0 I feel financially burdened by my [id number] expenses for my prescription medication: Disagree completely - 0 Patient is categorized as low risk < 2 Are you interested in bedside delivery of your medications? No Food Concerns: In the Last Month, Have You had Trouble Getting Food? No trouble getting food During the Last Month, Have You Worried Whether Your Food Would Run Out Before You Had Enough Money to Buy More? No Is the Patient Psychosocially Complex? 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 Has a walker and a script for an elevated toilet seat. He and his will be staying with friend when discharged. SIGNATURE: Sarah Navarrete RN PATIENT NAME: Cherry Sauceda DATE: December 26, 2018 TIME: 12:10 PM PAGER/CONTACT #: [phone] [facility] CONSULTon 12-26-2018 CONSULT HNO ID: [id number] Author: Jamie Espino Service: General Internal Medicine Author Type: Physician Type: Consults Filed: 12/26/2018 3:35 PM Note Text: CONSULT NOTE - INTERNAL MEDICINE PATIENT NAME: Cherry Sauceda SERVICE DATE: 12/26/2018 SERVICE TIME: 3:32 PM ADMITTING PHYSICIAN: Hao Villanueva CC: Post operative medical management; pt is s/p right THR HPI: His pain is controlled well; he is doing well since his surgery. He has not needed any pain medications after coming to the medical floor. He also mentions that he has been able to tolerate his diet after surgery without any problem He denies any significant medical problems. He has problems with itching off and on for many years. He uses Atarax with good results. He denies any recent skin infections, fever or chills, or any upper respiratory infections. No past medical history on file. PAST SURGICAL HISTORY Procedure Laterality Date - COLONOSCOPY as teenager - EGD as a teenager. Current Facility-Administered Medications: aspirin, enteric coated 81 mg tab(s) 81 mg ORAL BID NaCl 0.9% iv infusion 75 mL/hr INTRAVENOUS CONTINUOUS NaCl 0.9% 2-10 mL 2-10 mL INTRAVENOUS q 12 H morphine 2 mg injection 2 mg INTRAVENOUS q 2 H PRN oxyCODONE IR 5-10 mg tab(s) (ROXICODONE) 5-10 mg ORAL q 4 H PRN acetaminophen 1,000 mg tab(s) (TYLENOL) 1,000 mg ORAL q 8 H ketorolac 30 mg injection (TORADOL) 30 mg INTRAVENOUS q 6 H ondansetron 4 mg tab(s) (ZOFRAN) 4 mg ORAL q 6 H PRN Or ondansetron (PF) 4 mg injection (ZOFRAN) 4 mg INTRAVENOUS q 6 H PRN magnesium hydroxide 400 mg/5 mL 30 mL (MOM) 30 mL ORAL DAILY PRN [START ON 12/27/2018] bisacodyl EC 10 mg tab(s) (DULCOLAX) 10 mg ORAL DAILY aluminum-magnesium hydroxide-simethicone 200-200-20 mg/5 mL 30 mL (MAALOX,MYLANTA,MAG-A L PLUS) 30 mL ORAL q 2 H PRN ascorbic acid (vitamin C) 500 mg tab(s) (VITAMIN C) 500 mg ORAL BID w MEALS docusate sodium 100 mg cap(s) (COLACE) 100 mg ORAL BID ceFAZolin iv piggyback 2 g in D5W (iso-osmotic) 100 mL (ANCEF) 2 g INTRAVENOUS q 8 H diphenhydrAMINE 25-50 mg (BENADRYL) 25-50 mg ORAL q 6 H PRN Social History Tobacco Use - Smoking status: Never Smoker - Smokeless tobacco: Never Used Substance Use Topics - Alcohol use: Yes Comment: Several drinks per week - Drug use: Never ALLERGIES No Known Allergies ROS: Patient denies any recent ENT or eye complaints, CP, palpitation, cough, wheeze, dizziness, dyspnea, abdominal pain, nausea, vomiting, urinary or bowel changes, rash or increased ankle swelling. Rest of the review of system is negative except as noted. OBJECTIVE PHYSICAL EXAM: Patient Vitals for the past 24 hrs: BP Temp Temp src Pulse Resp SpO2 Height Weight 12/26/18 1508 137/68 36.4 ?C (97.6 ?F) Oral 79 16 98 % ? ? 12/26/18 1153 134/78 36.6 ?C (97.8 ?F) Oral 81 16 100 % ? ? 12/26/18 1151 ? 188 cm (6' 2) (!) 152 kg (335 lb 1.6 oz) 12/26/18 1115 139/70 36.6 ?C (97.9 ?F) Temporal Art 61 16 100 % ? ? 12/26/18 1100 138/78 ? ? 73 16 98 % ? ? 12/26/18 1045 122/57 ? ? (!) 58 16 99 % ? ? 12/26/18 1033 136/64 36.7 ?C (98.1 ?F) Temporal Art 68 16 97 % ? ? 12/26/18 0629 134/90 36.3 ?C (97.3 ?F) Temporal 73 14 95 % ? ? Body mass index is 43.02 kg/m?. GENERAL: no distress. AANDOX3 SKIN: normal turgor HEENT: conjunctiva is pink, no icterus; m/m moist, no sinus tenderness NECK: no LN LUNGS: Lungs clear to auscultation, Fair air entry. CARDIAC: normal S1 and S2; no rubs or gallops ABDOMEN: Abdomen soft, non-tender. BS normal. EXTREMETIES: Bilateral normal ankle DF Problem List ACTIVE PROBLEM LIST Morbid Obesity (Hcc) Itching Primary Osteoarthritis of Right Hip DATA: Diagnostic tests reviewed for today's visit: Most recent labs: CBC, Coags, BMP, Mg, Phos: No new labs Assessment/Plan: 1. Status post right THR: Pain is controlled well at this time. Discussed with patient regarding incentive spirometry and follow-up labs in the morning. 2. Itching, chronic intermittent: Patient will continue with Atarax as ordered. SIGNATURE: Jamie Espino MD DATE: December 26, 2018 TIME: 3:32 PM [facility] NURSING PROGon 12-26-2018 NURSING PROG HNO ID: [id number] Author: Neyda (Rn) RENA Walton Service: ? Author Type: Registered Nurse Type: Nursing Progress Note Filed: 12/26/2018 3:45 PM Note Text: Nursing Progress Note Patient Name: Cherry Sauceda Patient Location: [facility]-502D/[facility] - Daily Note:Pt arrived to unit in stable condition with family at bedside. Oriented to unit environment, 5D, call enamorado and hand held controller, [facility] welcome guide, pt rights and responsibilities, hourly rounding, pain mgmt, quiet at night, clean environment, preventing falls, smoking and second hand smoke, and blood clot prevention information, [facility] amenity guide, and patient admission checklist. This note was completed by: Neyda Walton RN [facility] NURSING PROG HNO ID: [id number] Author: Phyllis AlarconRn) RENA Bliss Service: ? Author Type: Registered Nurse Type: Nursing Progress Note Filed: 12/26/2018 11:06 AM Note Text: Nursing Progress Note Patient Name: Cherry Sauceda Patient Location: -OPERATING ROOM POOL/-OR POOL Daily Note: Xray done. This note was completed by: Phyllis Bliss RN [facility] NURSING PRO HNO ID: [id number] Author: Janeth AlarconRnVelasquez Sotomayor RN Service: ? Author Type: Registered Nurse Type: Nursing Progress Note Filed: 12/26/2018 10:33 AM Note Text: Patient transported to the OR via cart, accompanied by ap/pg. Level of consciousness: Alert and Oriented x 3 Emotional Status:Calm Sensory Impairments: No Language Barrier: No Mobility Impairments: No Addressed any patient concerns regarding consents, OR environment, and anesthetics. Body temperature maintained by maintaining OR room temperature between 68-72 degrees F, providing patient with warm bath blankets, limiting areas of exposure and providing warm irrigation fluid. Discharge Status: Patient is Awakening, and is extubated. Skin condition was warm. Transported to recovery room via bed with siderails up. Accompanied by marble cutter operator and PA-C/SA. [facility] NURSING PROG HNO ID: [id number] Author: Lisbeth AlarconRn) RENA Walker Service: ? Author Type: Registered Nurse Type: Nursing Progress Note Filed: 12/26/2018 7:10 AM Note Text: Nursing Progress Note Patient Name: Cherry Sauceda Patient Location: [facility]-OPERATING ROOM POOL/[facility]-OR POOL 0658:Admit to pre op holding.AANDOX3.LEBRON.B LE +/= push and pull.Pedal pulses present.Sensation intact.Right calf noted cat scratch.Safety measures in place This note was completed by: Lisbeth Walker RN [facility] NURSING PROG O ID: [id number] Author: Aarti AlarconRn) RENA Plasencia Service: Nursing Author Type: Registered Nurse Type: Nursing Progress Note Filed: 12/26/2018 6:43 AM Note Text: Nursing Progress Note Patient Name: Cherry Sauceda Patient Location: -OPERATING ROOM POOL/[facility]-OR POOL Daily Note:Patient given shraddha wipes and instructed to use today. This note was completed by: Aarti Plasencia RN [facility] NURSING PROG O ID: [id number] Author: Aarti Sher) RENA Plasencia Service: Nursing Author Type: Registered Nurse Type: Nursing Progress Note Filed: 12/26/2018 6:33 AM Note Text: Nursing Progress Note Patient Name: Cherry Sauceda Patient Location: [facility]-OPERATING ROOM POOL/[facility]-OR POOL Daily Note:underwear off. This note was completed by: Aarti Plasencia RN [facility] PT EDon 12-26-2018 PT ED HNO ID: [id number] Author: Aarti Tsang (Rn) RENA Plasencia Service: Nursing Author Type: Registered Nurse Type: Patient Education Filed: 12/26/2018 6:33 AM Note Text: PATIENT EDUCATION TOPIC: PROCEDURE / SURGERY: Pre-op Teaching: Logistics Protocols Complication Prevention PATIENT NAME: Cherry Sauceda [facility] [place] READINESS TO LEARN COGNITIVE ABILITY: Alert and oriented MOTIVATION TO LEARN: Interested FAMILY SUPPORT: High - Very involved in pt care INSTRUCTION PROVIDED TO: Patient and Family member PATIENT LEARNS BEST BY: Multiple Methods FACTORS AFFECTING LEARNING: Emotional Factors: Anxious PHYSICAL LIMITATIONS AFFECTING LEARNING: None LEARNING RESPONSE PATIENT/FAMILY RESPONSE: Verbalizes understanding of: PRE-OPERATIVE INSTRUCTIONS-Correct action to take to follow pre-operative instructions METHOD OF INSTRUCTION: Verbal instruction FOLLOW-UP PLAN: Patient instructed to call with any further issues INSTRUCTIONAL AIDS USED: NA SUPPLEMENTAL MATERIAL PROVIDED TO PATIENT: None REFERRAL (RECOMMENDATION): None Electronically Signed By: Aarti Plasencia RN [facility] THERAPY NTon 12-26-2018 THERAPY NT HNO ID: [id number] Author: Caroline AlarconPtVelasquez Sandoval Service: Physical Therapy Author Type: Physical Therapist Type: Therapy (PT/OT/Speech/Resp) Filed: 12/26/2018 5:11 PM Note Text: Physical Therapy Treatment SERVICE DATE: 12/26/2018 SERVICE TIME: 1623 to 1636 ROOM: [place] [address] Recommended Discharge Disposition: Home PT Anticipated Discharge Needs: Physical Assist at Home;Equipment Physical Assist at Home for: Stairs Recommended Discharge Equipment: Cane PT 6 Clicks Score: 18 Precautions/Activity Restrictions: Total Hip Replacement;Weight Bearing Restrictions Extremity With Weight Bearing Restricted: Right Lower Extremity Right Lower Extremity Weight Bearing Status: WBAT Total Hip Replacement Precautions: Posterior ASSESSMENT :Pt progressing as expected. Able to ambulate in ruby and sit up in bedside chair for dinner. Anticipate D/C home tomorrow after stair training. Patient Disposition at Start of Session: Supine in Bed;Call Enamorado in Reach;Family Present Patient Disposition at End of Session: OOB in Chair;Call Enamorado in Reach;Family Present Tolerated Full Session Without limitations Physical Therapy Problem List: Pain;Impaired Self Care;Decreased Activity Tolerance;Decreased Range Of Motion;Decreased Strength;Functional Mobility Impairment;Balance Impaired Patient /Caregiver Goals: Walk;Go Home Goals for Plan of Care: Able to perform HEP with: Independent Rolling with: Supervision Transfer supine to/from sit with: Supervision Transfer sit to/from stand with: Supervision Ambulate with: Supervision Distance: 150 feet Device: Wheeled Walker Ambulate up and down steps with: Stand By Assistance Number of steps: 3 Device: Cane;Rail Progress Toward Goals: Progressing as expected Rehab Potential: Good PLAN: Treatment Frequency (times per week): 7 Current admission Treatment Interventions: Education;Self Care / Home Management;Energy Conservation Training;Strengthenin g;Functional Mobility Training;Balance Training Plan of Care developed with: Patient;Family TREATMENT INTERVENTIONS: Therapy Diagnosis: Reduced mobility-other;Diffic ulty walking-musculoskelet al Interventions Provided: Gait Training (10199) Gait Training (28452) Treatment Minutes: 13 1 unit Skilled Intervention(s): Instruction in sit to stand technique with proper hand placement and body positioning at edge of bed/chair, Instruction in stand to sit technique with LE's touching chair/bed and reaching back for surface, Instruction in sequencing, gait pattern, Instruction in correction of gait deviations, Instruction in WB precautions, Instruction in use of equipment, cues for sequence and pattern and posture, balance, safety, equipment, conservation of energy techniques, benefits of mobility and use of call light for staff assist to mobilize/reposition as tolerated Total Timed Code Treatment Minutes: 13 Total Treatment Time (minutes): 13 SUBJECTIVE: Current Hospital Course: Chart reviewed and no significant medical updates relevant to therapy were noted Reason for Physical Therapy Consult : s/p R THR Relevant Past Medical History: OA bilateral hips Patient Report: It feels good to get out of that bed Home Environment Patient Lives With: Family Assistance Available: PRN Entry To Home: Stairs;Without Rail Number Of Stairs Into Home: 2 Number Of Stairs To Bed/Bath: 0 Equipment Owned: (none. picking up wheeled walker prior to D/C) Prior Functional Level: Within Functional Limits OBJECTIVE: CURRENT FUNCTIONAL STATUS: Current Functional Mobility Assist Level Additional Information Rolling Supine to Sit Stand By Assistance Sit to Supine Scooting Stand By Assistance Sit to Stand Contact Guard Assistance Stand to Sit Contact Guard Assistance Bed to Chair Contact Guard Assistance Bed To Chair Transfer Type: Stand Pivot Bed To Chair Transfer Equipment: Wheeled Walker Toilet/Commode Gait Contact Guard Assistance Gait Device: Wheeled Walker Gait Distance (feet): 70 feet x 1 Stairs Curb Step Car Transfer Gait Deviations Right Lower Extremity: Weight bearing decreased;Stance time decreased;Heel strike during initial stance decreased;Push-off during terminal stance decreased;Step length decreased General Gait Deviations: Meseret decreased;Flexed trunk posture(step to) -HLM: 7: Walk 25 feet or more Please see discipline specific clinical documentation flowsheet for complete details for this therapy evaluation/treatment. SIGNATURE: Caroline Sandoval, PT PATIENT NAME: Cherry Sauceda DATE: December 26, 2018 TIME: 5:07 PM [facility] THERAPY NT HNO ID: [id number] Author: Caroline (Pt) Lori Service: Physical Therapy Author Type: Physical Therapist Type: Therapy (PT/OT/Speech/Resp) Filed: 12/26/2018 2:19 PM Note Text: Physical Therapy Evaluation SERVICE DATE: 12/26/2018 SERVICE TIME: 1340 to 1405 ROOM: [place] [address] Recommended Discharge Disposition: Home PT Anticipated Discharge Needs: Physical Assist at Home;Equipment Physical Assist at Home for: Stairs Recommended Discharge Equipment: Cane PT 6 Clicks Score: 14 Precautions/Activity Restrictions: Total Hip Replacement;Weight Bearing Restrictions Extremity With Weight Bearing Restricted: Right Lower Extremity Right Lower Extremity Weight Bearing Status: WBAT Total Hip Replacement Precautions: Posterior ASSESSMENT :Pt presents with impaired tolerance to activity, functional mobility and R hip strength/ROM following R THR. Pt requires skilled PT for post op THR education, exercises and progression of mobility. Unable to assess OOB mobility at this time d/t reduced sensation and motor function following spinal anesthesia. Pt and family educated on THR POC and precautions, THR booklet provided. Addressed pt/family questions/concerns from PT perspective. Will follow up later today to assess mobility once spinal fully resolves. Anticipate D/C home tomorrow after PT session and stair training. Pt would benefit from continued PT at home to progress HEP and independent mobility. Patient Disposition at Start of Session: Supine in Bed;Call Enamorado in Reach;Family Present Patient Disposition at End of Session: Supine in Bed;Call Enamorado in Reach;Family Present Tolerance Limited By (decreased sensation/motor control s/p spinal anesthesia) Physical Therapy Problem List: Pain;Impaired Self Care;Decreased Activity Tolerance;Decreased Range Of Motion;Decreased Strength;Functional Mobility Impairment;Balance Impaired Patient /Caregiver Goals: Walk;Go Home Goals for Plan of Care: Able to perform HEP with: Independent Rolling with: Supervision Transfer supine to/from sit with: Supervision Transfer sit to/from stand with: Supervision Ambulate with: Supervision Distance: 150 feet Device: Wheeled Walker Ambulate up and down steps with: Stand By Assistance Number of steps: 3 Device: Cane;Rail Rehab Potential: Good PLAN: Treatment Frequency (times per week): 7 Current admission Treatment Interventions: Education;Self Care / Home Management;Energy Conservation Training;Strengthenin g;Functional Mobility Training;Balance Training Plan of Care developed with: Patient;Family TREATMENT INTERVENTIONS: Therapy Diagnosis: Reduced mobility-other;Diffic ulty walking-musculoskelet al Interventions Provided: Evaluation;Therapeuti c Activity (25922) $ Evaluation-Low (25098) Billed Units: 1 unit Therapeutic Activity (40277) Treatment Minutes: 10 1 unit Skilled Intervention(s): Education with POC, precautions, THR boolet, antiembolics (performed 1x10), nonpharm pain control techniques, home management and modifications Total Timed Code Treatment Minutes: 10 Total Treatment Time (minutes): 25 SUBJECTIVE: Current Hospital Course: Chart reviewed; 53 y.o male admitted 12/26/18 s/p R THR Reason for Physical Therapy Consult : s/p R THR Relevant Past Medical History: OA bilateral hips Patient Report: My left hip is bad. I'm going to have it done too. Home Environment Patient Lives With: Family Assistance Available: PRN Entry To Home: Stairs;Without Rail Number Of Stairs Into Home: 2 Number Of Stairs To Bed/Bath: 0 Equipment Owned: (none. picking up wheeled walker prior to D/C) Prior Functional Level: Within Functional Limits OBJECTIVE: CURRENT FUNCTIONAL STATUS: Current Functional Mobility Assist Level Additional Information Rolling Supine to Sit Sit to Supine Scooting Sit to Stand Stand to Sit Bed to Chair Toilet/Commode Gait Stairs Curb Step Car Transfer -M: 2: Bed activities / dependent transfer Please see discipline specific clinical documentation flowsheet for complete details for this therapy evaluation/treatment. SIGNATURE: Carolnie Sandoval PT PATIENT NAME: Cherry Sauceda DATE: December 26, 2018 TIME: 2:14 PM [facility] XR PELVIS 1V APon 12-26-2018 XR PELVIS 1V AP * * *Final Report* * * DATE OF EXAM: Dec 26 2018 11:12AM LUX 5239 - XR PELVIS 1V AP / PROCEDURE REASON: Post-operative / post-procedure assessment, asymptomatic * * * * Physician Interpretation * * * * EXAM: XR PELVIS 1V AP HISTORY: Post-operative / post-procedure assessment, asymptomatic. Right hip replacement. VIEWS: Portable AP at 1058 hrs. FINDINGS: Completed right total hip arthroplasty with anatomic alignment of components and screw fixation of acetabular cup. Neutral femoral stem position. Postsurgical soft tissue emphysema. IMPRESSION: Postoperative right total hip arthroplasty. Veterans Service Officer: BART Transcribe Date/Time: Dec 26 2018 11:22A Dictated by : Janet ELLIS MD This examination was interpreted and the report reviewed and electronically signed by: Janet ELLIS MD on Dec 26 2018 11:23AM EST [id number] N [facility] Basic Metabolic Panlon 12-16 Anion gap [Moles/Vol] 13 mmol/L Normal 9-18 [facility] Comment on above: Performed By: #### C BCDIF, IRON, BMP, FERR #### [place] [address] Calcium [Mass/Vol] 9.4 mg/dL Normal 8.5-10.2 [facility] Comment on above: Performed By: #### C BCDIF, IRON, BMP, FERR #### [place] [address] Chloride [Moles/Vol] 102 mmol/L Normal 97-105 [facility] Comment on above: Performed By: #### C BCDIF, IRON, BMP, FERR #### [place] [address] CO2 [Moles/Vol] 24 mmol/L Normal 22-30 [facility] Comment on above: Performed By: #### C BCDIF, IRON, BMP, FERR #### [place] [address] Creatinine [Mass/Vol] 0.96 mg/dL Normal 0.73-1.22 [facility] Comment on above: Performed By: #### C BCDIF, IRON, BMP, FERR #### [place] [address] eGFR- Amer. >60 Normal >60 [facility] Comment on above: Performed By: #### C BCDIF, IRON, BMP, FERR #### [place] [address] GFR/1.73 sq M predicted among non-blacks MDRD (S/P/Bld) [Vol rate/Area] mL/min/{1.73_m2} Normal >60 [facility] Comment on above: Result Comment: eGFR (Estimated GFR) Units of measure: mL/min/1.73 meters squared eGFR is derived from the reexpressed MDRD Study equation using the following parameters: serum creatinine, age, gender and race. The creatinine assay has been calibrated to be traceable to IDMS. An eGFR <60 mL/min/1.73m2 for >3 months is consistent with chronic kidney disease. Refer to KDOQI guidelines for clinical interpretation. In patients with unstable renal function, e.g. those with acute kidney injury, the eGFR may not accurately reflect actual GFR. Performed By: #### C BCDIF, IRON, BMP, FERR #### [place] [address] Glucose [Mass/Vol] 110 mg/dL High 74-99 [facility] Comment on above: Performed By: #### C BCDIF, IRON, BMP, FERR #### [place] [address] Potassium [Moles/Vol] 4.3 mmol/L Normal 3.7-5.1 [facility] Comment on above: Performed By: #### C BCDIF, IRON, BMP, FERR #### [place] [address] Sodium [Moles/Vol] 139 mmol/L Normal 136-144 [facility] Comment on above: Performed By: #### C BCDIF, IRON, BMP, FERR #### [place] [address] Urea nitrogen [Mass/Vol] 21 mg/dL Normal 9-24 [facility] Comment on above: Performed By: #### C BCDIF, IRON, BMP, FERR #### [place] [address] CBC and Differentialon 12-16 Abs Baso 0.08 k/uL Normal <0.11 [facility] Comment on above: Performed By: #### C BCDIF, IRON, BMP, FERR #### [place] [address] Abs [place] 0.92 k/uL High <0.87 [facility] Comment on above: Performed By: #### C BCDIF, IRON, BMP, FERR #### [place] [address] Abs Neut 3.27 k/uL Normal 1.45-7.50 [facility] Comment on above: Performed By: #### C BCDIF, IRON, BMP, FERR #### [place] [address] Absolute nRBC <0.01 Normal <0.01 [facility] Comment on above: Performed By: #### C BCDIF, IRON, BMP, FERR #### [place] [address] Basophils/100 WBC (Bld) 1.1 % Normal [facility] Comment on above: Performed By: #### C BCDIF, IRON, BMP, FERR #### [place] [address] DTYPE Auto Diff Normal [facility] Comment on above: Performed By: #### C BCDIF, IRON, BMP, FERR #### [place] [address] Eosinophils (Bld) [#/Vol] 0.44 10*3/uL Normal <0.46 [facility] Comment on above: Performed By: #### C BCDIF, IRON, BMP, FERR #### [place] [address] Eosinophils/100 WBC (Bld) 6.0 % Normal [facility] Comment on above: Performed By: #### C BCDIF, IRON, BMP, FERR #### [place] [address] Erythrocyte distribution width (RBC) [Ratio] 14.1 % Normal 11.5-15.0 [facility] Comment on above: Performed By: #### C BCDIF, IRON, BMP, FERR #### [place] [address] Hematocrit (Bld) [Volume fraction] 45.8 % Normal 39.0-51.0 [facility] Comment on above: Performed By: #### C BCDIF, IRON, BMP, FERR #### [place] [address] Hemoglobin (Bld) [Mass/Vol] 15.2 g/dL Normal 13.0-17.0 [facility] Comment on above: Performed By: #### C BCDIF, IRON, BMP, FERR #### [place] [address] Lymphocytes (Bld) [#/Vol] 2.64 10*3/uL Normal 1.00-4.00 [facility] Comment on above: Performed By: #### C BCDIF, IRON, BMP, FERR #### [place] [address] Lymphocytes/100 WBC (Bld) 35.8 % Normal [facility] Comment on above: Performed By: #### C BCDIF, IRON, BMP, FERR #### [place] [address] MCH (RBC) [Entitic mass] 28.7 pG Normal 26.0-34.0 [facility] Comment on above: Performed By: #### C BCDIF, IRON, BMP, FERR #### [place] [address] MCHC (RBC) [Mass/Vol] 33.2 g/dL Normal 30.5-36.0 [facility] Comment on above: Performed By: #### C BCDIF, IRON, BMP, FERR #### [place] [address] MCV (RBC) [Entitic vol] 86.4 fL Normal 80.0-100.0 [facility] Comment on above: Performed By: #### C BCDIF, IRON, BMP, FERR #### [place] [address] Monocytes/100 WBC (Bld) 12.5 % Normal [facility] Comment on above: Performed By: #### C BCDIF, IRON, BMP, FERR #### [place] [address] Neutrophils/100 WBC (Bld) 44.6 % Normal [facility] Comment on above: Performed By: #### C BCDIF, IRON, BMP, FERR #### [place] [address] NRBCs 0.0 /100 WBC Normal 0 [facility] Comment on above: Performed By: #### C BCDIF, IRON, BMP, FERR #### [place] [address] Platelet mean volume (Bld) [Entitic vol] 10.0 fL Normal 9.0-12.7 [facility] Comment on above: Performed By: #### C BCDIF, IRON, BMP, FERR #### [place] [address] Platelets (Bld) [#/Vol] 288 10*3/uL Normal 150-400 [facility] Comment on above: Performed By: #### C BCDIF, IRON, BMP, FERR #### [place] [address] RBC (Bld) [#/Vol] 5.30 10*6/uL Normal 4.20-6.00 [facility] Comment on above: Performed By: #### C BCDIF, IRON, BMP, FERR #### [place] [address] WBC (Bld) [#/Vol] 7.37 10*3/uL Normal 3.70-11.00 [facility] Comment on above: Performed By: #### C BCDIF, IRON, BMP, FERR #### [place] [address] Confirm Blood Typeon 019 ABO/RH(D) Positive Normal [facility] Comment on above: Performed By: #### C ONABO #### [place] [address] Ferritinon 12-16-2018 Ferritin [Mass/Vol] 371.1 ng/mL Normal 30.3-565.7 [facility] Comment on above: Performed By: #### C BCDIF, IRON, BMP, FERR #### [place] [address] Iron and TIBCon 12-16-2018 Iron [Mass/Vol] 57 ug/dL Normal 41-186 [facility] Comment on above: Performed By: #### C BCDIF, IRON, BMP, FERR #### [place] [address] TIBC 357 ug/dL Normal 232-386 [facility] Comment on above: Performed By: #### C BCDIF, IRON, BMP, FERR #### [place] [address] Transferrin Saturatn 16 % Normal 15-57 [facility] Comment on above: Performed By: #### C BCDIF, IRON, BMP, FERR #### [place] [address] NURSING PROGon 12-16-2018 NURSING PROG HNO ID: [id number] Author: Katelyn (Rn) RENA Velez Service: Neurosurgery Author Type: Registered Nurse Type: Nursing Progress Note Filed: 12/16/2018 2:19 PM Note Text: PACC Nurse Progress Note History AND Physical: PACC Visit Date: 12-16-18 Original HANDP Date: N/A ED visit Date: N/A Outside HANDP Scanned Date: N/A Labs Within Last 6 Months: CBC: Date 12-16-18 BMP/CMP: Date 12-16-18 STAAMP: Date 11-11-18 neg TYPE AND SCREEN: Date 12-16-18 Imaging Within Last 12 Months: N/A Cardiac Testing: EKG in last 12 Months: Yes: Date: 12-16-18, Comment: epic BMI Percentile (PEDS): N/A Risk Assessment: N/A Anesthesia Review: N/A Narrative: Labs acceptable Pre-op Considerations: N/A Chart Check: IN PROGRESS expecting labs and ekg from PCP Katelyn Velez RN December 16, 2018 2:18 PM [facility] Type and SCR (30D)on 019 ABO/RH(D) Positive [facility] Comment on above: Performed By: #### T SCR30 #### [facility] [address] [address] HOSPon 11-11-2018 HOSP Patient:Cherry Sauceda MRN: Height:6' 2(1.88 m) Weight:328 lb (148.78 kg) Outpatient Medications as of 12/26/18: docusate sodium (COLACE) 100 mg capsule aspirin, enteric coated (ECOTRIN LOW STRENGTH) 81 mg EC tablet acetaminophen (TYLENOL EXTRA STRENGTH) 500 mg tablet meloxicam (MOBIC) 15 mg tablet oxyCODONE IR (ROXICODONE) 5 mg immediate release tablet pantoprazole DR (PROTONIX) 20 mg tablet hydrOXYzine HCl (ATARAX) 25 mg tablet Admission/Clinic Administered Medications as of 12/26/18: lidocaine 10 mg/mL (1 %) 1-2 mg injection (XYLOCAINE) lactated ringers infusion ceFAZolin 3 g in D5W 100 mL (ANCEF) tranexamic acid 1,000 mg in NaCl 0.9% 100 mL (CYKLOKAPRON) tranexamic acid 1,000 mg in NaCl 0.9% 100 mL (CYKLOKAPRON) Problem List: Morbid obesity (HCC) [E66.01] Itching [L29.9] Primary osteoarthritis of right hip [M16.11] Allergies: No Known Allergies Date Verified:12/26/18 Lab Values Lab Value Units Date High Low POTA* 4.3 mmol/L 12/16/2018 5.1 3.7 JIMI* 45.8 % 12/16/2018 51.0 39.0 Progress Notes (PRE BLAIR VARGAS): Tod Tran APRN.CNP 12/16/2018 1:23 PM Signed HISTORY AND PHYSICAL EXAMINATION SERVICE DATE: 12/16/2018 SERVICE TIME: 10:00 AM PRIMARY CARE PHYSICIAN: Kj Schilling MD REASON FOR VISIT: Cherry Sauceda is a 53 year old male who is scheduled for right total hip replacement at the request of Dr. Hao Villanueva for consultation. My final recommendation will be communicated back to the requesting physician by way of shared medical record or letter. The patient has the following: There is no problem list on file for this patient. Subjective CHIEF COMPLAINT: Right hip pain HPI: Patient is a 53 year old male with c/o right hip pain. Patient states he has had problems with his hips since he a child, was in an accident. They used to just be stiff but have been worsening recently. Pain has been worsening over the last 3 months; currently an 8/10. Patient has tried physical therapy but it is very painful. Currently using mobic daily, flexeril as needed, and norco every 6 hours when awake to control the pain. Patient was found to have severe degenerative osteoarthritis and surgery recommended; patient has elected to proceed. No past medical history on file. No past surgical history on file. No family history on file. SOCIAL HISTORY: Social History Socioeconomic History Marital status: Single Spouse name: Not on file Number of children: Not on file Years of education: Not on file Highest education level: Not on file Occupational History Not on file Social Needs Financial resource strain: Not on file Food insecurity: Worry: Not on file Inability: Not on file Transportation needs: Medical: Not on file Non-medical: Not on file Tobacco Use Smoking status: Never Smoker Smokeless tobacco: Never Used Substance and Sexual Activity Alcohol use: Yes Comment: Several drinks per week Drug use: Never Sexual activity: Not on file Lifestyle Physical activity: Days per week: Not on file Minutes per session: Not on file Stress: Not on file Relationships Social connections: Talks on phone: Not on file Gets together: Not on file Attends rastafarian service: Not on file Active member of club or organization: Not on file Attends meetings of clubs or organizations: Not on file Relationship status: Not on file Intimate partner violence: Fear of current or ex partner: Not on file Emotionally abused: Not on file Physically abused: Not on file Forced sexual activity: Not on file Other Topics Concerns: Not on file Social History Narrative Not on file MEDICATIONS: Prior to Admission medications as of 12/16/18 1014 Medication Sig Last Dose Taking HYDROcodone-acetamino phen (NORCO) 5-325 mg per tablet Take 1 tablet by mouth three times daily as needed. Taking Yes hydrOXYzine HCl (ATARAX) 25 mg tablet Take 1 tablet by mouth three times daily as needed. Taking Yes cyclobenzaprine (FLEXERIL) 10 mg tablet Take 1 tablet by mouth three times daily as needed. Taking Yes meloxicam (MOBIC) 15 mg tablet Take 1 tablet by mouth once daily. Taking Yes No medication comments found. CURRENT ALLERGIES: ALLERGIES No Known Allergies REVIEW OF SYSTEMS: PAIN ASSESSMENT: Pain Pain Level: 8 Pain Location: Hip-Right Description: Aching;Sharp;Burning Duration Amount of Time: 3 Duration Units: Months Frequency: Continuous General: No weight loss, malaise or fevers. Patient has gained 20 lbs in the last few months d/t inactivity. 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 No neurological symptoms or problems. Respiratory: No history of current cough or dyspnea, or pneumonia in the past 6 weeks. No history of respiratory/pulmonary symptoms or problems. Never smoker. Cardiovascular: No history of HTN requiring medication, no history of angina, CHF, MD, cardiac surgery or stents. Denies rest pain, gangrene or revascularization/amp utation for PVD. No history of cardiovascular symptoms or problems. Denies current chest pain, palpitations, fluttering. GI: No history of GI symptoms or problems. No history of esophageal varices, recent ascites, or ETOH greater than 2 drinks per day. : No history of dysuria, frequency or incontinence,, stones or chronic kidney disease Endocrine: No history of diabetes. Has not taken steroids within the past 30 days. No history of endocrinological symptoms or problems. Hematology: No history of bleeding or clotting disorder. Pt is not taking anti-coagulation or platelet medications. No history of hematological symptoms or problems. Oncology: No history of CA metastasis, chemo within 30 days, or radiotherapy within 90 days. Has not lost 10% of body wt in 6 months. No history of oncological symptoms or problems. Psych: No history of psychiatric symptoms or problems. Musculoskeletal: See HPI Skin: Negative for lesions, rash and itching. Objective PHYSICAL EXAM: VITALS: BP 147/86 Pulse 77 Temp (Src) 98.4 (Temporal) Resp 16 Ht 6' 2 (1.88m) Wt 328 lb (148.8kg) SpO2 99% BMI 42.09 kg/(m2). General: Alert and oriented, Morbidly obese. Body mass index is 42.11 kg/m?. Skin: Normal color, no rash, no lesions. HEENT: EOM, pupils equal, round and reactive. Cardiovascular: Normal S1 AND S2, no rubs, murmurs or gallops. No JVD. Pulse regular. Lungs: Normal breath sounds, no wheezes or crackles. Abdomen: Soft, non-tender, no rigidity. Extremities: No deformity, no edema or tenderness, no joint swelling or clubbing. Neurological: Normal cognition and motor skills. Pulses: radial and posterior tibial pulses normal +2. Diagnostic tests reviewed for today's visit: [facility] 11/11/2018 Negative No recent labs in chart. Preliminary reading most recent EKG 12/16/2018: sinus rhythm with RSR, reviewed by myself. Assessment/Plan Morbid obesity (HCC) Body mass index is 42.11 kg/m?. Itching Has been happening since patient was a teenager. Takes hydroxyzine a few times a week as needed. METS: Climb a flight of stairs or walk up a hill (5.50 METs) Patient denies any chest pain or undue shortness of breath with the above physical activity. Patient has a difficult time climbing stairs d/t hip pain. ASA Class: 3 ANESTHESIA FINDINGS: Intubation History: No prior intubation (that patient remembers). Significant Anesthesia Considerations: None Only time patient has had anesthesia was for an EGD as a teenager - does not remember any issues with anesthesia. Airway Exam: General: Morbid obesity Mallampati Score is CLASS III ULBT: Class I - Lower incisors can bite the upper lip above the joel line Neck: Distance from hyoid to mentum during neck extension is at least 3 finger breaths, thick neck. Normal function. Mouth: Normal tongue size. Patient has issues with TMJ. Dentition: Intact Airway History: No prior intubation STOP BANG Score: Criteria: BMI > 35 Age over 50 (53 year old) Neck circumference > 15.75 inches Male gender Score = 4 PLAN This patient is optimally prepared for surgery pending LABS and EKG. Requested most recent labs and EKG from PCP. CONSULTS: Patient does not require consults for optimization at this time. The Following Tests/Procedures Have Been Initiated: Orders Placed This Encounter BMP Standing Status: Future CBC + DIFF Standing Status: Future IRON + TIBC Standing Status: Future FERRITIN BLD Standing Status: Future CONFIRM BLOOD TYPE Standing Status: Future Standing Expiration Date: 12/17/2019 TYPE + SCREEN,30 DAY Standing Status: Future ECG COMPLETE Standing Status: Future Standing Expiration Date: 12/17/2019 Planned Anesthetic: Per anesthesia choice Instructions Given to Patient: Patient given verbal and written preop instructions and voices comprehension and compliance. @ASSESSEND@ SIGNATURE: Tod Tran APRN.CNP PATIENT NAME: Cherry Sauceda DATE: December 16, 2018 TIME: 10:00 AM PAGER/CONTACT #: Tod Tran APRN.CNP 12/16/2018 10:28 AM Addendum PATIENT PREOPERATIVE INSTRUCTIONS Hao Villanueva MD has scheduled you for your procedure at this surgery center: [facility]: [phone] --[address] [place] [address]. You will need to call the day prior to your procedure for your arrival time. Please call between 3:30 pm and 5:00 pm. On your scheduled day of surgery, please report to desk 4b. Take the B elevator to the 4th floor and turn left. Please read below carefully for your personalized instructions. Blood Thinning Medications: - Stop NSAIDS (Ibuprofen, Advil, Aleve, Motrin, Celebrex, Mobic, etc.) 7 days before surgery, as directed by your surgeon. - Stop Aspirin 7 days before surgery, as directed by your surgeon. - Stop Vitamin E, ALL multi-vitamins, herbals and dietary supplements 14 days before surgery. - You may take Tylenol (Acetaminophen) or any of your pain medications that do not contain aspirin or NSAIDS as needed. Dietary Restrictions: - No solid food after midnight. - You may have clear liquids (water, clear juices such as apple juice or gatorade, carbonated beverages, clear tea, black coffee, jello) until 2 hours before scheduled arrival at facility. Medications: Approved medications to take the morning of surgery with a sip of water: None. - Your pain medication may cause thinning of your blood. Please see directions for Blood Thinning Medications. If you take any medications for erectile dysfunction-Cialis (Tadalafil), Levitra, Staxyn (Vardenafil) Viagra (Sildenenafil please do not take these for 48 hours before surgery. If you start any new medications after today's visit, please contact the surgeon's office. Important Reminders: - Candy, mints, and tobacco products are NOT permitted the morning of surgery. - Hearing aids, dentures and glasses may be worn the morning of surgery. - NO jewelry, body piercings, makeup, hairpins or contacts are to be worn the day of surgery. If you develop symptoms such as a fever, cold, or flu, or have other changes to your health within TWO DAYS of scheduled surgery or the morning of surgery, please contact the surgery center above. Personal Belongings: -Please have photo ID and insurance cards. -If you do not have a copy of advance directives on file with us, please bring a copy with you on the day of surgery. - Leave ALL valuables and money at home or with family members. Arrival Time for Surgery: - You MUST call [facility] the afternoon before surgery after 3:30 pm (or Saturday for Saturday surgery) for a scheduled arrival time. Please be aware that emergency situations arise, which may delay or change your surgical time. If this happens, we will notify you as soon as possible and regret any inconvenience. Tod Tran, MSN, [facility] [phone] Previous Version Letty Alonso LPN 12/16/2018 10:48 AM Signed Advance Directives discussed with patient: Advance directives obtained and scanned. Letty Alonso LPN December 16, 2018 10:47 AM Tod Tran APRN.ANTHONY 12/16/2018 10:49 AM Written Body mass index is 42.11 kg/m?. Tod Tran APRN.ANTHONY 12/16/2018 10:49 AM Written Has been happening since patient was a teenager. Takes hydroxyzine a few times a week as needed. Letty Alonso LPN 12/16/2018 2:06 PM Signed Signed release of medical information faxed to Dr. Kj Schilling requesting most recent EKG and labs. [phone] fax Tod Tran APRN.ANTHONY 12/17/2018 6:52 AM Signed Labs reviewed, okay to proceed. Progress Notes (OUTCOMES RESEARCH MAIN): Yareli Kurtz MD 12/10/2018 2:47 PM Signed IRB [id number] : Predicting, Understanding, and Speeding Recovery after Total Knee Arthroplasty (TKA) or Total Hip Arthroplasty I spoke with Cherry Sauceda, over the phone on 12/10/2018 regarding the study IRB [id number]. The patient wants to do his second surgery as soon as possible and he decided not to participate in the research project. I thanked him and wished him a speedy recovery from the surgery. Yareli Kurtz MD OUTCOMES RESEARCH PAGER [phone] [facility] Vital Signs Date Time Vital Sign Value Performing Clinician Douglasi renate 01-21-2025 20:00-0400 Body temperature 98.3 [degF] Dr. Kj Schilling MD Work Phone: [facility] 01-21-2025 20:00-0400 Diastolic blood pressure 61 mm[Hg] Dr. Kj Schilling MD Work Phone: [facility] 01-21-2025 20:00-0400 Heart rate 105 /min Dr. Kj Schilling MD Work Phone: [facility] 01-21-2025 20:00-0400 Respiratory rate 25 /min Dr. Kj Schilling MD Work Phone: [facility] 01-21-2025 20:00-0400 SaO2% (BldA) [Mass fraction] 93 % Dr. Kj Schilling MD Work Phone: [facility] 01-21-2025 20:00-0400 Systolic blood pressure 155 mm[Hg] Dr. Kj Schilling MD Work Phone: [facility] 01-21-2025 16:27-0400 Body height 187.[address] Kj Schilling MD Work Phone: [facility] 01-21-2025 16:27-0400 Body mass index (BMI) [Ratio] 44 kg/m2 Dr. Kj Schilling MD Work Phone: [facility] 01-21-2025 16:27-0400 Body weight 155.[address] Kj Schilling MD Work Phone: [facility] Encounters Encounter Date Encounter Type Care Provider Facility Start: 01-21-2025 Evaluation and management of inpatient Dr. Robert Garrett DO -Progressive Care Unit Work Phone: Start: 01-20-[address] Reji Rudolph MD -Laboratory Specimen Work Phone: Start: 06-08-2024 End: 06-08-2024 ambulatory [facility]ir Facility:[facility] Procedures Date Procedure Procedure Detail Performing Clinician Start: 01-21-2025 Urnls dip stick/tabl et reagent auto microscopy Dr. Kj Schilling MD Work Phone: Start: 01-21-2025 X-ray of chest, PA a nd lateral views Dr. Kj Schilling MD Work Phone: Start: 01-21-2025 D-dimer assay, quantitative Dr. Kj Schilling MD Work Phone: Comment on above: NORMAL D-Dimer level (<0.50) indicates no DVT or PE. Start: 01-21-[address] Kj Schilling MD Work Phone: Start: 01-20-2025 Urnls dip stick/tabl et reagent auto microscopy Dr. Kj Schilling MD Work Phone: Start: 02-04-2019 Antibody screen Comment on above: Performed By: #### C BCDIF, IRON, BMP, FERR #### [address] [address] Start: 12-16-2018 Antibody screen Comment on above: Performed By: #### T [id number] #### [place] [id number] Start: 12-16-2018 Electrocardiogram Plan of Treatment Date Care Activity Detail Author Start: 01-21-2025 CT Abdomen and Pelvi s W contrast IV [facility] Start: 01-21-2025 CT of thorax, abdome n and pelvis with contrast CT Chest, Abd, Pel w/Contrast [facility] Start: 01-21-2025 Legionella pneumophi la Ag [Presence] in Urine [facility] Start: 01-21-2025 Respiratory pathogen s DNA and RNA panel - Respiratory specimen by RAMON with probe detection [facility] Start: 01-21-2025 Streptococcus pneumo niae antigen assay [facility] Start: 01-21-2025 Hospital admission, emergency, from emergency room, medical nature [facility] Start: 01-21-2025 Verification routine [facility] Start: 01-21-2025 Admission procedure [facility] Start: 01-21-2025 End: 01-21-2025 [facility] Start: 01-21-2025 Bacteria identified in Urine by Culture Urine Culture [facility] Start: 01-20-2025 Urine culture Urine Culture [facility] Hemoglobin A1c/Hemoglobin.total in Blood [facility] Urine culture [facility] Payers Date Payer Category Payer Self-pay 2024 Unknown [id number] Unknown [id number] Unknown [id number] Social History Date Type Detail Facility Start: 01-21-2025 Tobacco smoking stat us PAIS Never smoked tobacco (finding) [facility] Start: 1965 Sex Assigned At Male [facility] Discharge summary 01-21-2025 Note Date & Type Note Facility 01-21-2025 Discharge summary [facility] Radiology Diagnostic study note 01-21-2025 Note Date & Type Note Facility 01-21-2025 Radiology Diagnostic study note [facility] Imaging Services [address] [place] [address] Chest PA and Lateral MR#: [id number] Acct: [id number] Name: CHERRY SAUCEDA Rep #: [id number] : 1965 M 59 From: Arpan Arana MD PCP: Dr. Kj Schilling MD Status: REG ER Study:Chest PA and Lateral Date of Exam: 01/21/25 Exam# [id number] Ordering Dr: Agustin Lanier DO PROCEDURE: CHEST PA AND LATERAL 01/21/2025 REASON FOR EXAM: SHORTNESS OF BREATH TECHNIQUE: Procedure Code: RADCXR Modality: DX Procedure: CHEST PA AND LATERAL COMPARISON: None. FINDINGS: Lungs/Pleura: No pneumothorax or pleural effusion. Bilateral patchy and reticular airspace opacities may be related to pulmonary edema, versus an infectious/inflammatory process. Heart/Mediastinum: Within normal limits. Bones/Soft tissues: Multilevel degenerative changes of the spine. RAD/Chest PA and Lateral IMPRESSION: Bilateral patchy and reticular airspace opacities may be related to pulmonary edema, versus an infectious/inflammatory process depending on the clinical context. No pleural effusions. Reading Location: [facility] CC: Dr. Agustin Ferris DO; Dr. Kj Schilling MD ~ Veterans Service Officer: Signed [facility] Discharge summary 01-21-2025 Note Date & Type Note Facility 01-21-2025 Discharge summary Note Date/Time January 21, 2025 7:32pm [facility] Medical Records Department [address] [place] [address] Emergency Department Summary 01/21/25 MR#: [id number] Acct: [id number] Name: CHERRY SAUCEDA Rep #:[id number] : 1965 59 From: Agustin Bowser ggett DO PCP: Dr. Kj Schilling MD Status :REG ER Location: ED HPI History of Present Illness Chief Complaint: Shortness of Breath Narrative Narrative: Chief complaint and HPI: 59-year-old male with past medical history of sleep apnea presents for evaluation of chronic shortness of breath, peripheral edema, and urinary incontinence/frequency. Patient states for the past several months he has been having progressively worsening exertional shortness of breath. States he has a chronic cough with occasional clear/yellow phlegm. No history of COPD. Non-smoker. States for several months he has been having bilateral lower extremity edema which his PCP attributes to his sleep apnea. He does not use a CPAP and is scheduled to have a sleep study. Also endorses urinary incontinence and frequency over the past several days. No history of CHF. He denies any fever, chest pain, abdominal pain, nausea, vomiting, diarrhea, constipation, back pain. Review of systems: See HPI Medications: As listed on the chart Allergies: As listed on the chart PFSH: Per chart Vital signs: As listed on the chart. Reviewed. Physical exam: Gen: A&O x3, NAD Head: Normocephalic, atraumatic Eyes: No sclera icterus, conjunctiva clear, PERRL ENT: Moist mucous membranes Neck: Trachea midline, No JVD CV: Tachycardic, regular rhythm, no murmurs, bilateral nonpitting peripheral edema Resp: Lungs CTA BL but diminished in the bilateral bases, no w/r/c GI: Large body habitus, abd soft, non-distended, non-tender, no r/r/g Musc: Full ROM, no deformity Skin: Warm, dry Neuro: Alert, oriented, grossly intact, sensation intact Psych: Cooperative, appropriate mood and affect [facility] Medical History (Updated 01/21/25 @ 17:18 by Linda Ramirez) Diverticulitis Sleep apnea Home Medications ?Medication ?Instructions ?Recorded ?Last Taken ?Type hydroxyzine HCl 50 mg tablet 50 mg PO QHS PRN itching 01/21/25 Unknown History Allergy/AdvReac Type Severity Reaction Status Date / Time No Known Allergies Allergy Verified 01/21/25 16:30 Family History no significant family his Surgical History (Updated 01/21/25 @ 16:55 by Linda Ramirez) History of hip replacement Social History (Updated 01/21/25 @ 16:55 by Linda Ramirez) current occupational status: employed Smoking Status: Never smoker EXAM Physical Exam Const Vital Signs: 01/21/25 16:27 01/21/25 17:24 01/21/25 17:26 Temperature 98.8 F Temperature Source Temporal Pulse Rate 109 H 104 H Respiratory Rate 22 H 20 H Respiratory Effort Short of Breath Respiratory Depth Normal Respiratory Pattern Tachypnea Blood Pressure 152/96 H Blood Pressure Mean 114 Pulse Ox 96 94 Oxygen Delivery Method Room Air Room Air 01/21/25 17:30 01/21/25 17:30 01/21/25 17:45 Temperature 99.3 F H Temperature Source Oral Pulse Rate 102 H 102 H 105 H Respiratory Rate 21 H 20 H 27 H Respiratory Effort Respiratory Depth Respiratory Pattern Blood Pressure 132/81 H 132/81 H 135/113 H Blood Pressure Mean 96 98 121 Pulse Ox 93 94 94 Oxygen Delivery Method Room Air 01/21/25 18:00 01/21/25 18:15 01/21/25 18:30 Temperature Temperature Source Pulse Rate 100 100 97 Respiratory Rate 26 H 21 H 26 H Respiratory Effort Respiratory Depth Respiratory Pattern Blood Pressure 112/85 H 140/80 H 134/86 H Blood Pressure Mean 90 96 100 Pulse Ox 92 92 92 Oxygen Delivery Method 01/21/25 18:45 01/21/25 19:00 01/21/25 19:00 Temperature 99.1 F Temperature Source Oral Pulse Rate 101 H 101 H 101 H Respiratory Rate 20 H 26 H 20 H Respiratory Effort Respiratory Depth Respiratory Pattern Blood Pressure 138/89 H 140/87 H 144/131 H Blood Pressure Mean 102 104 137 Pulse Ox 93 94 92 Oxygen Delivery Method Room Air 01/21/25 19:15 Temperature 98.3 F Temperature Source Pulse Rate 104 H Respiratory Rate 18 Respiratory Effort Respiratory Depth Respiratory Pattern Blood Pressure 135/84 H Blood Pressure Mean 101 Pulse Ox 94 Oxygen Delivery Method MDM MDM MDM Narrative Medical decision making narrative: 59-year-old male with past medical history of sleep apnea presents for evaluation of chronic shortness of breath, peripheral edema, and urinary incontinence/frequency. Patient states for the past several months he has been having progressively worsening exertional shortness of breath. States he has a chronic cough with occasional clear/yellow phlegm. States for several months he has been having bilateral lower extremity edema which his PCP attributes to his sleep apnea. Also endorses urinary incontinence and frequency over the past several days. Differential diagnosis includes but is not limited to CHF exacerbation, pneumonia, untreated EDOUARD, arrhythmia, ACS, PE, UTI. Respiratory/cardiac workup including UA. CBC with leukocytosis of 22.7. No anemia. Platelets unremarkable. D-dimer unremarkable. CMP consistent with mild dehydration. Creatinine is 1.26. Previous creatinine in May was normal. Unknown if this is acute or chronic. No transaminitis. Troponin unremarkable. BNP unremarkable. UA positive for UTI. Urine culture ordered. Rocephin ordered. X-ray consistent with pulmonary edema however cannot officially rule out infection given that patient endorses a yellow phlegm will add on azithromycin along with the Rocephin for UTI which will cover community-acquired pneumonia as well as UTI. On reevaluation patient is mildly tachycardic. I do feel that he would benefit from admission for IV antibiotics and further workup of possible pulmonary edema. Lasix ordered. Patient discussed with Dr. Garrett who accepted admission. Patient updated of the results and the plan. He confirmed understanding. EKG: Interpreted by me/EM physician: EKG shows sinus tachycardia with nonspecific ST changes. Heart rate 105. Diagnostic: Interpreted by me/EM physician: Chest x-ray shows pulmonary edema concern for possible pneumonia. No large effusion or consolidation. No cardiomegaly. Radiology in agreement Impression: 1. UTI 2. Pulmonary edema 3. Possible pneumonia 4. Bilateral peripheral edema 5. Renal insufficiency, acute versus chronic Lab Data Labs: Laboratory Results - last 24 hr 01/21/25 01/21/25 16:44 17:49 WBC 22.7 H RBC 5.51 Hgb 15.0 Hct 44.5 MCV 80.8 MCH 27.2 MCHC 33.7 RDW Std Deviation 42.5 RDW Coeff of Martin 14.6 Plt Count 355 MPV 9.8 Immature Gran % (Auto) 1.000 H Neut % (Auto) 73.2 H Lymph % (Auto) 12.8 L [place] % (Auto) 12.1 H Eos % (Auto) 0.3 Baso % (Auto) 0.6 Differential Comment SCANNED Platelet Estimate ADEQUATE D-Dimer Quant (PE/DVT) 0.48 Sodium 132 L Potassium 4.0 Chloride 96 L Carbon Dioxide 21.0 Anion Gap 15 BUN 13 Creatinine 1.26 H Estim Creat Clear Calc 100.83 Est GFR (MDRD) Non-Af 66 BUN/Creatinine Ratio 10.5 Glucose 180 H Calcium 9.2 Total Bilirubin 1.41 H AST 29 ALT 29 Alkaline Phosphatase 92 Troponin T High Sens 15 NT pro BNP II 88 Total Protein 8.8 H Albumin 4.2 Globulin 4.6 H Albumin/Globulin Ratio 0.9 Urine Color Flores Urine Clarity Turbid Urine pH 5.0 Ur Specific Staples 1.025 Urine Protein 100 H Urine Glucose (UA) 50 H Urine Ketones 15 H Urine Occult Blood 150 H Urine Nitrite Positive H Urine Bilirubin 1 H Urine Urobilinogen 4 H Ur Leukocyte Esterase 500 H Urine RBC 0-5 SEEN Urine WBC 10-25 SEEN Ur Squamous Epith Cells 5-10 SEEN Amorphous Sediment 1+ Urine Bacteria 4+ Hyaline Casts 0-5 SEEN Fine Granular Casts 0-5 SEEN Coarse Granular Casts 0-5 SEEN Urine Mucus 1+ Radiography Diagnostic Testing: Clinical Impression(s) from Imaging Studies Chest X-Ray 01/21/25 16:58 IMPRESSION: Bilateral patchy and reticular airspace opacities may be related to pulmonary edema, versus an infectious/inflammatory process depending on the clinical context. No pleural effusions. Reading Location: [facility] Discharge Plan Triage Chief Complaint: Shortness of Breath ED Provider: Agustin Ferris Dx/Rx/DC Orders Prescriptions: No Action hydroxyzine HCl 50 mg tablet 50 mg PO QHS PRN (Reason: itching) Primary Care Provider: jK Schilling Referrals: Kj Schilling MD [Primary Care Provider] - Print Language: Fijian What to do if you have Problems For any increased pain, shortness of breath, bleeding, nausea or vomiting, chestpain, or any unexpected problems, contact your Primary Care Provider. Call [facility] ([phone]) or report to the closest Emergency Room. Call 911 if necessary. 01/21/251931 <Electronically signed by Agustin Ferris DO> Cosigner Signature (if applicable): CC: Dr. Kj Schilling MD ~ Signed [facility] Work Phone: Evaluation note Note Date & Type Note Facility Evaluation note No assessment information availa ble [facility] Work Phone: Reason for referral (narrative) Note Date & Type Note Facility Reason for referral (narrative) No reason for referral information available [facility] Work Phone: Summary Purpose Family History No Family History Records FoundNo Family History Records Found Advance Directives Advance Directive Response Recorded Date/ Time Do you have a Healthcare Power of Online Community Manager? No January 21, 2025 4:50pm Procedure Findings Note HNO ID: [id number] Author: Karli Villanueva Service: Orthopaedic Surgery Author Type: Physician Type: Operative Report Filed: 12/26/2018 10:54 AM Note Text: OPERATIVE NOTE PATIENT NAME: Cherry Sauceda LOG ID: [id number] Surgery Date: 12/26/2018 Surgeon(s) and Department Clinician(s): Surgeon(s) and Role: * Hao Villanueva - Macey * Carlos Mazariegos - Resident - Assisting Physician Department Clinician: Baljeet Reza (Pa Pa) Procedure(s): Procedure(s) (LRB): ARTHROPLASTY REPLACE JOINT TOTAL HIP (Right) Modifier: I am adding a 22 modifier due to the patients morbid obesity with BMI > 35 This required additional assisting, with my Physician's Department Clinician. This also required an additional ortho control systems technician to help position and prep the patient, as well as deep retractors for exposure and more time to accomplish the case safely. BMI: Estimated body mass index is 42.11 kg/m? as calculated from the following: Height as of 12/16/18: 188 cm (6' 2). Weight as of 12/16/18: 148.8 kg (328 lb). (more content not included)... Note HNO ID: [id number] Author: Nash Mazariegos Service: Orthopaedic Surgery Author Type: Resident Type: Brief Op Note Filed: 12/26/2018 10:08 AM Note Text: BRIEF OPERATIVE / PROCEDURE NOTE LOG ID: [id number] Surgery/Procedure Date: 12/26/2018 Incision/Procedure Start Time: 8:29 AM Incision Close/Procedure End Time: 10:15 AM Surgeon(s)/Proceduralist(s) and Department Clinician(s): Surgeon(s) and Role: * Hao Villanueva - Primary * Carlos Mazariegos - Resident - Assisting Procedure(s): Procedure(s) (LRB): ARTHROPLASTY REPLACE JOINT TOTAL HIP (Right) Anesthesia: General Approach: Posterior Findings: OA Estimated Blood Loss: 100 mls Specimens: None Complications: None Pre-Op/Pre-Procedure Diagnosis: Primary osteoarthritis of right hip [M16.11] Primary osteoarthritis of right hip [M16.11] Post-Op/Post-Procedure Diagnosis: Primary osteoarthritis of right hip [M16.11] Primary osteoarthritis of right hip [M16.11] Weight Bearing Status: Weight Bearing As Tolerated SIGNATURE: MD SANGITA RM (more content not included)... Note HNO ID: [id number] Author: Karli Villanueva Service: Orthopaedic Surgery Author Type: Physician Type: Operative Report Filed: 02/19/2019 11:37 AM Note Text: OPERATIVE NOTE PATIENT NAME: Cherry Sauceda LOG ID: [id number] Surgery Date: 02/19/2019 Surgeon(s) and Department Clinician(s): Surgeon(s) and Role: * Hao Villanueva - Primary * Carlos Mzaariegos - Resident - Assisting Physician Department Clinician: Suzanne Allen (Pa)) [facility] Outreach Worker: Lennie Davila Procedure(s): Procedure(s) (LRB): ARTHROPLASTY REPLACE JOINT TOTAL HIP (Left) Modifier: I am adding a 22 modifier due to the patients morbid obesity with BMI > 35 This required additional assisting, with my Physician's Department Clinician. This also required an additional ortho control systems technician to help position and prep the patient, as well as deep retractors for exposure and more time to accomplish the case safely. BMI: Estimated body mass index is 41.34 kg/m? as calculated from the following: Height as of 02/04/19: 188 cm ( (more content not included)... Note HNO ID: [id number] Author: Nash Mazariegos Service: Orthopaedic Surgery Author Type: Resident Type: Brief Op Note Filed: 02/19/2019 11:55 AM Note Text: BRIEF OPERATIVE / PROCEDURE NOTE LOG ID: [id number] Surgery/Procedure Date: 02/19/2019 Incision/Procedure Start Time: 10:18 AM Incision Close/Procedure End Time: 12:05 PM Surgeon(s)/Proceduralist(s) and Department Clinician(s): Surgeon(s) and Role: * Hao Villanueva - Primary * Carlos Mazariegos - Resident - Assisting Procedure(s): Procedure(s) (LRB): ARTHROPLASTY REPLACE JOINT TOTAL HIP (Left) Anesthesia: Spinal Approach: Posterior Findings: OA Estimated Blood Loss: 100 mls Specimens: None Complications: None Implant: Implant Name Type Inv. Item Serial No. Section Supervisor Lot No. LRB No. Used HEAD V40 36MM 0MM OFFSET TAPER BIOLOX DELTA FEMORAL HIP - [id number] Joint HEAD V40 36MM 0MM OFFSET TAPER BIOLOX DELTA FEMORAL HIP [facility] [id number] Left 1 STEM ACCOLADE II 4 132D FEMORAL - [id number] Joint STEM ACCOLADE II 4 132D FEMORAL (more content not included)... Note HNO ID: [id number] Author: Thomas Walker Service: Orthopaedic Surgery Author Type: Resident Type: Discharge Summary Filed: 12/27/2018 8:19 AM Note Text: ORTHOPEDIC SURGERY DISCHARGE SUMMARY ADMISSION DATE: 12/26/18 DISCHARGE DATE: 12/27/2018 Attending Physician: Hao Villanueva Reason for Hospitalization: R CLOVIS Admitting Diagnosis: Hip Advanced Degenerative Joint Disease Discharge Diagnosis: Hip Advanced Degenerative Joint Disease Additional Diagnoses: ACTIVE PROBLEM LIST Morbid Obesity (Hcc) Itching Surgeries During Hospitalization: Procedure(s) (LRB): ARTHROPLASTY REPLACE JOINT TOTAL HIP (Right) Consultations: Physical Therapy Case Management Internal Medicine Hospital Course: The patient is a 53 year old male who has been followed by Dr. Hao Villanueva MD in clinic for R hip pain. It was determined he would benefit from surgery. The procedure, its risks, benefits, and potential complications were discussed in detail with the patient prior to surgery. Understanding of all (more content not included)... Note HNO ID: [id number] Author: Thomas Mantilla Service: Orthopaedic Surgery Author Type: Resident Type: Discharge Summary Filed: 02/20/2019 8:17 AM Note Text: ORTHOPEDIC SURGERY DISCHARGE SUMMARY ADMISSION DATE: 02/19/19 DISCHARGE DATE: February 20, 2019 Attending Physician: Hao Villanueva Admitting Diagnosis: Hip Advanced Degenerative Joint Disease Discharge Diagnosis: As above Surgeries During Hospitalization: Procedure(s) (LRB): ARTHROPLASTY REPLACE JOINT TOTAL HIP (Left) Consultations: Physical Therapy Case Management Internal Medicine Hospital Course: The patient is a 53 year old male who has been followed by Dr. Hao Villanueva MD in clinic for joint pain. It was determined he would benefit from surgery. The procedure, its risks, benefits, and potential complications were discussed in detail with the patient prior to surgery. Understanding of all topics was conveyed by the patient, and consent was given for surgery. The patient was electively admitted to the [facility] (more content not included)... Hospital Course Note HNO ID: [id number] Author: Thomas Walker Service: Orthopaedic Surgery Author Type: Resident Type: Discharge Summary Filed: 12/27/2018 8:19 AM Note Text: ORTHOPEDIC SURGERY DISCHARGE SUMMARY ADMISSION DATE: 12/26/18 DISCHARGE DATE: 12/27/2018 Attending Physician: Hao Villanueva Reason for Hospitalization: R CLOVIS Admitting Diagnosis: Hip Advanced Degenerative Joint Disease Discharge Diagnosis: Hip Advanced Degenerative Joint Disease Additional Diagnoses: ACTIVE PROBLEM LIST Morbid Obesity (Hcc) Itching Surgeries During Hospitalization: Procedure(s) (LRB): ARTHROPLASTY REPLACE JOINT TOTAL HIP (Right) Consultations: Physical Therapy Case Management Internal Medicine Hospital Course: The patient is a 53 year old male who has been followed by Dr. Hao Villanueva MD in clinic for R hip pain. It was determined he would benefit from surgery. The procedure, its risks, benefits, and potential complications were discussed in detail with the patient prior to surgery. Understanding of all (more content not included)... Note HNO ID: [id number] Author: Thomas Mantilla Service: Orthopaedic Surgery Author Type: Resident Type: Discharge Summary Filed: 02/20/2019 8:17 AM Note Text: ORTHOPEDIC SURGERY DISCHARGE SUMMARY ADMISSION DATE: 02/19/19 DISCHARGE DATE: February 20, 2019 Attending Physician: Hao Villanueva Admitting Diagnosis: Hip Advanced Degenerative Joint Disease Discharge Diagnosis: As above Surgeries During Hospitalization: Procedure(s) (LRB): ARTHROPLASTY REPLACE JOINT TOTAL HIP (Left) Consultations: Physical Therapy Case Management Internal Medicine Hospital Course: The patient is a 53 year old male who has been followed by Dr. Hao Villanueva MD in clinic for joint pain. It was determined he would benefit from surgery. The procedure, its risks, benefits, and potential complications were discussed in detail with the patient prior to surgery. Understanding of all topics was conveyed by the patient, and consent was given for surgery. The patient was electively admitted to the [facility] (more content not included)... Chief Complaint and Reason for Visit Chief Complaint Admit Date CAP WITH UTI W/CONCERN FOR SEPSIS Septem 2024 7:26pm Additional Source Comments (unrecognized sect ion and content) No Status Records FoundNo Status Records Found INFORMATION SOURCE (unrecogn ized section and content) DATE CREATED AUTHOR 03/04/2019 [facility] l DATE CREATED AUTHOR AUTHOR'S ORGANIZ ATION 06/29/2024 [facility] Care Teams (unrecognized sec tion and content) Team Status: Active Member Role/Relationship Status Dates Dr. Kj Schilling MD Primary Care Provider Acti ve Team Status: Active Member Role/Relationship Status Dates Dr. Kj Schilling MD Primary Care Provider Acti ve Start: January 20, 2025 Dr. Reji Rudolph MD Attending Provider Active St art: January 20, 2025 Team Status: Active Member Role/Relationship Status Dates Dr. Kj Schilling MD Primary Care Provider Acti ve Start: January 21, 2025 Dr. Agustin Ferris DO Emergency Provider Activ e Start: January 21, 2025 Dr. Robert Garrett DO Admit Provider Active Start: January 21, 2025 Dr. Robert Garrett DO Attending Provider Active Start: January 21, 2025 Goals (unrecognized section and content) Goals may be documented in a n alternate section FOR RECORDS PERTAINING TO PATIENTS WHO ARE OR HAVE BEEN ENROLLED IN A CHEMICAL DEPENDENCY/SUBSTANCEABUSE PROGRAM, SOME INFORMATION MAY BE OMITTED. This clinical summary was aggregated from multiple sources. Caution should be exercised in using it in the provision of clinical care. This summary normalizes information from multiple sources, and as a consequence, information in this document may materially change the coding, format and clinical context of patient data. In addition, data may be omitted in some cases. CLINICAL DECISIONS SHOULD BE BASED ON THE PRIMARY CLINICAL RECORDS. [facility]. provides no warranty or guarantee of the accuracy or completeness of information in this document.
[2025-01-21 22:33] LABS: CRP 160.00 mg/L (0.0-3.0); Procalcitonin 0.14 ng/mL (<=0.10)
[2025-01-22 03:00] VITALS: PULSE 67
[2025-01-22 03:12] VITALS: RESP 19; O2SAT 74
[2025-01-22 03:16] VITALS: BP 135/82; PULSE 67; RESP 18; TEMP 36.3; O2SAT 95
[2025-01-22 05:49] LABS: Hematocrit 42.6 % (40-54); Hemoglobin 14.1 g/dL (13.0-16.5); Mean Corp Hgb Conc 33.1 g/dL (32-36); Mean Corpuscular Volume 81.3 fL (80-94); Mean Platelet Vol. 10.3 fl (6.2-12.0); Platelet Count 291 K/mm3 (150-450); RBC Distribution Width CV 14.4 % (11.6-14.6); RBC Distribution Width SD 42.5 fl (35.1-43.9); Red Blood Count 5.24 M/mm3 (4.6-6.2); White Blood Count 15.5 K/mm3 (4.4-11.0)
[2025-01-22 06:29] LABS: Anion Gap 14 (5-15); BUN 16 mg/dL (4-19); BUN/Creat Ratio 16.3 RATIO (10-20); Calcium,Total 8.8 mg/dL (7.6-11.0); Carbon Dioxide 21.9 mmol/L (21.0-32.0); Chloride 97 mmol/L (98-108); Estimated Creatinine Clearance 128.49 ml/min (50-250); Glucose 251 mg/dL (70-99); Potassium 4.1 mmol/L (3.3-5.1)
[2025-01-22] MEDS: 0.9% Saline Lock 10 ML Syringe IV (06:38)
[2025-01-22 07:10] VITALS: O2SAT 94
[2025-01-22 09:00] VITALS: BP 147/87; PULSE 95; RESP 25; TEMP 36.8; O2SAT 93
[2025-01-22] MEDS: Ceftriaxone 2 GM in 0.9% Normal Saline (50mL MB+) 50 ML IV (09:03)
--- NOTE | 2025-01-22 09:50 | CASEMGMT ---
RN CM Face to Face with patient for initial transition planning/care coordination assessment. RN CM introduced self and role at [facility]. Patient lying in bed, alert and oriented. Patient willing to participate in assessment and is able to answer all questions appropriately. Care providers, pharmacy, and demographics verified. 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 Insurance: [employer] Prescription Benefit: yes Living Will/HPOA: none LNOK: Living Arrangements: Patient lives with in a 2 story home. Patient is independent and able to ambulate stairs. Transportation: self, DME/HHC: Patient has access to cane and walker at home. Patient has had [facility] in the past. Patient wishes to discharge home, denies need for home health at this time. Patient states he has no further needs or concerns at this time. CM to follow for discharge planning needs that may arise. Disposition Plan: Patient to discharge home with family support and follow-up plans in place. Marce VELEZ, RN, CM
[2025-01-22] MEDS: Azithromycin 500 MG in 0.9% Normal Saline (250mL Bag) 250 ML 250 MG IV (10:26)
--- NOTE | 2025-01-22 10:42 | PN.HOSP_ITS ---
Subjective Subjective White count is improved and he is feeling better Objective Data Objective Data Vital Signs: Vital Signs Temp Pulse Resp BP Pulse Ox O2 Del Method O2 Flow Rate 97.4 F L 67 18 135/82 H 95 Nasal Cannula 2 01/22/25 03:16 01/22/25 03:16 01/22/25 03:16 01/22/25 03:16 01/22/25 03:16 01/22/25 03:18 01/22/25 03:18 Oxygen Flow Rate (L/min) 2 Oxygen Delivery Method Nasal Cannula Weight: 337 lb 8.443 oz Body Mass Index (BMI) 43.3 Intake & Output: Intake and Output for Last 24 Hours 01/21/25 01/22/25 01/23/25 03:59 03:59 03:59 Intake Total 300 / 300 50 / 50 Output Total 300 / 300 Balance 0 / 0 50 / 50 Lab / Micro Data 01/22/25 04:58 01/22/25 04:58 Labs: Laboratory Results - last 24 hr 01/21/25 16:44: WBC 22.7 H, RBC 5.51, Hgb 15.0, Hct 44.5, MCV 80.8, MCH 27.2, MCHC 33.7, RDW Std Deviation 42.5, RDW Coeff of Martin 14.6, Plt Count 355, MPV 9.8, Immature Gran % (Auto) 1.000 H, Neut % (Auto) 73.2 H, Lymph % (Auto) 12.8 L , [place] % (Auto) 12.1 H, Eos % (Auto) 0.3, Baso % (Auto) 0.6, Absolute Neuts (auto) 16.6 H, Absolute Lymphs (auto) 2.89, Differential Comment SCANNED, Platelet Estimate ADEQUATE, ESR 70 H, D-Dimer Quant (PE/DVT) 0.48, Sodium 132 L, Potassium 4.0, Chloride 96 L, Carbon Dioxide 21.0, Anion Gap 15, BUN 13, C reatinine 1.26 H, Estim Creat Clear Calc 100.83, Est GFR (MDRD) Non-Af 66, BUN/Creatinine Ratio 10.5, Glucose 180 H, Hemoglobin A1c 8.0 H, Calcium 9.2, T otal Bilirubin 1.41 H, AST 29, ALT 29, Alkaline Phosphatase 92, Troponin T High Sens 15, NT pro BNP II 88, Total Protein 8.8 H, Albumin 4.2, Globulin 4.6 H, Albumin/Globulin Ratio 0.9 01/21/25 17:49: Urine Color Flores, Urine Clarity Turbid, Urine pH 5.0, Ur Specific [place] 1.025, Urine Protein 100 H, Urine Glucose (UA) 50 H, Urine Ketones 15 H, Urine Occult Blood 150 H, Urine Nitrite Positive H, Urine Bilirubin 1 H, Urine Urobilinogen 4 H, Ur Leukocyte Esterase 500 H, Urine RBC 0- 5 SEEN, Urine WBC 10-25 SEEN, Ur Squamous Epith Cells 5-10 SEEN, Amorphous Sediment 1+, Urine Bacteria 4+, Hyaline Casts 0-5 SEEN, Fine Granular Casts 0-5 SEEN, Coarse Granular Casts 0-5 SEEN, Urine Mucus 1+ 01/21/25 18:56: Troponin T Hi Sens 2 Hr 13, C-React Prot Ext Range 160.00 H, P rocalcitonin 0.14 H 01/22/25 04:58: WBC 15.5 H, RBC 5.24, Hgb 14.1, Hct 42.6, MCV 81.3, MCH 26.9 L, MCHC 33.1, RDW Std Deviation 42.5, RDW Coeff of Martin 14.4, Plt Count 291, MPV 10.3, Sodium 133, Potassium 4.1, Chloride 97 L, Carbon Dioxide 21.9, Anion Gap 14, BUN 16, Creatinine 0.98, Estim Creat Clear Calc 128.49, Est GFR (MDRD) Non- Af 89, BUN/Creatinine Ratio 16.3, Glucose 251 H, Calcium 8.8 01/22/25 06:41: POC Glucose 328 H Micro: Microbiology 01/21/25 21:00 Mucosa - Nasopharyngeal Respiratory Panel (PCR) - Final Rhinovirus 01/21/25 21:00 Urine, Random Legionella Antigen - Final 01/21/25 21:00 Urine, Random Streptococcus pneumoniae Antigen (M - Final Radiography Diagnostic Testing: Radiology Impression Chest X-Ray 01/21/25 16:58 IMPRESSION: Bilateral patchy and reticular airspace opacities may be related to pulmonary edema, versus an infectious/inflammatory process depending on the clinical context. No pleural effusions. Reading Location: [facility] Chest/Abdomen/Pelvis CT 01/21/25 20:20 IMPRESSION: 1. Diffuse chronic interstitial lung disease. No definite focal consolidation. 2. Hepatomegaly and moderate diffuse hepatic steatosis. 3. Diffuse colonic diverticulosis with mild diverticulitis involving the proximal sigmoid colon. Reading Location: [facility] Physical Exam Narrative General: Alert, Oriented x3, Cooperative, No apparent distress HEENT: Atraumatic, PERRLA, EOMI, Normocephalic Oral: Moist Mucosa Neck: Supple, No JVD Lungs: Diminished, Normal air movement, No rhonchi, No wheeze, No rales Cardiovascular: Regular rate, Regular Rhythm, Normal S1, Normal S2, No murmurs Abdomen: Soft, Non Tender, Non-Distended, No Hepato-splenomegaly Extremities: No edema, Capillary Refill Less than 3 Seconds Skin: No rashes, No breakdown Musculoskeletal: No Tenderness to Palpation of Joints or Extremities Neurological: No focal neurological deficits, Motor Exam 5/5 strength throughout, Sensory exam intact to light touch and pain Psych/Mental Status: Normal Affect, Appropriate
[2025-01-22 10:54] VITALS: O2SAT 95
--- NOTE | 2025-01-22 11:48 | DCINST_ITS ---
Discharge Instructions DC O2, CPAP, BIPAP needs Home O2 Discharge instructions: No Dressing / Incision Discharge Activity: Return to Normal Activity Dressing / Incision Call your doctor if you observe: Fever of 101 or Higher, Shortness of breath, Dizziness, Fainting spells, Swelling in the ankles, Chest pain and Increased palpitations (irregular heartbeat) Follow Up Care Test Results: Test results from this visit will be discussed in further detail at your follow- up appointment, if applicable. Discharge Plan Admission Admit Date/Time: 01/21/25 19:26 Attending Provider: Sy Stewart Primary Care Provider: Kj Schilling Consulting Providers: Robert Garrett Instructions Patient Instructions: A1C, Diabetes and Drinking Alcohol, Diabetes Exercise Starting, Diabetes Blood Glucose Check Ch, Diabetes Food Tips Ch, Diabetes Carbs Fats Protein Discharge Orders/Prescriptions Prescriptions: New azithromycin 500 mg tablet 500 mg PO DAILY 2 Days Qty: 2 0RF Rx Instructions: start on day 2 of therapy cefdinir 300 mg capsule 300 mg PO BID Qty: 10 0RF Rx Instructions: Start morning of 01/23/2025 metformin [Glucophage XR] 500 mg tablet extended release 24 hr 500 mg PO DAILY Qty: 30 3RF Continued hydroxyzine HCl 50 mg tablet 12.5 mg PO QHS PRN (Reason: itching) Patient Comments: pt states that he take 1/4 of a pill PRN for itching Referrals / Follow Up: Kj Schilling MD [Primary Care Provider] - Within 1 Week Disposition Disposition (needs filled in before D/C Order can be placed): Home, Self Care
--- NOTE | 2025-01-22 12:37 | PHA.DC.COU.R ---
Pharmacy [facility] has performed discharge medication counseling for this patient. The patient was counseled on the following discharge medications and changes in medications for homegoing review. - Metformin 500 mg ER tablet, Cefdinir 300 mg capsule, Azithromycin 500 mg tablet. - Also discussed new type 2 diabetes diagnosis, other medications and non-pharmacologic treatments, monitoring, low blood sugar symptoms and treatments. The Reason for Use, instructions for use, and potential side effects were reviewed for all new medications. The patient's questions regarding all of their medications were answered. The patient was able to verbally demonstrate an understanding of their discharge medications. Medications at Discharge Home Medications hydroxyzine HCl 50 mg tablet 12.5 mg PO QHS PRN itching 01/21/25 azithromycin 500 mg tablet 500 mg PO DAILY 2 days #2 tabs 01/22/25 cefdinir 300 mg capsule 300 mg PO BID #10 caps 01/22/25 metformin 500 mg tablet,extended release 24 hr (Glucophage XR) 500 mg PO DAILY #30 tabs 01/22/25
--- NOTE | 2025-01-22 13:07 | CASEMGMT ---
Patient has order for discharge. Patient will need glucometer at discharge. Scritp received and provided in discharge packet. RN CM in to discuss needs at discharge and updated regarding script for glucometer. Patient denies further needs or concerns. Patient had no further questions or concerns.
--- NOTE | 2025-01-22 15:30 | DS.PCM_ITS ---
Providers Date of Admission: 01/21/25 Primary Care Physician: Dr. Kj Schilling MD Reason For Visit: CAP WITH UTI W/CONCERN FOR SEPSIS Diagnosis Discharge Diagnosis (1) Shortness of breath: Status: Acute Code(s): R06.02 - Shortness of breath Medications at Discharge Home Medications hydroxyzine HCl 50 mg tablet 12.5 mg PO QHS PRN itching 01/21/25 azithromycin 500 mg tablet 500 mg PO DAILY 2 days #2 tabs 01/22/25 cefdinir 300 mg capsule 300 mg PO BID #10 caps 01/22/25 lisinopril 5 mg tablet 5 mg PO DAILY #30 tabs 01/22/25 metformin 500 mg tablet,extended release 24 hr (Glucophage XR) 500 mg PO DAILY #30 tabs 01/22/25 Hospital Course Operations None Procedures None Summary of Care Provided Minutes Spent on Discharge: 42 Hospital Course: Per HPI: CHERRY SAUCEDA, is a 59 M who presented to [facility] ED on 01/21/2025 with progressive shortness of breath. Patient has minimal medical history, is not on any medications regularly at home. He presented today with progressively worsening shortness of breath over the past few months. Notes that symptoms became more noticeable in October of this year. He was treated with antibiotics at the time with some degree of improvement, but it has now worsened steadily over the past few months and has gotten to the point where he gets short of breath and winded with minimal exertion, so he came in for further evaluation. In the ED he was mildly tachycardic to the 100s, had low-grade fever to 99.3 F and mild hypertension to the 150s systolic. He was satting in the 92 to 94% range on room air at rest. Labs notable for WBC count 22 with neutrophil predominance, sodium 132, chloride 96, creatinine 1.26 (baseline around 1.0), glucose 180, T. bili 1.41. UA showed positive nitrites, 500 leukocyte esterase, 4+ bacteria. Chest x-ray showed bilateral patchy and reticular airspace opacities of unclear etiology. CT chest abdomen pelvis with IV contrast showed diffuse chronic interstitial lung disease and hepatomegaly with moderate diffuse hepatic steatosis. Given his presentation, hospitalist was contacted for admission. I saw the patient at bedside in the ED, was present. Patient was sitting comfortably at the edge of the bed, conversing normally and in no acute distress. He had good energy level during our encounter. Denied any shortness of breath at rest but notes that he does get winded with minimal exertion. He has had some lower extremity swelling but notes this is chronic for him. He reports mild burning with urination. Denies any prior history of UTIs or prostate issues. Reports generalized fatigue and low-grade fever. No other acute concerns currently. Will be admitted for further management. Hospital Course: 1. Urinary tract infection secondary to E. coli with progressive shortness of breath on ambulation due to rhinovirus?59-year-old male presents to the hospital increasing shortness of breath and burning with urination. His primary care doctor ordered a urine sample on 01/20/2025 which resulted today with 80-100,000 CFU's of E. coli that was pansensitive. He is feeling much better today and was able to ambulate without requiring any oxygen. He did test positive for rhinovirus however he also has new onset diabetes therefore I discontinued steroids as he had such marked improvement today. Will plan to discharge on cefdinir 300 mg p.o. twice daily for 5 more days which will be 7 days of total antibiotic therapy and then 2 more days of azithromycin. I discussed with him the plan for possible discharge and he expressed understanding of the risks and benefits of going home and would like to go home today. I will have him follow- up with his PCP in 3 to 5 days for monitoring. If he continues to have shortness of breath with ambulation would benefit from an outpatient pulmonology evaluation for PFTs. 2. New onset type 2 diabetes?he says that 6 months ago he had an A1c of 6 during this admission his A1c was 8. I extensively discussed with him lifestyle modifications including diet and exercise. In the meantime we will provide him with a glucometer and testing strips and I started him on metformin 500 mg extended release daily. He does also have a high volume of protein in his urine and given that he is now a diabetic we will start him on a low-dose of lisinopril for renal protection. It does appear that he has a little bit of a metabolic syndrome going on as he has possible fatty liver with elevated total bilirubin as well as some some hepatomegaly with steatosis on his CT of his abdomen and pelvis. I do recommend outpatient monitoring with LFTs and if necessary referral to gastroenterology on an outpatient basis. Physical Exam Narrative General: Alert, Oriented x3, Cooperative, No apparent distress HEENT: Atraumatic, PERRLA, EOMI, Normocephalic Oral: Moist Mucosa Neck: Supple, No JVD Lungs: diminished, Normal air movement, No rhonchi, No wheeze, No rales Cardiovascular: Regular rate, Regular Rhythm, Normal S1, Normal S2, No murmurs Abdomen: Soft, Non Tender, Non-Distended, No Hepato-splenomegaly Extremities: Trace edema, Capillary Refill Less than 3 Seconds Skin: No rashes, No breakdown Musculoskeletal: No Tenderness to Palpation of Joints or Extremities Neurological: No focal neurological deficits, moves all extremities Psych/Mental Status: Normal Affect, Appropriate Weight / BMI Weight Weight: 337 lb 8.443 oz Body Mass Index (BMI) 43.3 ABG / Lab / Microbiology Data 01/22/25 04:58 01/22/25 04:58 Laboratory: Laboratory Results - last 24 hr 01/21/25 16:44: WBC 22.7 H, RBC 5.51, Hgb 15.0, Hct 44.5, MCV 80.8, MCH 27.2, MCHC 33.7, RDW Std Deviation 42.5, RDW Coeff of Martin 14.6, Plt Count 355, MPV 9.8, Immature Gran % (Auto) 1.000 H, Neut % (Auto) 73.2 H, Lymph % (Auto) 12.8 L , Howard % (Auto) 12.1 H, Eos % (Auto) 0.3, Baso % (Auto) 0.6, Absolute Neuts (auto) 16.6 H, Absolute Lymphs (auto) 2.89, Differential Comment SCANNED, Platelet Estimate ADEQUATE, ESR 70 H, D-Dimer Quant (PE/DVT) 0.48, Sodium 132 L, Potassium 4.0, Chloride 96 L, Carbon Dioxide 21.0, Anion Gap 15, BUN 13, C reatinine 1.26 H, Estim Creat Clear Calc 100.83, Est GFR (MDRD) Non-Af 66, BUN/Creatinine Ratio 10.5, Glucose 180 H, Hemoglobin A1c 8.0 H, Calcium 9.2, T otal Bilirubin 1.41 H, AST 29, ALT 29, Alkaline Phosphatase 92, Troponin T High Sens 15, NT pro BNP II 88, Total Protein 8.8 H, Albumin 4.2, Globulin 4.6 H, Albumin/Globulin Ratio 0.9 01/21/25 17:49: Urine Color Flores, Urine Clarity Turbid, Urine pH 5.0, Ur Specific Colton 1.025, Urine Protein 100 H, Urine Glucose (UA) 50 H, Urine Ketones 15 H, Urine Occult Blood 150 H, Urine Nitrite Positive H, Urine Bilirubin 1 H, Urine Urobilinogen 4 H, Ur Leukocyte Esterase 500 H, Urine RBC 0- 5 SEEN, Urine WBC 10-25 SEEN, Ur Squamous Epith Cells 5-10 SEEN, Amorphous Sediment 1+, Urine Bacteria 4+, Hyaline Casts 0-5 SEEN, Fine Granular Casts 0-5 SEEN, Coarse Granular Casts 0-5 SEEN, Urine Mucus 1+ 01/21/25 18:56: Troponin T Hi Sens 2 Hr 13, C-React Prot Ext Range 160.00 H, P rocalcitonin 0.14 H 01/22/25 04:58: WBC 15.5 H, RBC 5.24, Hgb 14.1, Hct 42.6, MCV 81.3, MCH 26.9 L, MCHC 33.1, RDW Std Deviation 42.5, RDW Coeff of Martin 14.4, Plt Count 291, MPV 10.3, Sodium 133, Potassium 4.1, Chloride 97 L, Carbon Dioxide 21.9, Anion Gap 14, BUN 16, Creatinine 0.98, Estim Creat Clear Calc 128.49, Est GFR (MDRD) Non- Af 89, BUN/Creatinine Ratio 16.3, Glucose 251 H, Calcium 8.8 01/22/25 06:41: POC Glucose 328 H Microbiology: Microbiology 01/21/25 17:49 Urine, Clean Catch Urine Culture - Preliminary GNR lactose intervention specialist 01/21/25 21:00 Mucosa - Nasopharyngeal Respiratory Panel (PCR) - Final Rhinovirus 01/21/25 21:00 Urine, Random Legionella Antigen - Final 01/21/25 21:00 Urine, Random Streptococcus pneumoniae Antigen (M - Final Radiography Diagnostic Testing: Radiology Impression Chest X-Ray 01/21/25 16:58 IMPRESSION: Bilateral patchy and reticular airspace opacities may be related to pulmonary edema, versus an infectious/inflammatory process depending on the clinical context. No pleural effusions. Reading Location: [facility] Chest/Abdomen/Pelvis CT 01/21/25 20:20 IMPRESSION: 1. Diffuse chronic interstitial lung disease. No definite focal consolidation. 2. Hepatomegaly and moderate diffuse hepatic steatosis. 3. Diffuse colonic diverticulosis with mild diverticulitis involving the proximal sigmoid colon. Reading Location: [facility] D/C Instructions Call your doctor if you observe: Fever of 101 or Higher, Shortness of breath, Dizziness, Fainting spells, Swelling in the ankles, Chest pain and Increased palpitations (irregular heartbeat) DC O2, CPAP, BIPAP Needs Home O2 Discharge instructions: No Meaningful Use Info Meaningful Use Meaningful Use Diagnoses (Choose all that apply): None applicable Discharge Plan Admission Admit Date/Time: 01/21/25 19:26 Attending Provider: Sy Stewart Primary Care Provider: Kj Schilling Consulting Providers: Robert Garrett Instructions Patient Instructions: A1C, Diabetes and Drinking Alcohol, Diabetes Exercise Starting, Diabetes Blood Glucose Check , Diabetes Food Tips , Diabetes Carbs Fats Protein Discharge Orders/Prescriptions Prescriptions: New azithromycin 500 mg tablet 500 mg PO DAILY 2 Days Qty: 2 0RF Rx Instructions: start on day 2 of therapy cefdinir 300 mg capsule 300 mg PO BID Qty: 10 0RF Rx Instructions: Start morning of 01/23/2025 metformin [Glucophage XR] 500 mg tablet extended release 24 hr 500 mg PO DAILY Qty: 30 3RF lisinopril 5 mg tablet 5 mg PO DAILY Qty: 30 3RF Continued hydroxyzine HCl 50 mg tablet 12.5 mg PO QHS PRN (Reason: itching) Patient Comments: pt states that he take 1/4 of a pill PRN for itching Referrals / Follow Up: Kj Schilling MD [Primary Care Provider] - Within 1 Week Disposition Disposition (needs filled in before D/C Order can be placed): Home, Self Care
--- NOTE | 2025-01-22 15:33 | CHAPLAIN ---
Type of Pastoral Visit _x__ Initial Visit ___ Follow-up Visit ___ On-call Visit ___ General Patient Visit ___ Spiritual Assessment ___ Family Conference ___ Bereavement ___ Rapid Response ___ Code Blue ___ Other (describe below) Pastoral Care Referral From _x__ Patient ___ Family ___ Nurse ___ Physician ___ Track Broom Operator ___ Adjunct Instructor ___ Other (describe below) Sacrament/Intervention _x__ Active listening ___ Anointing ___ Scientology ___ Bereavement ___ Communion ___ Karime exploration ___ ___ Life review ___ Prayer ___ Reconciliation ___ Sacrament of Sick _x__ Supportive presence ___ Wedding ___ Other (describe below) Pastoral Comments first attempt to visit and the DR was in the room consulting with the patient; on second attempt the patient welcomed this horse racer but stated that he was being discharged this afternoon; pt is upbeat and says that the worse things were ruled out and that he was feeling much better; pt described his physical health and how it was shocking to him; pt believes that he is doing better and able to go home; pt denies further support but is grateful for having someone ask about him
[2025-01-23 05:07] LABS: Alpha Antitrypsin Serum 228 mg/dL (101-187)
== END 2025-01-22 14:21 | disposition home or self-care (01) | DRG 197 ==
LOC: ED 17:02 → PCU 20:00
PROVIDERS: Admitting Provider Hospitalist; Emergency Provider Surgery; PCP Family Medicine; Visit Provider Family Medicine
DX: J84.9 Interstitial pulmonary disease, unspecified (principal); Z68.41 Body mass index [BMI] 40.0-44.9, adult; N39.0 Urinary tract infection, site not specified; B96.20 Unspecified Escherichia coli [E. coli] as the cause of diseases classified elsewhere; E11.9 Type 2 diabetes mellitus without complications; E66.813 Obesity, class 3; B97.89 Other viral agents as the cause of diseases classified elsewhere; K76.0 Fatty (change of) liver, not elsewhere classified; R06.02 Shortness of breath; Z96.649 Presence of unspecified artificial hip joint; R79.89 Other specified abnormal findings of blood chemistry
CPT/HCPCS: 36415; 71046; 71260; 74177; 80048; 80053; 81001; 82103; 82962; 83036; 83880; 84145; 84484; 85025; 85027; 85379; 85652; 86140; 87070; 87077; 87086; 87088; 87186; 87205; 87449; 87633; 93005; 94668; 99285; Q9967; A4216; J0696; J1938